=== PATIENT | male | born 1950 | race Caucasian/White ===

== ENCOUNTER 2022-09-07 06:30 | Day surgery (SDC) | payer OTHER ==
--- NOTE | 2022-09-03 13:11 | RAD REPORT ---
EXAM DESCRIPTION: RAD - Chest Pa And Lat (2 Views) - 09/03/2022 12:58 pm CLINICAL HISTORY: Pre op pending heart catheterization Chest pain. TECHNIQUE: PA and lateral views of the chest were obtained. FINDINGS: The lungs are hyperexpanded compatible with COPD. The heart is upper limit of normal in si ze. No fracture or aggressive bony process. Sternotomy wires. IMPRESSION: COPD without acute process identified. The USPSTF recommends annual screening for lung cancer with low-dose CT (LDCT) in adults aged 50 to 8 0 years who have a 20 pack-year smoking history and currently smoke or have quit within the past 15 y ears.
[2022-09-03 13:12] LABS: Absolute Lymphocytes (CBC) 1.1 K/uL (0.7-4.9); Hematocrit 42.2 % (39.6-49.0); Lymphocytes % 18.2 % (15.3-44.8); MCV 86.6 fL (80-100); MPV 8.1 fL (7.6-11.3); RBC Red Blood Cell Count 4.87 M/uL (4.33-5.43)
[2022-09-03 13:18] LABS: Protime INR 1.1
[2022-09-03 13:25] LABS: Potassium 4.4 mEq/L (3.5-5.1)
[2022-09-07] MEDS ORDERED: LIDOCAINE 1% 20 ML MDV ONE (06:46)
[2022-09-07] MEDS ORDERED: VERAPAMIL HCL 10 MG/4 ML VIAL IV ONE (06:47)
[2022-09-07] MEDS ORDERED: HEPARIN 5000 UNIT/ML 1 ML VIAL ONE (06:47)
[2022-09-07] MEDS ORDERED: MIDAZOLAM HCL 2 MG/2 ML INJ ONE (06:47)
[2022-09-07] MEDS ORDERED: FENTANYL CITR 100 MCG/2 ML ONE (06:47)
[2022-09-07] MEDS ORDERED: HEPARIN 10,000 UNIT/10 ML VIAL IV ONE ×2 (06:48→07:06)
[2022-09-07] MEDS ORDERED: CLOPIDOGREL 75 MG TABLET ONE (06:48)
[2022-09-07] MEDS ORDERED: ASPIRIN 325 MG TAB ONE (06:48)
[2022-09-07] MEDS ORDERED: NITROGLYCERIN 100 MCG/ML SYR (for cath lab use only) IV ONE (06:48)
[2022-09-07] MEDS ORDERED: TICAGRELOR 90 MG TABLET PO ONE (06:48)
[2022-09-07] MEDS ORDERED: ATROPINE SULF 1 MG/10 ML SYR IV ONE (06:48)
[2022-09-07] MEDS ORDERED: HEPA 1000U/500MLS 2,000 UNIT/1,000 ML BAG IV ONE (06:49)
[2022-09-07] MEDS ORDERED: NITROGLYCERIN/D5W 25 MG/250 ML BTL IV ONE (06:49)
[2022-09-07] MEDS ORDERED: NA CHLORIDE 0.9% 500 ML ONE (07:03)
[2022-09-07] MEDS ORDERED: METOPROLOL TARTRATE 5 MG/5 ML INJ IV ONE (08:07)
[2022-09-07 09:57] VITALS: BP 115/64; O2SAT 99
--- NOTE | 2022-09-07 17:59 | EKG ---
Test Date: 2022-09-03 Test Time: 12:38:39 Senior Business Intelligence Analyst: RADHA MEASUREMENT RESULTS: Intervals: Rate: 56 AR: 230 QRSD: 102 QT: 462 QTc: 445 Connelly: P: 39 AR: 230 QRS: -12 T: 18 INTERPRETIVE STATEMENTS: Sinus bradycardia with 1st degree AV block Nonspecific T wave abnormality Abnormal ECG Compared to ECG 03/04/2008 10:21:26 First degree AV block now present Sinus rhythm no longer present Myocardial infarct finding no longer present Possible ischemia no longer present T-wave abnormality still present Electronically Signed On 09-07-22 17:53:03 CDT by Scout Forte
--- NOTE | 2022-09-07 18:10 | OP ---
Date of Procedure: 09/07/2022 Surgeon: NIKKI HURST Procedure Performed: Selective coronary angiogram with bypass graft study. Indication: Abnormal stress test with chest pain. Access: Right femoral artery 6-Tanzanian closed with TR band. Complications: None. Bleeding: Less than 20 mL. Anesthesia: Total sedation time was 50 minutes. Description Of Procedure: After risks, benefits, alternatives were explained, the patient agreed to the procedure and signed informed consent. The patient was brought into the cardiac catheterization laboratory, prepped and draped in the usual sterile fashion. Then, I accessed the right femoral sonny ry using micropuncture kit, fluoroscopy, and ultrasound guidance, placed a 6-Tanzanian [place] sheath a nd took a 6-Tanzanian JL4 catheter into the aortic root, engaged the left main, took standard views and then exchanged for 6-Tanzanian JR4 catheter, engaged the RCA, took standard views and the catheter was p ushed over the wire into the LV, measured LVEDP and pullback did not record any gradient. LVEDP was elevated. Then using the JR4 catheter, engaged the SVG graft to the OM that was patent and could not find any other venous grafts. Also engaged the YUEN and the YUEN was not connected to the heart in fact it was small and arteritic. Then, I removed the catheter and sheath and placed a 6-Tanzanian Angio -Seal for closure with good hemostasis. Findings: 1.Left main; large and normal. 2.LAD; proximal segment appears to be normal. The mid segment, there is 90% stenosis, heavily calci fied. It is a long legion. Diagonal branches appear to be normal and the distal LAD and the septal branches give collaterals to the RCA. 3.Left circumflex; it is a small vessel, severely diseased proximally with patent SVG graft to OM. 4.RCA has proximal to mid stent with severe diffuse stenosis ranging between 70% and 90% and then it becomes a totally occluded to IRONER, gives collaterals from the LAD. 5.LVEDP elevated at 21 mmHg. 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 I only saw 1 graft that is fun ctional. YUEN definitely is not connected to the heart and it is very small and arteritic. The vanessa ent has severe LAD stenosis. I do not see any complication flow to the LAD. Plan: I will plan for a PCI of the LAD with atherectomy versus shockwave to be done at [facility]. I believe if we revascularized the LAD, the patient will do very well. We will schedule this after I discussed this in details with him and the family at the office. /KALPESH Voice ID: [id number] Report ID: [id number]
== END 2022-09-07 10:09 | disposition home or self-care (01) ==
LOC: CCL 06:30
PROVIDERS: ATTEND Internal Medicine
DX: I25.10 Atherosclerotic heart disease of native coronary artery without angina pectoris (principal); I25.82 Chronic total occlusion of coronary artery; I48.0 Paroxysmal atrial fibrillation; I10 Essential (primary) hypertension; E78.5 Hyperlipidemia, unspecified; I65.29 Occlusion and stenosis of unspecified carotid artery; Z79.899 Other long term (current) drug therapy; Z82.49 Family history of ischemic heart disease and other diseases of the circulatory system
CPT/HCPCS: 93005; 85025; 80048; 36415; 85610; 82947; 85730; 71046; 93567; 93459; 76937; C1893; C1760; Q9967; C1887; G0269; J2001; J2250; J3010; J7040; J0461; J1644

== ENCOUNTER 2023-05-04 08:02 | Day surgery (SDC) | payer OTHER ==
--- NOTE | 2023-04-30 09:22 | RAD REPORT ---
EXAM DESCRIPTION: RAD - Chest Pa And Lat (2 Views) - 04/30/2023 9:07 am CLINICAL HISTORY: Pre op pending Space Oar gel and implants. Hypertension COMPARISON: Chest Pa And Lat (2 Views) dated 09/03/2022; CHEST SINGLE VIEW dated 03/04/2008; CHEST PA AND LAT 2 VIEW dated 06/21/2005; CHEST SINGLE VIEW dated 06/21/2005 TECHNIQUE: PA and lateral views of the chest were obtained. FINDINGS: The lungs are clear. Heart size is normal and central vasculature is within normal limits, with sequelae of CABG again seen. No pleural effusion or pneumothorax seen. No acute bony finding no doc. IMPRESSION: No acute cardiopulmonary process.
[2023-04-30 09:43] LABS: Protime INR 1.07
[2023-05-04] MEDS: NA CHLORIDE 0.9% 1,000 ML ONE (08:40)
[2023-05-04] MEDS ORDERED: LIDOCAINE 1% MPF 5 ML VIAL ONE (09:51)
[2023-05-04] MEDS ORDERED: ONDANSETRON 4 MG/2 ML VIAL ONE (09:51)
[2023-05-04] MEDS ORDERED: KETOROLAC 30 MG/ML INJ ONE (09:52)
[2023-05-04] MEDS ORDERED: MIDAZOLAM HCL 2 MG/2 ML INJ ONE (09:52)
[2023-05-04] MEDS ORDERED: propofoL 200 MG/20 ML VIAL IV ONE (09:52)
[2023-05-04] MEDS ORDERED: FENTANYL CITR 100 MCG/2 ML ONE (09:52)
[2023-05-04] MEDS: CEFAZOLIN SODIUM 1 GM/VIAL ONE (10:20)
[2023-05-04] MEDS ORDERED: EPHEDRINE SULF 50 MG/ML VIAL ONE (10:22)
[2023-05-04] MEDS ORDERED: CODEINE 30MG/APAP 300MG TAB PO PRN (10:56)
[2023-05-04 13:08] VITALS: BP 126/65; TEMP 97.7; O2SAT 98
--- NOTE | 2023-05-04 14:37 | OP ---
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 2.Perineural invasion present. 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 2.Perineural invasion present. Principle Procedure: Transrectal ultrasound-guided transperineal placement of 2 fiducial markers. Transrectal ultrasound-guided SpaceOAR gel insertion. Indication For Procedure: Mr. Maria presented to the [facility] with a nodule in his prostate a nd elevated PSA, underwent a biopsy of the prostate revealing grade group 2 adenocarcinoma of the pro state plus perineural invasion. He was counseled on options for management and elected to proceed wi radiation therapy. He was then requested to have fiducial markers placed as well as the SpaceOAR gel inserted. Procedure In Detail: The patient was consented in the preoperative holding area before being transfe rred to the operative suite where general anesthesia was induced. He was given Ancef 2 g IV antimicr obial prophylaxis, and pneumo boots were provided for DVT prophylaxis. He was placed high in the lit hotomy position, padded and secured to the table appropriately. His genitalia were elevated out of t he perineal region using an Ioban drape, and the perineum itself was prepped with Betadine before paola ng draped in standard fashion. The transrectal ultrasound probe had been placed prior to prepping e perineum free hand via his anus into his rectum with ease. The stepper device was used to hold the probe in place, and the prostate was visualized from the apex to beyond the seminal vesicles in both axial as well as sagittal dimensions. The case was begun by placing a fiducial marker in the patien t's right lateral portion of his prostate successfully. This was done by inserting the fiducial kortney er needle through the perineum using ultrasound guidance. On the patient's left side, while there wa s significant periurethral calcifications, more laterally in the prostate and anteriorly, I placed a second fiducial marker on the patient's left side in the mid portion of the prostate. Once the fiduc ial markers had been successfully placed, I then navigated the ultrasound probe back to the midline a nd using the SpaceOAR needle with the bevel up, I inserted the needle via the perineum and navigated it under ultrasound guidance over the rectal hump and into the fat plane the base of the p rostate and the rectum beneath the space of [place]. I was able to navigate this successfully and with ease to the mid base portion of the prostate where I then switched back to axial imaging and ensured the needle was positioned directly in the midline. It was, and so I aspirated to ensure no blood or succus was obtained, and once no blood was obtained, I then injected a half a cc of saline w hich did distribute evenly across the midline of the prostate the rectum from the base of the prostate. As a result, given the beautiful hydrodissection, I then switched the syringe of salin e for the SpaceOAR component mixture and injection device, which I then attached to the needle and th en continuously injected the mixture into the previously marked hydrodissected space creating a beaut iful buffer between the rectum and the base of the prostate as evidenced ultrasonographically. I the n removed the SpaceOAR needle and held some pressure at the site of the needle insertion through the skin for a couple of minutes for the mild oozing observed there. The Betadine was cleaned away from his perineum, and the Ioban drape was removed. The ultrasound probe was also removed, and he was the n taken out of the lithotomy position. He was then awakened from general anesthesia, transferred to a stretcher, and then transferred to the recovery room in good condition. Complications: None. Discharge Disposition: He may follow up with Dr. Flaherty and initiate Radiation Oncology treatment as necessary at this point. Subsequent followup should be established with me approximately 6 months after completion of radiation therapy, anticipated within the next 3 months. He may follow up soone r if he has increased issues with bothersome lower urinary symptoms or other complications associated with the radiation therapy. Similarly, if he has any issues or complications following this procedure, he should follow up sooner for interval assessment. CRISTINA/SAKINAL Voice ID: [id number] Report ID: [id number]
== END 2023-05-04 12:28 | disposition home or self-care (01) ==
LOC: OR 08:02
PROVIDERS: ATTEND Urology
PROC: 0VH43YZ Insertion of Other Device into Prostate and Seminal Vesicles, Percutaneous Approach (ICD-10-PCS; principal; 2023-05-04 09:00)
DX: C61 Malignant neoplasm of prostate (principal); I25.10 Atherosclerotic heart disease of native coronary artery without angina pectoris; E11.9 Type 2 diabetes mellitus without complications; I10 Essential (primary) hypertension; Z95.1 Presence of aortocoronary bypass graft
CPT/HCPCS: 87086; 36415; 85610; 82947 ×2; 85730; 71046; 55874; J2704; J2001; J2250; J3010; J2405; J7030; J0690; 87088

== ENCOUNTER 2023-07-09 23:48 | Inpatient (IN) | payer OTHER ==
--- OUTSIDE RECORDS SUMMARY | 2023-07-09 23:54 | XMS REPORT | Continuity of Care Document ---
Author Name Unknown Address [address] [facility] [address] [place] [address] [facility] Address [address] [facility]. [address] [place] [address] Care Team Providers Care Shipping And Receiving Associate Name Role Phone Afsaneh King Attending Clinician Unavailable Anupam_T Attending Clinician Unavailable Sumit Attending Clinician UnavailAlfredo Cummings Attending Clinician Unavailable Omid Nagel Attending Clinician Unavailable Chai Null Attending Clinician UnavailKarie Florez Attending Clinician [phone] Chai Null Attending Clinician [phone] AleydaT Admitting Clinician Unavailable Sumit Admitting Clinician UnavailChai Smith Admitting Clinician UnavailOmid Thomas Admitting Clinician Unavailable Physician, No Primary or Family Admitting Clinic shayna Unavailable Payers Payer Name Policy Type Policy Number Effective Date Expirati on Date Source [employer] (MEDICARE REPLACEMENT PPO) [id number] 2022 00:00:00 [employer] MEDICARE PPO [id number] 2021 00:00:00 [facility] Problems Condition Name Condition Details Condition Category Status Onset Date Resolution Date Last Treatment Date Treating Clinician Comments Source Spinal stenosis of lumbar region Spinal Stenosis of Lumbar Region Problem Active 04-10 00:00: 00 [facility] Lumbar radiculopa thy Lumbar Radiculopa thy Problem Active 4-13 00:00: 00 [facility] Lumbosacra l spondylosi s Lumbosacra l Spondylosi s Problem Active 04-15 00:00: 00 [facility] Degenerati on of lumbar interverte bral disc Degenerati on of Lumbar Interverte bral Disc Problem Active 04-15 00:00: 00 [facility] Chronic low back pain Chronic Low Back Pain Problem Active 08-08 00:00: 00 [facility] [id number] Dizziness and giddiness Problem [facility] [id number] Elevated PSA Problem [facility] [id number] Benign prostatic hyperplasi a with lower urinary tract symptoms Problem [facility] [id number] Coronary artery disease involving grindstone coronary artery of grindstone heart, unspecifie d whether angina present Problem [facility] [id number] Antiplatel et or antithromb otic long-term use Problem [facility] [id number] Incomplete emptying of bladder Problem [facility] [id number] Other obstructiv e and reflux uropathy Problem [facility] [id number] Prostate nodule Problem [facility] [id number] Cancer of prostate with intermedia te recurrence risk (stage T2b-c or Grahn 7 or PSA 10-20) Problem [facility] [id number] Migraine with aura and without status migrainosu s, not intractabl e Problem [facility] [id number] Gastroesop hageal reflux disease without esophagiti s Problem [facility] [id number] Coronary artery disease involving grindstone coronary artery of grindstone heart without angina pectoris Problem [facility] [id number] NASIM (obstructi ve sleep apnea) Problem [facility] [id number] Arthritis Problem [facility] [id number] Moderate mixed hyperlipid emia not requiring statin therapy Problem [facility] [id number] Type 2 diabetes mellitus with other windows laptop technician y complicati on, without long-term current use of insulin Problem [facility] [id number] Primary hypertensi on Problem [facility] [id number] Hx of myocardial infarction Problem [facility] [id number] BMI 32.0-32.9, adult Problem [facility] Allergies, Adverse Reactions, Alerts Allergy Name Allergy Type Status Severity Reaction(s) Onset Date Inactive Date Treating Clinician Comments Source No Known Allergie s DA Active U 09-25 00:00: 00 [facility] No Known Allergie s DA Active U 09-24 00:00: 00 [facility] No Known Allergie s DA Active U 07-01 00:00: 00 [facility] No Known Allergie s DA Active U 4-12 00:00: 00 [facility] Social History Social Habit Start Date Stop Date Quantity Comments Source History of Tobacco Use [facility] Sex Assigned At [facility] Smoking Status Start Date Stop Date Source [facility] Medications Ordered Medication Name Filled Medication Name Start Date Stop Date Current Medication? Ordering Clinician Indication Dosage Frequency Signature (SIG) Comments Components Source Gentamicin 80mg Gentamicin 80mg 3- 00:00: 00 No 240mg [facility] Gentamicin 80mg Gentamicin 80mg 2023-0 3-31 00:00: 00 No 240mg [facility] Gentamicin 80mg Gentamicin 80mg 3-0 3-31 00:00: 00 No 240mg [facility] Gentamicin 80mg Gentamicin 80mg 3-0 3-31 00:00: 00 No 240mg [facility] Gentamicin 80mg Gentamicin 80mg 3-0 3-31 00:00: 00 No 240mg [facility] Gentamicin 80mg Gentamicin 80mg 3-0 3-31 00:00: 00 No 240mg [facility] Gentamicin 80mg Gentamicin 80mg 3-0 3-31 00:00: 00 No 240mg [facility] Gentamicin 80mg Gentamicin 80mg 3-0 3-31 00:00: 00 No 240mg [facility] Gentamicin 80mg Gentamicin 80mg 3-0 3-31 00:00: 00 No 240mg [facility] Gentamicin 80mg Gentamicin 80mg 3-0 3-31 00:00: 00 No 240mg [facility] Gentamicin 80mg Gentamicin 80mg 3-0 3-31 00:00: 00 No 240mg [facility] Gentamicin 80mg Gentamicin 80mg 3-0 3-31 00:00: 00 No 240mg [facility] Gentamicin 80mg Gentamicin 80mg 3-0 3-31 00:00: 00 No 240mg [facility] Gentamicin 80mg Gentamicin 80mg 3-0 3-31 00:00: 00 No 240mg [facility] Gentamicin 80mg Gentamicin 80mg 3-0 3-31 00:00: 00 No 240mg [facility] Gentamicin 80mg Gentamicin 80mg 3-0 3-31 00:00: 00 No 240mg [facility] Gentamicin 80mg Gentamicin 80mg 3-0 3-31 00:00: 00 No 240mg [facility] Gentamicin 80mg Gentamicin 80mg 2023-0 3-31 00:00: 00 No 240mg [facility] aspirin 81 mg tablet,marisol yed release aspirin 81 mg tablet,marisol yed release 04-15 00:00: 00 No aspirin 81 mg tablet,del ayed release [facility] hydrochloro thiazide 12.5 mg capsule hydrochloro thiazide 12.5 mg capsule 04-15 00:00: 00 No hydrochlor othiazide 12.5 mg capsule [facility] metformin 1,000 mg tablet metformin 1,000 mg tablet 04-15 00:00: 00 No metformin 1,000 mg tablet [facility] Multiple Vitamin Multiple Vitamin 04-15 00:00: 00 No Multiple Vitamin [facility] aspirin 81 mg tablet,marisol yed release aspirin 81 mg tablet,marisol yed release 04-15 00:00: 00 No aspirin 81 mg tablet,del ayed release [facility] hydrochloro thiazide 12.5 mg capsule hydrochloro thiazide 12.5 mg capsule 04-15 00:00: 00 No hydrochlor othiazide 12.5 mg capsule [facility] metformin 1,000 mg tablet metformin 1,000 mg tablet 04-15 00:00: 00 No metformin 1,000 mg tablet [facility] Multiple Vitamin Multiple Vitamin 04-15 00:00: 00 No Multiple Vitamin [facility] aspirin 81 mg tablet,marisol yed release aspirin 81 mg tablet,marisol yed release 04-15 00:00: 00 No aspirin 81 mg tablet,del ayed release [facility] hydrochloro thiazide 12.5 mg capsule hydrochloro thiazide 12.5 mg capsule 04-15 00:00: 00 No hydrochlor othiazide 12.5 mg capsule [facility] metformin 1,000 mg tablet metformin 1,000 mg tablet 04-15 00:00: 00 No metformin 1,000 mg tablet [facility] Multiple Vitamin Multiple Vitamin 04-15 00:00: 00 No Multiple Vitamin [facility] aspirin 81 mg tablet,marisol yed release aspirin 81 mg tablet,marisol yed release 04-15 00:00: 00 No aspirin 81 mg tablet,del ayed release [facility] hydrochloro thiazide 12.5 mg capsule hydrochloro thiazide 12.5 mg capsule 04-15 00:00: 00 No hydrochlor othiazide 12.5 mg capsule [facility] metformin 1,000 mg tablet metformin 1,000 mg tablet 04-15 00:00: 00 No metformin 1,000 mg tablet [facility] Multiple Vitamin Multiple Vitamin 04-15 00:00: 00 No Multiple Vitamin [facility] aspirin 81 mg tablet,marisol yed release aspirin 81 mg tablet,marisol yed release 04-15 00:00: 00 No aspirin 81 mg tablet,del ayed release [facility] metformin 1,000 mg tablet metformin 1,000 mg tablet 04-15 00:00: 00 No metformin 1,000 mg tablet [facility] Multiple Vitamin Multiple Vitamin 04-15 00:00: 00 No Multiple Vitamin [facility] aspirin 81 mg tablet,marisol yed release aspirin 81 mg tablet,marisol yed release 04-15 00:00: 00 No aspirin 81 mg tablet,del ayed release [facility] hydrochloro thiazide 12.5 mg capsule hydrochloro thiazide 12.5 mg capsule 04-15 00:00: 00 No hydrochlor othiazide 12.5 mg capsule [facility] metformin 1,000 mg tablet metformin 1,000 mg tablet 04-15 00:00: 00 No metformin 1,000 mg tablet [facility] Multiple Vitamin Multiple Vitamin 04-15 00:00: 00 No Multiple Vitamin [facility] Tricor 145 mg tablet Tricor 145 mg tablet 04-15 00:00: 00 No Tricor 145 mg tablet [facility] aspirin 81 mg tablet,marisol yed release aspirin 81 mg tablet,marisol yed release 04-15 00:00: 00 No aspirin 81 mg tablet,del ayed release [facility] hydrochloro thiazide 12.5 mg capsule hydrochloro thiazide 12.5 mg capsule 04-15 00:00: 00 No hydrochlor othiazide 12.5 mg capsule [facility] metformin 1,000 mg tablet metformin 1,000 mg tablet 04-15 00:00: 00 No metformin 1,000 mg tablet [facility] Multiple Vitamin Multiple Vitamin 04-15 00:00: 00 No Multiple Vitamin [facility] Medrol (Genaro) 4 mg tablets in a dose pack take as directed Medrol (Genaro) 4 mg tablets in a dose pack take as directed 0 08-08 00:00: 00 No Medrol (Genaro) 4 mg tablets in a dose pack take as directed [facility] Medrol (Genaro) 4 mg tablets in a dose pack take as directed Medrol (Genaro) 4 mg tablets in a dose pack take as directed 08-08 00:00: 00 No Medrol (Genaro) 4 mg tablets in a dose pack take as directed [facility] Medrol (Genaro) 4 mg tablets in a dose pack take as directed Medrol (Genaro) 4 mg tablets in a dose pack take as directed 08-08 00:00: 00 No Medrol (Genaro) 4 mg tablets in a dose pack take as directed [facility] Brilinta 90 mg tablet TAKE 1 TABLET BY MOUTH TWICE A DAY Brilinta 90 mg tablet TAKE 1 TABLET BY MOUTH TWICE A DAY No Brilinta 90 mg tablet TAKE 1 TABLET BY MOUTH TWICE A DAY [facility] ciprofloxac in 500 mg tablet TAKE 1 TABLET BY MOUTH TWICE A DAY FOR 3 DAYS STARTING TODAY ciprofloxac in 500 mg tablet TAKE 1 TABLET BY MOUTH TWICE A DAY FOR 3 DAYS STARTING TODAY No ciprofloxa priya 500 mg tablet TAKE 1 TABLET BY MOUTH TWICE A DAY FOR 3 DAYS STARTING TODAY [facility] fenofibrate nanocrystal lized 145 mg tablet fenofibrate nanocrystal lized 145 mg tablet No fenofibrat e nanocrysta llized 145 mg tablet [facility] gabapentin 300 mg capsule TAKE 1 CAPSULE BY MOUTH TWICE A DAY gabapentin 300 mg capsule TAKE 1 CAPSULE BY MOUTH TWICE A DAY No gabapentin 300 mg capsule TAKE 1 CAPSULE BY MOUTH TWICE A DAY [facility] glimepiride 1 mg tablet TAKE 1 TABLET BY MOUTH EVERY DAY WITH BREAKFAST OR THE FIRST MAIN MEAL OF THE DAY FOR 90 DAYS glimepiride 1 mg tablet TAKE 1 TABLET BY MOUTH EVERY DAY WITH BREAKFAST OR THE FIRST MAIN MEAL OF THE DAY FOR 90 DAYS No glimepirid e 1 mg tablet TAKE 1 TABLET BY MOUTH EVERY DAY WITH BREAKFAST OR THE FIRST MAIN MEAL OF THE DAY FOR 90 DAYS [facility] hydrochloro thiazide 12.5 mg capsule TAKE 1 CAPSULE BY MOUTH EVERY DAY IN THE MORNING FOR 90 DAYS hydrochloro thiazide 12.5 mg capsule TAKE 1 CAPSULE BY MOUTH EVERY DAY IN THE MORNING FOR 90 DAYS No hydrochlor othiazide 12.5 mg capsule TAKE 1 CAPSULE BY MOUTH EVERY DAY IN THE MORNING FOR 90 DAYS [facility] hydrochloro thiazide 12.5 mg tablet TAKE 1 TABLET BY MOUTH EVERY DAY hydrochloro thiazide 12.5 mg tablet TAKE 1 TABLET BY MOUTH EVERY DAY No hydrochlor othiazide 12.5 mg tablet TAKE 1 TABLET BY MOUTH EVERY DAY [facility] isosorbide mononitrate ER 30 mg tablet,exte nded release 24 hr TAKE 1 TABLET BY MOUTH EVERY DAY IN THE MORNING isosorbide mononitrate ER 30 mg tablet,exte nded release 24 hr TAKE 1 TABLET BY MOUTH EVERY DAY IN THE MORNING No isosorbide mononitrat e ER 30 mg tablet,ext ended release 24 hr TAKE 1 TABLET BY MOUTH EVERY DAY IN THE MORNING [facility] simvastatin 80 mg tablet simvastatin 80 mg tablet No simvastati n 80 mg tablet [facility] sotalol 80 mg tablet sotalol 80 mg tablet No sotalol 80 mg tablet [facility] tadalafil 20 mg tablet TAKE 1 TABLET BY MOUTH ONCE DAILY NEEDED FOR 30 DAYS tadalafil 20 mg tablet TAKE 1 TABLET BY MOUTH ONCE DAILY NEEDED FOR 30 DAYS No tadalafil 20 mg tablet TAKE 1 TABLET BY MOUTH ONCE DAILY NEEDED FOR 30 DAYS [facility] tadalafil 5 mg tablet TAKE 1 TABLET BY MOUTH ONCE DAILY tadalafil 5 mg tablet TAKE 1 TABLET BY MOUTH ONCE DAILY No tadalafil 5 mg tablet TAKE 1 TABLET BY MOUTH ONCE DAILY [facility] tamsulosin 0.4 mg capsule TAKE 1 CAPSULE BY MOUTH EVERY DAY FOR 30 DAYS tamsulosin 0.4 mg capsule TAKE 1 CAPSULE BY MOUTH EVERY DAY FOR 30 DAYS No tamsulosin 0.4 mg capsule TAKE 1 CAPSULE BY MOUTH EVERY DAY FOR 30 DAYS [facility] telmisartan 80 mg tablet telmisartan 80 mg tablet No telmisarta n 80 mg tablet [facility] amlodipine 10 mg tablet TAKE 1 TABLET BY MOUTH EVERY DAY amlodipine 10 mg tablet TAKE 1 TABLET BY MOUTH EVERY DAY No amlodipine 10 mg tablet TAKE 1 TABLET BY MOUTH EVERY DAY [facility] amoxicillin 500 mg capsule TAKE 2 CAPSULES BY MOUTH NOW THEN 1 CAPSULE BY MOUTH FOUR TIMES DAILY UNTIL ALL TAKEN amoxicillin 500 mg capsule TAKE 2 CAPSULES BY MOUTH NOW THEN 1 CAPSULE BY MOUTH FOUR TIMES DAILY UNTIL ALL TAKEN No amoxicilli n 500 mg capsule TAKE 2 CAPSULES BY MOUTH NOW THEN 1 CAPSULE BY MOUTH FOUR TIMES DAILY UNTIL ALL TAKEN [facility] atorvastati n 40 mg tablet TAKE 1 TABLET BY MOUTH EVERYDAY AT BEDTIME atorvastati n 40 mg tablet TAKE 1 TABLET BY MOUTH EVERYDAY AT BEDTIME No atorvastat in 40 mg tablet TAKE 1 TABLET BY MOUTH EVERYDAY AT BEDTIME [facility] Brilinta 90 mg tablet TAKE 1 TABLET BY MOUTH TWICE A DAY Brilinta 90 mg tablet TAKE 1 TABLET BY MOUTH TWICE A DAY No Brilinta 90 mg tablet TAKE 1 TABLET BY MOUTH TWICE A DAY [facility] ciprofloxac in 500 mg tablet TAKE 1 TABLET BY MOUTH TWICE A DAY FOR 3 DAYS STARTING TODAY ciprofloxac in 500 mg tablet TAKE 1 TABLET BY MOUTH TWICE A DAY FOR 3 DAYS STARTING TODAY No ciprofloxa priya 500 mg tablet TAKE 1 TABLET BY MOUTH TWICE A DAY FOR 3 DAYS STARTING TODAY [facility] fenofibrate nanocrystal lized 145 mg tablet fenofibrate nanocrystal lized 145 mg tablet No fenofibrat e nanocrysta llized 145 mg tablet [facility] gabapentin 300 mg capsule TAKE 2 CAPSULES 3 TIMES A DAY BY MOUTH FOR 30 DAYS. gabapentin 300 mg capsule TAKE 2 CAPSULES 3 TIMES A DAY BY MOUTH FOR 30 DAYS. No gabapentin 300 mg capsule TAKE 2 CAPSULES 3 TIMES A DAY BY MOUTH FOR 30 DAYS. [facility] glimepiride 1 mg tablet TAKE 1 TABLET BY MOUTH EVERY DAY WITH BREAKFAST OR THE FIRST MAIN MEAL OF THE DAY glimepiride 1 mg tablet TAKE 1 TABLET BY MOUTH EVERY DAY WITH BREAKFAST OR THE FIRST MAIN MEAL OF THE DAY No glimepirid e 1 mg tablet TAKE 1 TABLET BY MOUTH EVERY DAY WITH BREAKFAST OR THE FIRST MAIN MEAL OF THE DAY [facility] hydrochloro thiazide 12.5 mg capsule TAKE 1 CAPSULE BY MOUTH EVERY DAY IN THE MORNING hydrochloro thiazide 12.5 mg capsule TAKE 1 CAPSULE BY MOUTH EVERY DAY IN THE MORNING No hydrochlor othiazide 12.5 mg capsule TAKE 1 CAPSULE BY MOUTH EVERY DAY IN THE MORNING [facility] hydrochloro thiazide 12.5 mg tablet TAKE 1 TABLET BY MOUTH EVERY DAY hydrochloro thiazide 12.5 mg tablet TAKE 1 TABLET BY MOUTH EVERY DAY No hydrochlor othiazide 12.5 mg tablet TAKE 1 TABLET BY MOUTH EVERY DAY [facility] hydrocodone 7.5 mg-acetamin ophen 325 mg tablet TAKE 1 TABLET BY MOUTH EVERY 6 HOURS NEEDED FOR PAIN hydrocodone 7.5 mg-acetamin ophen 325 mg tablet TAKE 1 TABLET BY MOUTH EVERY 6 HOURS NEEDED FOR PAIN No hydrocodon e 7.5 mg-acetami nophen 325 mg tablet TAKE 1 TABLET BY MOUTH EVERY 6 HOURS NEEDED FOR PAIN [facility] isosorbide mononitrate ER 30 mg tablet,exte nded release 24 hr TAKE 1 TABLET BY MOUTH EVERY DAY IN THE MORNING isosorbide mononitrate ER 30 mg tablet,exte nded release 24 hr TAKE 1 TABLET BY MOUTH EVERY DAY IN THE MORNING No isosorbide mononitrat e ER 30 mg tablet,ext ended release 24 hr TAKE 1 TABLET BY MOUTH EVERY DAY IN THE MORNING [facility] simvastatin 80 mg tablet simvastatin 80 mg tablet No simvastati n 80 mg tablet [facility] sotalol 80 mg tablet TAKE 1 TABLET BY MOUTH TWICE A DAY sotalol 80 mg tablet TAKE 1 TABLET BY MOUTH TWICE A DAY No sotalol 80 mg tablet TAKE 1 TABLET BY MOUTH TWICE A DAY [facility] tadalafil 20 mg tablet TAKE 1 TABLET BY MOUTH ONCE DAILY NEEDED FOR 30 DAYS tadalafil 20 mg tablet TAKE 1 TABLET BY MOUTH ONCE DAILY NEEDED FOR 30 DAYS No tadalafil 20 mg tablet TAKE 1 TABLET BY MOUTH ONCE DAILY NEEDED FOR 30 DAYS [facility] tadalafil 5 mg tablet TAKE 1 TABLET BY MOUTH ONCE DAILY tadalafil 5 mg tablet TAKE 1 TABLET BY MOUTH ONCE DAILY No tadalafil 5 mg tablet TAKE 1 TABLET BY MOUTH ONCE DAILY [facility] tamsulosin 0.4 mg capsule TAKE 1 CAPSULE BY MOUTH EVERY DAY FOR 30 DAYS tamsulosin 0.4 mg capsule TAKE 1 CAPSULE BY MOUTH EVERY DAY FOR 30 DAYS No tamsulosin 0.4 mg capsule TAKE 1 CAPSULE BY MOUTH EVERY DAY FOR 30 DAYS [facility] telmisartan 80 mg tablet telmisartan 80 mg tablet No telmisarta n 80 mg tablet [facility] amlodipine 10 mg tablet Take 1 tablet every day by oral route. amlodipine 10 mg tablet Take 1 tablet every day by oral route. No 1 Q1D amlodipine 10 mg tablet Take 1 tablet every day by oral route. [facility] fenofibrate 150 mg capsule Take 1 capsule every day by oral route. fenofibrate 150 mg capsule Take 1 capsule every day by oral route. No 1capsul e(s) Q1D fenofibrat e 150 mg capsule Take 1 capsule every day by oral route. [facility] gabapentin 100 mg capsule Take 5 capsules every day by oral route. gabapentin 100 mg capsule Take 5 capsules every day by oral route. No 5capsul e(s) Q1D gabapentin 100 mg capsule Take 5 capsules every day by oral route. [facility] glimepiride 1 mg tablet Take 1 tablet every day by oral route. glimepiride 1 mg tablet Take 1 tablet every day by oral route. No 1 Q1D glimepirid e 1 mg tablet Take 1 tablet every day by oral route. [facility] simvastatin 80 mg tablet Take by oral route. simvastatin 80 mg tablet Take by oral route. No simvastati n 80 mg tablet Take by oral route. [facility] telmisartan 80 mg tablet Take 1 tablet every day by oral route. telmisartan 80 mg tablet Take 1 tablet every day by oral route. No 1 Q1D telmisarta n 80 mg tablet Take 1 tablet every day by oral route. [facility] amlodipine 10 mg tablet Take 1 tablet every day by oral route. amlodipine 10 mg tablet Take 1 tablet every day by oral route. No 1 Q1D amlodipine 10 mg tablet Take 1 tablet every day by oral route. [facility] fenofibrate 150 mg capsule Take 1 capsule every day by oral route. fenofibrate 150 mg capsule Take 1 capsule every day by oral route. No 1capsul e(s) Q1D fenofibrat e 150 mg capsule Take 1 capsule every day by oral route. [facility] gabapentin 100 mg capsule Take 5 capsules every day by oral route. gabapentin 100 mg capsule Take 5 capsules every day by oral route. No 5capsul e(s) Q1D gabapentin 100 mg capsule Take 5 capsules every day by oral route. [facility] glimepiride 1 mg tablet Take 1 tablet every day by oral route. glimepiride 1 mg tablet Take 1 tablet every day by oral route. No 1 Q1D glimepirid e 1 mg tablet Take 1 tablet every day by oral route. [facility] simvastatin 80 mg tablet Take by oral route. simvastatin 80 mg tablet Take by oral route. No simvastati n 80 mg tablet Take by oral route. [facility] telmisartan 80 mg tablet Take 1 tablet every day by oral route. telmisartan 80 mg tablet Take 1 tablet every day by oral route. No 1 Q1D telmisarta n 80 mg tablet Take 1 tablet every day by oral route. [facility] gabapentin 300 mg capsule Take 1 capsule every day by oral route at bedtime. gabapentin 300 mg capsule Take 1 capsule every day by oral route at bedtime. No 1capsul e(s) Q1D gabapentin 300 mg capsule Take 1 capsule every day by oral route at bedtime. [facility] amlodipine 10 mg tablet TAKE 1 TABLET BY MOUTH EVERY DAY amlodipine 10 mg tablet TAKE 1 TABLET BY MOUTH EVERY DAY No amlodipine 10 mg tablet TAKE 1 TABLET BY MOUTH EVERY DAY [facility] amoxicillin 500 mg-potassiu m clavulanate 125 mg tablet TAKE 1 TABLET BY MOUTH TWICE A DAY amoxicillin 500 mg-potassiu m clavulanate 125 mg tablet TAKE 1 TABLET BY MOUTH TWICE A DAY No amoxicilli n 500 mg-potassi um clavulanat e 125 mg tablet TAKE 1 TABLET BY MOUTH TWICE A DAY [facility] fenofibrate 150 mg capsule Take 1 capsule every day by oral route. fenofibrate 150 mg capsule Take 1 capsule every day by oral route. No 1capsul e(s) Q1D fenofibrat e 150 mg capsule Take 1 capsule every day by oral route. [facility] fenofibrate nanocrystal lized 145 mg tablet fenofibrate nanocrystal lized 145 mg tablet No fenofibrat e nanocrysta llized 145 mg tablet [facility] gabapentin 300 mg capsule TAKE 1 CAPSULE BY MOUTH TWICE A DAY FOR 90 DAYS gabapentin 300 mg capsule TAKE 1 CAPSULE BY MOUTH TWICE A DAY FOR 90 DAYS No gabapentin 300 mg capsule TAKE 1 CAPSULE BY MOUTH TWICE A DAY FOR 90 DAYS [facility] glimepiride 1 mg tablet TAKE 1 TABLET BY MOUTH EVERY DAY glimepiride 1 mg tablet TAKE 1 TABLET BY MOUTH EVERY DAY No glimepirid e 1 mg tablet TAKE 1 TABLET BY MOUTH EVERY DAY [facility] hydrochloro thiazide 12.5 mg tablet TAKE 1 TABLET BY MOUTH EVERY DAY hydrochloro thiazide 12.5 mg tablet TAKE 1 TABLET BY MOUTH EVERY DAY No hydrochlor othiazide 12.5 mg tablet TAKE 1 TABLET BY MOUTH EVERY DAY [facility] methylpredn isolone 4 mg tablets in a dose pack TAKE 6 TABLETS ON DAY 1 DIRECTED ON PACKAGE AND DECREASE BY 1 TAB EACH DAY FOR A TOTAL OF 6 DAYS methylpredn isolone 4 mg tablets in a dose pack TAKE 6 TABLETS ON DAY 1 DIRECTED ON PACKAGE AND DECREASE BY 1 TAB EACH DAY FOR A TOTAL OF 6 DAYS No methylpred nisolone 4 mg tablets in a dose pack TAKE 6 TABLETS ON DAY 1 DIRECTED ON PACKAGE AND DECREASE BY 1 TAB EACH DAY FOR A TOTAL OF 6 DAYS [facility] simvastatin 80 mg tablet simvastatin 80 mg tablet No simvastati n 80 mg tablet [facility] sotalol 80 mg tablet sotalol 80 mg tablet No sotalol 80 mg tablet [facility] tadalafil 20 mg tablet 1 TABLET ORALLY NEEDED 30 DAYS tadalafil 20 mg tablet 1 TABLET ORALLY NEEDED 30 DAYS No tadalafil 20 mg tablet 1 TABLET ORALLY NEEDED 30 DAYS [facility] telmisartan 80 mg tablet Take 1 tablet every day by oral route. telmisartan 80 mg tablet Take 1 tablet every day by oral route. No telmisarta n 80 mg tablet Take 1 tablet every day by oral route. [facility] amlodipine 10 mg tablet TAKE 1 TABLET BY MOUTH EVERY DAY amlodipine 10 mg tablet TAKE 1 TABLET BY MOUTH EVERY DAY No amlodipine 10 mg tablet TAKE 1 TABLET BY MOUTH EVERY DAY [facility] amoxicillin 500 mg-potassiu m clavulanate 125 mg tablet TAKE 1 TABLET BY MOUTH TWICE A DAY amoxicillin 500 mg-potassiu m clavulanate 125 mg tablet TAKE 1 TABLET BY MOUTH TWICE A DAY No amoxicilli n 500 mg-potassi um clavulanat e 125 mg tablet TAKE 1 TABLET BY MOUTH TWICE A DAY [facility] fenofibrate 150 mg capsule Take 1 capsule every day by oral route. fenofibrate 150 mg capsule Take 1 capsule every day by oral route. No 1capsul e(s) Q1D fenofibrat e 150 mg capsule Take 1 capsule every day by oral route. [facility] fenofibrate nanocrystal lized 145 mg tablet fenofibrate nanocrystal lized 145 mg tablet No fenofibrat e nanocrysta llized 145 mg tablet [facility] gabapentin 300 mg capsule TAKE 1 CAPSULE BY MOUTH TWICE A DAY FOR 90 DAYS gabapentin 300 mg capsule TAKE 1 CAPSULE BY MOUTH TWICE A DAY FOR 90 DAYS No gabapentin 300 mg capsule TAKE 1 CAPSULE BY MOUTH TWICE A DAY FOR 90 DAYS [facility] glimepiride 1 mg tablet TAKE 1 TABLET BY MOUTH EVERY DAY glimepiride 1 mg tablet TAKE 1 TABLET BY MOUTH EVERY DAY No glimepirid e 1 mg tablet TAKE 1 TABLET BY MOUTH EVERY DAY [facility] hydrochloro thiazide 12.5 mg tablet TAKE 1 TABLET BY MOUTH EVERY DAY hydrochloro thiazide 12.5 mg tablet TAKE 1 TABLET BY MOUTH EVERY DAY No hydrochlor othiazide 12.5 mg tablet TAKE 1 TABLET BY MOUTH EVERY DAY [facility] methylpredn isolone 4 mg tablets in a dose pack TAKE 6 TABLETS ON DAY 1 DIRECTED ON PACKAGE AND DECREASE BY 1 TAB EACH DAY FOR A TOTAL OF 6 DAYS methylpredn isolone 4 mg tablets in a dose pack TAKE 6 TABLETS ON DAY 1 DIRECTED ON PACKAGE AND DECREASE BY 1 TAB EACH DAY FOR A TOTAL OF 6 DAYS No methylpred nisolone 4 mg tablets in a dose pack TAKE 6 TABLETS ON DAY 1 DIRECTED ON PACKAGE AND DECREASE BY 1 TAB EACH DAY FOR A TOTAL OF 6 DAYS [facility] simvastatin 80 mg tablet simvastatin 80 mg tablet No simvastati n 80 mg tablet [facility] sotalol 80 mg tablet sotalol 80 mg tablet No sotalol 80 mg tablet [facility] tadalafil 20 mg tablet 1 TABLET ORALLY NEEDED 30 DAYS tadalafil 20 mg tablet 1 TABLET ORALLY NEEDED 30 DAYS No tadalafil 20 mg tablet 1 TABLET ORALLY NEEDED 30 DAYS [facility] telmisartan 80 mg tablet Take 1 tablet every day by oral route. telmisartan 80 mg tablet Take 1 tablet every day by oral route. No telmisarta n 80 mg tablet Take 1 tablet every day by oral route. [facility] amlodipine 10 mg tablet TAKE 1 TABLET BY MOUTH EVERY DAY amlodipine 10 mg tablet TAKE 1 TABLET BY MOUTH EVERY DAY No amlodipine 10 mg tablet TAKE 1 TABLET BY MOUTH EVERY DAY [facility] amoxicillin 500 mg-potassiu m clavulanate 125 mg tablet TAKE 1 TABLET BY MOUTH TWICE A DAY amoxicillin 500 mg-potassiu m clavulanate 125 mg tablet TAKE 1 TABLET BY MOUTH TWICE A DAY No amoxicilli n 500 mg-potassi um clavulanat e 125 mg tablet TAKE 1 TABLET BY MOUTH TWICE A DAY [facility] fenofibrate 150 mg capsule Take 1 capsule every day by oral route. fenofibrate 150 mg capsule Take 1 capsule every day by oral route. No 1capsul e(s) Q1D fenofibrat e 150 mg capsule Take 1 capsule every day by oral route. [facility] fenofibrate nanocrystal lized 145 mg tablet fenofibrate nanocrystal lized 145 mg tablet No fenofibrat e nanocrysta llized 145 mg tablet [facility] gabapentin 300 mg capsule TAKE 1 CAPSULE BY MOUTH TWICE A DAY FOR 90 DAYS gabapentin 300 mg capsule TAKE 1 CAPSULE BY MOUTH TWICE A DAY FOR 90 DAYS No gabapentin 300 mg capsule TAKE 1 CAPSULE BY MOUTH TWICE A DAY FOR 90 DAYS [facility] glimepiride 1 mg tablet TAKE 1 TABLET BY MOUTH EVERY DAY glimepiride 1 mg tablet TAKE 1 TABLET BY MOUTH EVERY DAY No glimepirid e 1 mg tablet TAKE 1 TABLET BY MOUTH EVERY DAY [facility] hydrochloro thiazide 12.5 mg tablet TAKE 1 TABLET BY MOUTH EVERY DAY hydrochloro thiazide 12.5 mg tablet TAKE 1 TABLET BY MOUTH EVERY DAY No hydrochlor othiazide 12.5 mg tablet TAKE 1 TABLET BY MOUTH EVERY DAY [facility] methylpredn isolone 4 mg tablets in a dose pack TAKE 6 TABLETS ON DAY 1 DIRECTED ON PACKAGE AND DECREASE BY 1 TAB EACH DAY FOR A TOTAL OF 6 DAYS methylpredn isolone 4 mg tablets in a dose pack TAKE 6 TABLETS ON DAY 1 DIRECTED ON PACKAGE AND DECREASE BY 1 TAB EACH DAY FOR A TOTAL OF 6 DAYS No methylpred nisolone 4 mg tablets in a dose pack TAKE 6 TABLETS ON DAY 1 DIRECTED ON PACKAGE AND DECREASE BY 1 TAB EACH DAY FOR A TOTAL OF 6 DAYS [facility] simvastatin 80 mg tablet simvastatin 80 mg tablet No simvastati n 80 mg tablet [facility] sotalol 80 mg tablet sotalol 80 mg tablet No sotalol 80 mg tablet [facility] tadalafil 20 mg tablet 1 TABLET ORALLY NEEDED 30 DAYS tadalafil 20 mg tablet 1 TABLET ORALLY NEEDED 30 DAYS No tadalafil 20 mg tablet 1 TABLET ORALLY NEEDED 30 DAYS [facility] telmisartan 80 mg tablet Take 1 tablet every day by oral route. telmisartan 80 mg tablet Take 1 tablet every day by oral route. No telmisarta n 80 mg tablet Take 1 tablet every day by oral route. [facility] amlodipine 10 mg tablet TAKE 1 TABLET BY MOUTH EVERY DAY amlodipine 10 mg tablet TAKE 1 TABLET BY MOUTH EVERY DAY No amlodipine 10 mg tablet TAKE 1 TABLET BY MOUTH EVERY DAY [facility] amoxicillin 500 mg-potassiu m clavulanate 125 mg tablet TAKE 1 TABLET BY MOUTH TWICE A DAY amoxicillin 500 mg-potassiu m clavulanate 125 mg tablet TAKE 1 TABLET BY MOUTH TWICE A DAY No amoxicilli n 500 mg-potassi um clavulanat e 125 mg tablet TAKE 1 TABLET BY MOUTH TWICE A DAY [facility] fenofibrate 150 mg capsule Take 1 capsule every day by oral route. fenofibrate 150 mg capsule Take 1 capsule every day by oral route. No 1capsul e(s) Q1D fenofibrat e 150 mg capsule Take 1 capsule every day by oral route. [facility] fenofibrate nanocrystal lized 145 mg tablet fenofibrate nanocrystal lized 145 mg tablet No fenofibrat e nanocrysta llized 145 mg tablet [facility] gabapentin 300 mg capsule TAKE 1 CAPSULE BY MOUTH TWICE A DAY gabapentin 300 mg capsule TAKE 1 CAPSULE BY MOUTH TWICE A DAY No gabapentin 300 mg capsule TAKE 1 CAPSULE BY MOUTH TWICE A DAY [facility] glimepiride 1 mg tablet TAKE 1 TABLET BY MOUTH EVERY DAY glimepiride 1 mg tablet TAKE 1 TABLET BY MOUTH EVERY DAY No glimepirid e 1 mg tablet TAKE 1 TABLET BY MOUTH EVERY DAY [facility] hydrochloro thiazide 12.5 mg tablet TAKE 1 TABLET BY MOUTH EVERY DAY hydrochloro thiazide 12.5 mg tablet TAKE 1 TABLET BY MOUTH EVERY DAY No hydrochlor othiazide 12.5 mg tablet TAKE 1 TABLET BY MOUTH EVERY DAY [facility] methylpredn isolone 4 mg tablets in a dose pack TAKE 6 TABLETS ON DAY 1 DIRECTED ON PACKAGE AND DECREASE BY 1 TAB EACH DAY FOR A TOTAL OF 6 DAYS methylpredn isolone 4 mg tablets in a dose pack TAKE 6 TABLETS ON DAY 1 DIRECTED ON PACKAGE AND DECREASE BY 1 TAB EACH DAY FOR A TOTAL OF 6 DAYS No methylpred nisolone 4 mg tablets in a dose pack TAKE 6 TABLETS ON DAY 1 DIRECTED ON PACKAGE AND DECREASE BY 1 TAB EACH DAY FOR A TOTAL OF 6 DAYS [facility] simvastatin 80 mg tablet simvastatin 80 mg tablet No simvastati n 80 mg tablet [facility] sotalol 80 mg tablet sotalol 80 mg tablet No sotalol 80 mg tablet [facility] tadalafil 20 mg tablet 1 TABLET ORALLY NEEDED 30 DAYS tadalafil 20 mg tablet 1 TABLET ORALLY NEEDED 30 DAYS No tadalafil 20 mg tablet 1 TABLET ORALLY NEEDED 30 DAYS [facility] tamsulosin 0.4 mg capsule TAKE 1 CAPSULE BY MOUTH EVERY DAY FOR 30 DAYS tamsulosin 0.4 mg capsule TAKE 1 CAPSULE BY MOUTH EVERY DAY FOR 30 DAYS No tamsulosin 0.4 mg capsule TAKE 1 CAPSULE BY MOUTH EVERY DAY FOR 30 DAYS [facility] telmisartan 80 mg tablet Take 1 tablet every day by oral route. telmisartan 80 mg tablet Take 1 tablet every day by oral route. No telmisarta n 80 mg tablet Take 1 tablet every day by oral route. [facility] amlodipine 10 mg tablet TAKE 1 TABLET BY MOUTH EVERY DAY amlodipine 10 mg tablet TAKE 1 TABLET BY MOUTH EVERY DAY No amlodipine 10 mg tablet TAKE 1 TABLET BY MOUTH EVERY DAY [facility] amoxicillin 500 mg-potassiu m clavulanate 125 mg tablet TAKE 1 TABLET BY MOUTH TWICE A DAY amoxicillin 500 mg-potassiu m clavulanate 125 mg tablet TAKE 1 TABLET BY MOUTH TWICE A DAY No amoxicilli n 500 mg-potassi um clavulanat e 125 mg tablet TAKE 1 TABLET BY MOUTH TWICE A DAY [facility] atorvastati n 40 mg tablet TAKE 1 TABLET BY MOUTH EVERYDAY AT BEDTIME atorvastati n 40 mg tablet TAKE 1 TABLET BY MOUTH EVERYDAY AT BEDTIME No atorvastat in 40 mg tablet TAKE 1 TABLET BY MOUTH EVERYDAY AT BEDTIME [facility] Brilinta 90 mg tablet TAKE 1 TABLET BY MOUTH TWICE A DAY Brilinta 90 mg tablet TAKE 1 TABLET BY MOUTH TWICE A DAY No Brilinta 90 mg tablet TAKE 1 TABLET BY MOUTH TWICE A DAY [facility] ciprofloxac in 500 mg tablet TAKE 1 TABLET BY MOUTH TWICE A DAY FOR 3 DAYS STARTING TODAY ciprofloxac in 500 mg tablet TAKE 1 TABLET BY MOUTH TWICE A DAY FOR 3 DAYS STARTING TODAY No ciprofloxa priya 500 mg tablet TAKE 1 TABLET BY MOUTH TWICE A DAY FOR 3 DAYS STARTING TODAY [facility] fenofibrate 150 mg capsule Take 1 capsule every day by oral route. fenofibrate 150 mg capsule Take 1 capsule every day by oral route. No 1capsul e(s) Q1D fenofibrat e 150 mg capsule Take 1 capsule every day by oral route. [facility] fenofibrate nanocrystal lized 145 mg tablet fenofibrate nanocrystal lized 145 mg tablet No fenofibrat e nanocrysta llized 145 mg tablet [facility] gabapentin 300 mg capsule Take 2 capsules 3 times a day by oral route at bedtime for 30 days. gabapentin 300 mg capsule Take 2 capsules 3 times a day by oral route at bedtime for 30 days. No 2capsul e(s) TID gabapentin 300 mg capsule Take 2 capsules 3 times a day by oral route at bedtime for 30 days. [facility] glimepiride 1 mg tablet TAKE 1 TABLET BY MOUTH EVERY DAY WITH BREAKFAST OR THE FIRST MAIN MEAL OF THE DAY FOR 90 DAYS glimepiride 1 mg tablet TAKE 1 TABLET BY MOUTH EVERY DAY WITH BREAKFAST OR THE FIRST MAIN MEAL OF THE DAY FOR 90 DAYS No glimepirid e 1 mg tablet TAKE 1 TABLET BY MOUTH EVERY DAY WITH BREAKFAST OR THE FIRST MAIN MEAL OF THE DAY FOR 90 DAYS [facility] hydrochloro thiazide 12.5 mg capsule TAKE 1 CAPSULE BY MOUTH EVERY DAY IN THE MORNING FOR 90 DAYS hydrochloro thiazide 12.5 mg capsule TAKE 1 CAPSULE BY MOUTH EVERY DAY IN THE MORNING FOR 90 DAYS No hydrochlor othiazide 12.5 mg capsule TAKE 1 CAPSULE BY MOUTH EVERY DAY IN THE MORNING FOR 90 DAYS [facility] hydrochloro thiazide 12.5 mg tablet TAKE 1 TABLET BY MOUTH EVERY DAY hydrochloro thiazide 12.5 mg tablet TAKE 1 TABLET BY MOUTH EVERY DAY No hydrochlor othiazide 12.5 mg tablet TAKE 1 TABLET BY MOUTH EVERY DAY [facility] isosorbide mononitrate ER 30 mg tablet,exte nded release 24 hr TAKE 1 TABLET BY MOUTH EVERY DAY IN THE MORNING isosorbide mononitrate ER 30 mg tablet,exte nded release 24 hr TAKE 1 TABLET BY MOUTH EVERY DAY IN THE MORNING No isosorbide mononitrat e ER 30 mg tablet,ext ended release 24 hr TAKE 1 TABLET BY MOUTH EVERY DAY IN THE MORNING [facility] methylpredn isolone 4 mg tablets in a dose pack TAKE 6 TABLETS ON DAY 1 DIRECTED ON PACKAGE AND DECREASE BY 1 TAB EACH DAY FOR A TOTAL OF 6 DAYS methylpredn isolone 4 mg tablets in a dose pack TAKE 6 TABLETS ON DAY 1 DIRECTED ON PACKAGE AND DECREASE BY 1 TAB EACH DAY FOR A TOTAL OF 6 DAYS No methylpred nisolone 4 mg tablets in a dose pack TAKE 6 TABLETS ON DAY 1 DIRECTED ON PACKAGE AND DECREASE BY 1 TAB EACH DAY FOR A TOTAL OF 6 DAYS [facility] simvastatin 80 mg tablet simvastatin 80 mg tablet No simvastati n 80 mg tablet [facility] sotalol 80 mg tablet sotalol 80 mg tablet No sotalol 80 mg tablet [facility] tadalafil 20 mg tablet TAKE 1 TABLET BY MOUTH ONCE DAILY NEEDED FOR 30 DAYS tadalafil 20 mg tablet TAKE 1 TABLET BY MOUTH ONCE DAILY NEEDED FOR 30 DAYS No tadalafil 20 mg tablet TAKE 1 TABLET BY MOUTH ONCE DAILY NEEDED FOR 30 DAYS [facility] tadalafil 5 mg tablet TAKE 1 TABLET BY MOUTH ONCE DAILY tadalafil 5 mg tablet TAKE 1 TABLET BY MOUTH ONCE DAILY No tadalafil 5 mg tablet TAKE 1 TABLET BY MOUTH ONCE DAILY [facility] tamsulosin 0.4 mg capsule TAKE 1 CAPSULE BY MOUTH EVERY DAY FOR 30 DAYS tamsulosin 0.4 mg capsule TAKE 1 CAPSULE BY MOUTH EVERY DAY FOR 30 DAYS No tamsulosin 0.4 mg capsule TAKE 1 CAPSULE BY MOUTH EVERY DAY FOR 30 DAYS [facility] telmisartan 80 mg tablet Take 1 tablet every day by oral route. telmisartan 80 mg tablet Take 1 tablet every day by oral route. No telmisarta n 80 mg tablet Take 1 tablet every day by oral route. [facility] amlodipine 10 mg tablet Take 1 tablet every day by oral route. amlodipine 10 mg tablet Take 1 tablet every day by oral route. No 1 Q1D amlodipine 10 mg tablet Take 1 tablet every day by oral route. [facility] fenofibrate 150 mg capsule Take 1 capsule every day by oral route. fenofibrate 150 mg capsule Take 1 capsule every day by oral route. No 1capsul e(s) Q1D fenofibrat e 150 mg capsule Take 1 capsule every day by oral route. [facility] gabapentin 300 mg capsule Take 1 capsule every day by oral route at bedtime. gabapentin 300 mg capsule Take 1 capsule every day by oral route at bedtime. No 1capsul e(s) Q1D gabapentin 300 mg capsule Take 1 capsule every day by oral route at bedtime. [facility] glimepiride 1 mg tablet Take 1 tablet every day by oral route. glimepiride 1 mg tablet Take 1 tablet every day by oral route. No 1 Q1D glimepirid e 1 mg tablet Take 1 tablet every day by oral route. [facility] simvastatin 80 mg tablet Take by oral route. simvastatin 80 mg tablet Take by oral route. No simvastati n 80 mg tablet Take by oral route. [facility] telmisartan 80 mg tablet Take 1 tablet every day by oral route. telmisartan 80 mg tablet Take 1 tablet every day by oral route. No 1 Q1D telmisarta n 80 mg tablet Take 1 tablet every day by oral route. [facility] amlodipine 10 mg tablet TAKE 1 TABLET BY MOUTH EVERY DAY amlodipine 10 mg tablet TAKE 1 TABLET BY MOUTH EVERY DAY No amlodipine 10 mg tablet TAKE 1 TABLET BY MOUTH EVERY DAY [facility] amoxicillin 500 mg-potassiu m clavulanate 125 mg tablet TAKE 1 TABLET BY MOUTH TWICE A DAY amoxicillin 500 mg-potassiu m clavulanate 125 mg tablet TAKE 1 TABLET BY MOUTH TWICE A DAY No amoxicilli n 500 mg-potassi um clavulanat e 125 mg tablet TAKE 1 TABLET BY MOUTH TWICE A DAY [facility] fenofibrate 150 mg capsule Take 1 capsule every day by oral route. fenofibrate 150 mg capsule Take 1 capsule every day by oral route. No 1capsul e(s) Q1D fenofibrat e 150 mg capsule Take 1 capsule every day by oral route. [facility] fenofibrate nanocrystal lized 145 mg tablet fenofibrate nanocrystal lized 145 mg tablet No fenofibrat e nanocrysta llized 145 mg tablet [facility] gabapentin 300 mg capsule TAKE 1 CAPSULE BY MOUTH TWICE A DAY FOR 90 DAYS gabapentin 300 mg capsule TAKE 1 CAPSULE BY MOUTH TWICE A DAY FOR 90 DAYS No gabapentin 300 mg capsule TAKE 1 CAPSULE BY MOUTH TWICE A DAY FOR 90 DAYS [facility] glimepiride 1 mg tablet TAKE 1 TABLET BY MOUTH EVERY DAY glimepiride 1 mg tablet TAKE 1 TABLET BY MOUTH EVERY DAY No glimepirid e 1 mg tablet TAKE 1 TABLET BY MOUTH EVERY DAY [facility] hydrochloro thiazide 12.5 mg tablet TAKE 1 TABLET BY MOUTH EVERY DAY hydrochloro thiazide 12.5 mg tablet TAKE 1 TABLET BY MOUTH EVERY DAY No hydrochlor othiazide 12.5 mg tablet TAKE 1 TABLET BY MOUTH EVERY DAY [facility] methylpredn isolone 4 mg tablets in a dose pack TAKE 6 TABLETS ON DAY 1 DIRECTED ON PACKAGE AND DECREASE BY 1 TAB EACH DAY FOR A TOTAL OF 6 DAYS methylpredn isolone 4 mg tablets in a dose pack TAKE 6 TABLETS ON DAY 1 DIRECTED ON PACKAGE AND DECREASE BY 1 TAB EACH DAY FOR A TOTAL OF 6 DAYS No methylpred nisolone 4 mg tablets in a dose pack TAKE 6 TABLETS ON DAY 1 DIRECTED ON PACKAGE AND DECREASE BY 1 TAB EACH DAY FOR A TOTAL OF 6 DAYS [facility] simvastatin 80 mg tablet simvastatin 80 mg tablet No simvastati n 80 mg tablet [facility] sotalol 80 mg tablet sotalol 80 mg tablet No sotalol 80 mg tablet [facility] tadalafil 20 mg tablet 1 TABLET ORALLY NEEDED 30 DAYS tadalafil 20 mg tablet 1 TABLET ORALLY NEEDED 30 DAYS No tadalafil 20 mg tablet 1 TABLET ORALLY NEEDED 30 DAYS [facility] telmisartan 80 mg tablet Take 1 tablet every day by oral route. telmisartan 80 mg tablet Take 1 tablet every day by oral route. No telmisarta n 80 mg tablet Take 1 tablet every day by oral route. [facility] amlodipine 10 mg tablet TAKE 1 TABLET BY MOUTH EVERY DAY amlodipine 10 mg tablet TAKE 1 TABLET BY MOUTH EVERY DAY No amlodipine 10 mg tablet TAKE 1 TABLET BY MOUTH EVERY DAY [facility] Telmisartan 80 MG Telmisartan 80 MG No 1{table t} QD Telmisarta n 80 MG Gabapentin 300 MG Gabapentin 300 MG No 1{capsu le} BID Gabapentin 300 MG amLODIPine Besylate 10 MG amLODIPine Besylate 10 MG No 1{table t} QD amLODIPine Besylate 10 MG Cialis 20 MG Cialis 20 MG No 1{table t} Cialis 20 MG Fenofibrate 145 MG Fenofibrate 145 MG No 1{table t} QD Fenofibrat e 145 MG Multivitami n Adult - Multivitami n Adult - No 1{table t} QD Multivitam in Adult - Glimepiride 1 MG Glimepiride 1 MG No 1{table t_with_ breakfa st_or_t he_firs t_main_ meal_of _the_da y} QD Glimepirid e 1 MG hydroCHLORO thiazide 12.5 MG hydroCHLORO thiazide 12.5 MG No 1{capsu le_in_t he_morn ing} QD hydroCHLOR Othiazide 12.5 MG Sotalol HCl 80 MG Sotalol HCl 80 MG No 1{table t} BID Sotalol HCl 80 MG Simvastatin 80 MG Simvastatin 80 MG No 1{table t_in_th e_eveni ng} QD Simvastati n 80 MG Aspirin 81 81 MG Aspirin 81 81 MG No 1{table t} QD Aspirin 81 81 MG Gabapentin 300 MG Gabapentin 300 MG No Gabapentin 300 MG Omeprazole 20 MG Omeprazole 20 MG No Omeprazole 20 MG Multivitami n Adult - Multivitami n Adult - No 1{table t} QD Multivitam in Adult - Telmisartan 80 MG Telmisartan 80 MG No 1{table t} QD Telmisarta n 80 MG atorvastati n 40 mg tablet TAKE 1 TABLET BY MOUTH EVERYDAY AT BEDTIME atorvastati n 40 mg tablet TAKE 1 TABLET BY MOUTH EVERYDAY AT BEDTIME No atorvastat in 40 mg tablet TAKE 1 TABLET BY MOUTH EVERYDAY AT BEDTIME [facility] Tadalafil 5 MG Tadalafil 5 MG No 1{table t_as_ne eded} QD Tadalafil 5 MG B12 5000 MCG B12 5000 MCG No B12 5000 MCG Lipitor 40 MG Lipitor 40 MG No 1{table t} QD Lipitor 40 MG Sotalol HCl 80 MG Sotalol HCl 80 MG No 1{table t} BID Sotalol HCl 80 MG hydroCHLORO thiazide 12.5 MG hydroCHLORO thiazide 12.5 MG No 1{capsu le_in_t he_morn ing} QD hydroCHLOR Othiazide 12.5 MG Co Q 10 100 MG Co Q 10 100 MG No Co Q 10 100 MG Brilinta 90 MG Brilinta 90 MG No 1{table t} BID Brilinta 90 MG Fenofibrate 145 MG Fenofibrate 145 MG No 1{table t} QD Fenofibrat e 145 MG Glimepiride 1 MG Glimepiride 1 MG No 1{table t_with_ breakfa st_or_t he_firs t_main_ meal_of _the_da y} QD Glimepirid e 1 MG Aspirin 81 81 MG Aspirin 81 81 MG No 1{table t} QD Aspirin 81 81 MG Gabapentin 300 MG Gabapentin 300 MG No Gabapentin 300 MG Omeprazole 20 MG Omeprazole 20 MG No Omeprazole 20 MG Multivitami n Adult - Multivitami n Adult - No 1{table t} QD Multivitam in Adult - Telmisartan 80 MG Telmisartan 80 MG No 1{table t} QD Telmisarta n 80 MG Tadalafil 5 MG Tadalafil 5 MG No 1{table t_as_ne eded} QD Tadalafil 5 MG B12 5000 MCG B12 5000 MCG No B12 5000 MCG Lipitor 40 MG Lipitor 40 MG No 1{table t} QD Lipitor 40 MG Sotalol HCl 80 MG Sotalol HCl 80 MG No 1{table t} BID Sotalol HCl 80 MG hydroCHLORO thiazide 12.5 MG hydroCHLORO thiazide 12.5 MG No 1{capsu le_in_t he_morn ing} QD hydroCHLOR Othiazide 12.5 MG Co Q 10 100 MG Co Q 10 100 MG No Co Q 10 100 MG Brilinta 90 MG Brilinta 90 MG No 1{table t} BID Brilinta 90 MG Fenofibrate 145 MG Fenofibrate 145 MG No 1{table t} QD Fenofibrat e 145 MG Glimepiride 1 MG Glimepiride 1 MG No 1{table t_with_ breakfa st_or_t he_firs t_main_ meal_of _the_da y} QD Glimepirid e 1 MG Aspirin 81 81 MG Aspirin 81 81 MG No 1{table t} QD Aspirin 81 81 MG Gabapentin 300 MG Gabapentin 300 MG No Gabapentin 300 MG Omeprazole 20 MG Omeprazole 20 MG No Omeprazole 20 MG Multivitami n Adult - Multivitami n Adult - No 1{table t} QD Multivitam in Adult - Telmisartan 80 MG Telmisartan 80 MG No 1{table t} QD Telmisarta n 80 MG Tadalafil 5 MG Tadalafil 5 MG No 1{table t_as_ne eded} QD Tadalafil 5 MG B12 5000 MCG B12 5000 MCG No B12 5000 MCG Brilinta 90 mg tablet TAKE 1 TABLET BY MOUTH TWICE A DAY Brilinta 90 mg tablet TAKE 1 TABLET BY MOUTH TWICE A DAY No Brilinta 90 mg tablet TAKE 1 TABLET BY MOUTH TWICE A DAY [facility] Lipitor 40 MG Lipitor 40 MG No 1{table t} QD Lipitor 40 MG Sotalol HCl 80 MG Sotalol HCl 80 MG No 1{table t} BID Sotalol HCl 80 MG hydroCHLORO thiazide 12.5 MG hydroCHLORO thiazide 12.5 MG No 1{capsu le_in_t he_morn ing} QD hydroCHLOR Othiazide 12.5 MG Co Q 10 100 MG Co Q 10 100 MG No Co Q 10 100 MG Brilinta 90 MG Brilinta 90 MG No 1{table t} BID Brilinta 90 MG Fenofibrate 145 MG Fenofibrate 145 MG No 1{table t} QD Fenofibrat e 145 MG Glimepiride 1 MG Glimepiride 1 MG No 1{table t_with_ breakfa st_or_t he_firs t_main_ meal_of _the_da y} QD Glimepirid e 1 MG Aspirin 81 81 MG Aspirin 81 81 MG No 1{table t} QD Aspirin 81 81 MG Gabapentin 300 MG Gabapentin 300 MG No Gabapentin 300 MG Omeprazole 20 MG Omeprazole 20 MG No Omeprazole 20 MG Multivitami n Adult - Multivitami n Adult - No 1{table t} QD Multivitam in Adult - Telmisartan 80 MG Telmisartan 80 MG No 1{table t} QD Telmisarta n 80 MG Tadalafil 5 MG Tadalafil 5 MG No 1{table t_as_ne eded} QD Tadalafil 5 MG B12 5000 MCG B12 5000 MCG No B12 5000 MCG Lipitor 40 MG Lipitor 40 MG No 1{table t} QD Lipitor 40 MG Sotalol HCl 80 MG Sotalol HCl 80 MG No 1{table t} BID Sotalol HCl 80 MG hydroCHLORO thiazide 12.5 MG hydroCHLORO thiazide 12.5 MG No 1{capsu le_in_t he_morn ing} QD hydroCHLOR Othiazide 12.5 MG Co Q 10 100 MG Co Q 10 100 MG No Co Q 10 100 MG Brilinta 90 MG Brilinta 90 MG No 1{table t} BID Brilinta 90 MG Fenofibrate 145 MG Fenofibrate 145 MG No 1{table t} QD Fenofibrat e 145 MG Glimepiride 1 MG Glimepiride 1 MG No 1{table t_with_ breakfa st_or_t he_firs t_main_ meal_of _the_da y} QD Glimepirid e 1 MG Aspirin 81 81 MG Aspirin 81 81 MG No 1{table t} QD Aspirin 81 81 MG Gabapentin 300 MG Gabapentin 300 MG No Gabapentin 300 MG Omeprazole 20 MG Omeprazole 20 MG No Omeprazole 20 MG Multivitami n Adult - Multivitami n Adult - No 1{table t} QD Multivitam in Adult - Telmisartan 80 MG Telmisartan 80 MG No 1{table t} QD Telmisarta n 80 MG Tadalafil 5 MG Tadalafil 5 MG No 1{table t_as_ne eded} QD Tadalafil 5 MG B12 5000 MCG B12 5000 MCG No B12 5000 MCG Lipitor 40 MG Lipitor 40 MG No 1{table t} QD Lipitor 40 MG Sotalol HCl 80 MG Sotalol HCl 80 MG No 1{table t} BID Sotalol HCl 80 MG ciprofloxac in 500 mg tablet TAKE 1 TABLET BY MOUTH TWICE A DAY FOR 3 DAYS STARTING TODAY ciprofloxac in 500 mg tablet TAKE 1 TABLET BY MOUTH TWICE A DAY FOR 3 DAYS STARTING TODAY No ciprofloxa priya 500 mg tablet TAKE 1 TABLET BY MOUTH TWICE A DAY FOR 3 DAYS STARTING TODAY [facility] hydroCHLORO thiazide 12.5 MG hydroCHLORO thiazide 12.5 MG No 1{capsu le_in_t he_morn ing} QD hydroCHLOR Othiazide 12.5 MG Co Q 10 100 MG Co Q 10 100 MG No Co Q 10 100 MG Brilinta 90 MG Brilinta 90 MG No 1{table t} BID Brilinta 90 MG Fenofibrate 145 MG Fenofibrate 145 MG No 1{table t} QD Fenofibrat e 145 MG Glimepiride 1 MG Glimepiride 1 MG No 1{table t_with_ breakfa st_or_t he_firs t_main_ meal_of _the_da y} QD Glimepirid e 1 MG Gabapentin 300 MG Gabapentin 300 MG No 1{capsu le} BID Gabapentin 300 MG Aspirin 81 81 MG Aspirin 81 81 MG No 1{table t} QD Aspirin 81 81 MG Gabapentin 300 MG Gabapentin 300 MG No Gabapentin 300 MG Omeprazole 20 MG Omeprazole 20 MG No Omeprazole 20 MG Multivitami n Adult - Multivitami n Adult - No 1{table t} QD Multivitam in Adult - fenofibrate nanocrystal lized 145 mg tablet fenofibrate nanocrystal lized 145 mg tablet No fenofibrat e nanocrysta llized 145 mg tablet [facility] Telmisartan 80 MG Telmisartan 80 MG No 1{table t} QD Telmisarta n 80 MG Tadalafil 5 MG Tadalafil 5 MG No 1{table t_as_ne eded} QD Tadalafil 5 MG B12 5000 MCG B12 5000 MCG No B12 5000 MCG Lipitor 40 MG Lipitor 40 MG No 1{table t} QD Lipitor 40 MG amLODIPine Besylate 10 MG amLODIPine Besylate 10 MG No 1{table t} QD amLODIPine Besylate 10 MG Sotalol HCl 80 MG Sotalol HCl 80 MG No 1{table t} BID Sotalol HCl 80 MG hydroCHLORO thiazide 12.5 MG hydroCHLORO thiazide 12.5 MG No 1{capsu le_in_t he_morn ing} QD hydroCHLOR Othiazide 12.5 MG Co Q 10 100 MG Co Q 10 100 MG No Co Q 10 100 MG Brilinta 90 MG Brilinta 90 MG No 1{table t} BID Brilinta 90 MG Fenofibrate 145 MG Fenofibrate 145 MG No 1{table t} QD Fenofibrat e 145 MG Glimepiride 1 MG Glimepiride 1 MG No 1{table t_with_ breakfa st_or_t he_firs t_main_ meal_of _the_da y} QD Glimepirid e 1 MG Cialis 20 MG Cialis 20 MG No 1{table t} Cialis 20 MG Aspirin 81 81 MG Aspirin 81 81 MG No 1{table t} QD Aspirin 81 81 MG Gabapentin 300 MG Gabapentin 300 MG No Gabapentin 300 MG Telmisartan 80 MG Telmisartan 80 MG No 1{table t} QD Telmisarta n 80 MG Omeprazole 20 MG Omeprazole 20 MG No Omeprazole 20 MG Multivitami n Adult - Multivitami n Adult - No 1{table t} QD Multivitam in Adult - Telmisartan 80 MG Telmisartan 80 MG No 1{table t} QD Telmisarta n 80 MG Tadalafil 5 MG Tadalafil 5 MG No 1{table t_as_ne eded} QD Tadalafil 5 MG B12 5000 MCG B12 5000 MCG No B12 5000 MCG gabapentin 300 mg capsule TAKE 1 CAPSULE BY MOUTH TWICE A DAY gabapentin 300 mg capsule TAKE 1 CAPSULE BY MOUTH TWICE A DAY No gabapentin 300 mg capsule TAKE 1 CAPSULE BY MOUTH TWICE A DAY [facility] Lipitor 40 MG Lipitor 40 MG No 1{table t} QD Lipitor 40 MG Sotalol HCl 80 MG Sotalol HCl 80 MG No 1{table t} BID Sotalol HCl 80 MG hydroCHLORO thiazide 12.5 MG hydroCHLORO thiazide 12.5 MG No 1{capsu le_in_t he_morn ing} QD hydroCHLOR Othiazide 12.5 MG Co Q 10 100 MG Co Q 10 100 MG No Co Q 10 100 MG Brilinta 90 MG Brilinta 90 MG No 1{table t} BID Brilinta 90 MG Fenofibrate 145 MG Fenofibrate 145 MG No 1{table t} QD Fenofibrat e 145 MG Fenofibrate 145 MG Fenofibrate 145 MG No 1{table t} QD Fenofibrat e 145 MG Glimepiride 1 MG Glimepiride 1 MG No 1{table t_with_ breakfa st_or_t he_firs t_main_ meal_of _the_da y} QD Glimepirid e 1 MG Aspirin 81 81 MG Aspirin 81 81 MG No 1{table t} QD Aspirin 81 81 MG Gabapentin 300 MG Gabapentin 300 MG No Gabapentin 300 MG Multivitami n Adult - Multivitami n Adult - No 1{table t} QD Multivitam in Adult - Omeprazole 20 MG Omeprazole 20 MG No Omeprazole 20 MG Multivitami n Adult - Multivitami n Adult - No 1{table t} QD Multivitam in Adult - Telmisartan 80 MG Telmisartan 80 MG No 1{table t} QD Telmisarta n 80 MG Tadalafil 5 MG Tadalafil 5 MG No 1{table t_as_ne eded} QD Tadalafil 5 MG B12 5000 MCG B12 5000 MCG No B12 5000 MCG Lipitor 40 MG Lipitor 40 MG No 1{table t} QD Lipitor 40 MG Sotalol HCl 80 MG Sotalol HCl 80 MG No 1{table t} BID Sotalol HCl 80 MG hydroCHLORO thiazide 12.5 MG hydroCHLORO thiazide 12.5 MG No 1{capsu le_in_t he_morn ing} QD hydroCHLOR Othiazide 12.5 MG Co Q 10 100 MG Co Q 10 100 MG No Co Q 10 100 MG Brilinta 90 MG Brilinta 90 MG No 1{table t} BID Brilinta 90 MG Glimepiride 1 MG Glimepiride 1 MG No 1{table t_with_ breakfa st_or_t he_firs t_main_ meal_of _the_da y} QD Glimepirid e 1 MG Fenofibrate 145 MG Fenofibrate 145 MG No 1{table t} QD Fenofibrat e 145 MG Glimepiride 1 MG Glimepiride 1 MG No 1{table t_with_ breakfa st_or_t he_firs t_main_ meal_of _the_da y} QD Glimepirid e 1 MG hydroCHLORO thiazide 12.5 MG hydroCHLORO thiazide 12.5 MG No 1{capsu le_in_t he_morn ing} QD hydroCHLOR Othiazide 12.5 MG B12 5000 MCG B12 5000 MCG No B12 5000 MCG Aspirin 81 81 MG Aspirin 81 81 MG No 1{table t} QD Aspirin 81 81 MG Tadalafil 5 MG Tadalafil 5 MG No 1{table t_as_ne eded} QD Tadalafil 5 MG Sotalol HCl 80 MG Sotalol HCl 80 MG No 1{table t} BID Sotalol HCl 80 MG Glimepiride 1 MG Glimepiride 1 MG No 1{table t_with_ breakfa st_or_t he_firs t_main_ meal_of _the_da y} QD Glimepirid e 1 MG glimepiride 1 mg tablet TAKE 1 TABLET BY MOUTH EVERY DAY WITH BREAKFAST OR THE FIRST MAIN MEAL OF THE DAY FOR 90 DAYS glimepiride 1 mg tablet TAKE 1 TABLET BY MOUTH EVERY DAY WITH BREAKFAST OR THE FIRST MAIN MEAL OF THE DAY FOR 90 DAYS No glimepirid e 1 mg tablet TAKE 1 TABLET BY MOUTH EVERY DAY WITH BREAKFAST OR THE FIRST MAIN MEAL OF THE DAY FOR 90 DAYS [facility] hydroCHLORO thiazide 12.5 MG hydroCHLORO thiazide 12.5 MG No hydroCHLOR Othiazide 12.5 MG Brilinta 90 MG Brilinta 90 MG No 1{table t} BID Brilinta 90 MG Omeprazole 20 MG Omeprazole 20 MG No Omeprazole 20 MG Gabapentin 300 MG Gabapentin 300 MG No TID Gabapentin 300 MG Fenofibrate 145 MG Fenofibrate 145 MG No 1{table t} QD Fenofibrat e 145 MG Co Q 10 100 MG Co Q 10 100 MG No Co Q 10 100 MG Telmisartan 80 MG Telmisartan 80 MG No 1{table t} QD Telmisarta n 80 MG Lipitor 40 MG Lipitor 40 MG No 1{table t} QD Lipitor 40 MG Sotalol HCl 80 MG Sotalol HCl 80 MG No 1{table t} BID Sotalol HCl 80 MG Simvastatin 80 MG Simvastatin 80 MG No 1{table t_in e_eveni ng} QD Simvastati n 80 MG Multivitami n Adult - Multivitami n Adult - No 1{table t} QD Multivitam in Adult - B12 5000 MCG B12 5000 MCG No B12 5000 MCG Aspirin 81 81 MG Aspirin 81 81 MG No 1{table t} QD Aspirin 81 81 MG Tadalafil 5 MG Tadalafil 5 MG No 1{table t_as_ne eded} QD Tadalafil 5 MG Glimepiride 1 MG Glimepiride 1 MG No 1{table t_with_ breakfa st_or_t he_firs t_main_ meal_of _the_da y} QD Glimepirid e 1 MG hydroCHLORO thiazide 12.5 MG hydroCHLORO thiazide 12.5 MG No hydroCHLOR Othiazide 12.5 MG Brilinta 90 MG Brilinta 90 MG No 1{table t} BID Brilinta 90 MG Omeprazole 20 MG Omeprazole 20 MG No Omeprazole 20 MG Gabapentin 300 MG Gabapentin 300 MG No TID Gabapentin 300 MG Fenofibrate 145 MG Fenofibrate 145 MG No 1{table t} QD Fenofibrat e 145 MG hydrochloro thiazide 12.5 mg capsule TAKE 1 CAPSULE BY MOUTH EVERY DAY IN THE MORNING FOR 90 DAYS hydrochloro thiazide 12.5 mg capsule TAKE 1 CAPSULE BY MOUTH EVERY DAY IN THE MORNING FOR 90 DAYS No hydrochlor othiazide 12.5 mg capsule TAKE 1 CAPSULE BY MOUTH EVERY DAY IN THE MORNING FOR 90 DAYS [facility] Co Q 10 100 MG Co Q 10 100 MG No Co Q 10 100 MG Telmisartan 80 MG Telmisartan 80 MG No 1{table t} QD Telmisarta n 80 MG Lipitor 40 MG Lipitor 40 MG No 1{table t} QD Lipitor 40 MG Sotalol HCl 80 MG Sotalol HCl 80 MG No 1{table t} BID Sotalol HCl 80 MG Multivitami n Adult - Multivitami n Adult - No 1{table t} QD Multivitam in Adult - B12 5000 MCG B12 5000 MCG No B12 5000 MCG Aspirin 81 81 MG Aspirin 81 81 MG No 1{table t} QD Aspirin 81 81 MG Tadalafil 5 MG Tadalafil 5 MG No 1{table t_as_ne eded} QD Tadalafil 5 MG Glimepiride 1 MG Glimepiride 1 MG No 1{table t_with_ breakfa st_or_t he_firs t_main_ meal_of _the_da y} QD Glimepirid e 1 MG hydroCHLORO thiazide 12.5 MG hydroCHLORO thiazide 12.5 MG No hydroCHLOR Othiazide 12.5 MG Brilinta 90 MG Brilinta 90 MG No 1{table t} BID Brilinta 90 MG Omeprazole 20 MG Omeprazole 20 MG No Omeprazole 20 MG Gabapentin 300 MG Gabapentin 300 MG No TID Gabapentin 300 MG Fenofibrate 145 MG Fenofibrate 145 MG No 1{table t} QD Fenofibrat e 145 MG Co Q 10 100 MG Co Q 10 100 MG No Co Q 10 100 MG Telmisartan 80 MG Telmisartan 80 MG No 1{table t} QD Telmisarta n 80 MG Lipitor 40 MG Lipitor 40 MG No 1{table t} QD Lipitor 40 MG Sotalol HCl 80 MG Sotalol HCl 80 MG No 1{table t} BID Sotalol HCl 80 MG Multivitami n Adult - Multivitami n Adult - No 1{table t} QD Multivitam in Adult - B12 5000 MCG B12 5000 MCG No B12 5000 MCG Aspirin 81 81 MG Aspirin 81 81 MG No 1{table t} QD Aspirin 81 81 MG Tadalafil 5 MG Tadalafil 5 MG No 1{table t_as_ne eded} QD Tadalafil 5 MG Glimepiride 1 MG Glimepiride 1 MG No 1{table t_with_ breakfa st_or_t he_firs t_main_ meal_of _the_da y} QD Glimepirid e 1 MG hydroCHLORO thiazide 12.5 MG hydroCHLORO thiazide 12.5 MG No hydroCHLOR Othiazide 12.5 MG Brilinta 90 MG Brilinta 90 MG No 1{table t} BID Brilinta 90 MG Omeprazole 20 MG Omeprazole 20 MG No Omeprazole 20 MG Gabapentin 300 MG Gabapentin 300 MG No TID Gabapentin 300 MG Fenofibrate 145 MG Fenofibrate 145 MG No 1{table t} QD Fenofibrat e 145 MG Co Q 10 100 MG Co Q 10 100 MG No Co Q 10 100 MG Telmisartan 80 MG Telmisartan 80 MG No 1{table t} QD Telmisarta n 80 MG hydrochloro thiazide 12.5 mg tablet TAKE 1 TABLET BY MOUTH EVERY DAY hydrochloro thiazide 12.5 mg tablet TAKE 1 TABLET BY MOUTH EVERY DAY No hydrochlor othiazide 12.5 mg tablet TAKE 1 TABLET BY MOUTH EVERY DAY [facility] Lipitor 40 MG Lipitor 40 MG No 1{table t} QD Lipitor 40 MG Sotalol HCl 80 MG Sotalol HCl 80 MG No 1{table t} BID Sotalol HCl 80 MG Multivitami n Adult - Multivitami n Adult - No 1{table t} QD Multivitam in Adult - B12 5000 MCG B12 5000 MCG No B12 5000 MCG Aspirin 81 81 MG Aspirin 81 81 MG No 1{table t} QD Aspirin 81 81 MG Tadalafil 5 MG Tadalafil 5 MG No 1{table t_as_ne eded} QD Tadalafil 5 MG Glimepiride 1 MG Glimepiride 1 MG No 1{table t_with_ breakfa st_or_t he_firs t_main_ meal_of _the_da y} QD Glimepirid e 1 MG hydroCHLORO thiazide 12.5 MG hydroCHLORO thiazide 12.5 MG No hydroCHLOR Othiazide 12.5 MG Brilinta 90 MG Brilinta 90 MG No 1{table t} BID Brilinta 90 MG Omeprazole 20 MG Omeprazole 20 MG No Omeprazole 20 MG isosorbide mononitrate ER 30 mg tablet,exte nded release 24 hr TAKE 1 TABLET BY MOUTH EVERY DAY IN THE MORNING isosorbide mononitrate ER 30 mg tablet,exte nded release 24 hr TAKE 1 TABLET BY MOUTH EVERY DAY IN THE MORNING No isosorbide mononitrat e ER 30 mg tablet,ext ended release 24 hr TAKE 1 TABLET BY MOUTH EVERY DAY IN THE MORNING [facility] Gabapentin 300 MG Gabapentin 300 MG No TID Gabapentin 300 MG Fenofibrate 145 MG Fenofibrate 145 MG No 1{table t} QD Fenofibrat e 145 MG Co Q 10 100 MG Co Q 10 100 MG No Co Q 10 100 MG Telmisartan 80 MG Telmisartan 80 MG No 1{table t} QD Telmisarta n 80 MG Lipitor 40 MG Lipitor 40 MG No 1{table t} QD Lipitor 40 MG Sotalol HCl 80 MG Sotalol HCl 80 MG No 1{table t} BID Sotalol HCl 80 MG Multivitami n Adult - Multivitami n Adult - No 1{table t} QD Multivitam in Adult - B12 5000 MCG B12 5000 MCG No B12 5000 MCG Aspirin 81 81 MG Aspirin 81 81 MG No 1{table t} QD Aspirin 81 81 MG Tadalafil 5 MG Tadalafil 5 MG No 1{table t_as_ne eded} QD Tadalafil 5 MG Glimepiride 1 MG Glimepiride 1 MG No 1{table t_with_ breakfa st_or_t he_firs t_main_ meal_of _the_da y} QD Glimepirid e 1 MG hydroCHLORO thiazide 12.5 MG hydroCHLORO thiazide 12.5 MG No hydroCHLOR Othiazide 12.5 MG Brilinta 90 MG Brilinta 90 MG No 1{table t} BID Brilinta 90 MG Omeprazole 20 MG Omeprazole 20 MG No Omeprazole 20 MG Gabapentin 300 MG Gabapentin 300 MG No TID Gabapentin 300 MG Fenofibrate 145 MG Fenofibrate 145 MG No 1{table t} QD Fenofibrat e 145 MG Co Q 10 100 MG Co Q 10 100 MG No Co Q 10 100 MG Telmisartan 80 MG Telmisartan 80 MG No 1{table t} QD Telmisarta n 80 MG Lipitor 40 MG Lipitor 40 MG No 1{table t} QD Lipitor 40 MG Sotalol HCl 80 MG Sotalol HCl 80 MG No 1{table t} BID Sotalol HCl 80 MG simvastatin 80 mg tablet simvastatin 80 mg tablet No simvastati n 80 mg tablet [facility] Multivitami n Adult - Multivitami n Adult - No 1{table t} QD Multivitam in Adult - B12 5000 MCG B12 5000 MCG No B12 5000 MCG Aspirin 81 81 MG Aspirin 81 81 MG No 1{table t} QD Aspirin 81 81 MG Tadalafil 5 MG Tadalafil 5 MG No 1{table t_as_ne eded} QD Tadalafil 5 MG Glimepiride 1 MG Glimepiride 1 MG No 1{table t_with_ breakfa st_or_t he_firs t_main_ meal_of _the_da y} QD Glimepirid e 1 MG hydroCHLORO thiazide 12.5 MG hydroCHLORO thiazide 12.5 MG No hydroCHLOR Othiazide 12.5 MG Brilinta 90 MG Brilinta 90 MG No 1{table t} BID Brilinta 90 MG Omeprazole 20 MG Omeprazole 20 MG No Omeprazole 20 MG Gabapentin 300 MG Gabapentin 300 MG No TID Gabapentin 300 MG Fenofibrate 145 MG Fenofibrate 145 MG No 1{table t} QD Fenofibrat e 145 MG sotalol 80 mg tablet sotalol 80 mg tablet No sotalol 80 mg tablet [facility] Co Q 10 100 MG Co Q 10 100 MG No Co Q 10 100 MG Telmisartan 80 MG Telmisartan 80 MG No 1{table t} QD Telmisarta n 80 MG Lipitor 40 MG Lipitor 40 MG No 1{table t} QD Lipitor 40 MG Sotalol HCl 80 MG Sotalol HCl 80 MG No 1{table t} BID Sotalol HCl 80 MG Multivitami n Adult - Multivitami n Adult - No 1{table t} QD Multivitam in Adult - Omeprazole 20 MG Omeprazole 20 MG No Omeprazole 20 MG Gabapentin 300 MG Gabapentin 300 MG No TID Gabapentin 300 MG Tadalafil 5 MG Tadalafil 5 MG No 1{table t_as_ne eded} QD Tadalafil 5 MG Aspirin 81 81 MG Aspirin 81 81 MG No 1{table t} QD Aspirin 81 81 MG hydroCHLORO thiazide 12.5 MG hydroCHLORO thiazide 12.5 MG No hydroCHLOR Othiazide 12.5 MG Telmisartan 80 MG Telmisartan 80 MG No 1{table t} QD Telmisarta n 80 MG Brilinta 90 MG Brilinta 90 MG No 1{table t} BID Brilinta 90 MG Sotalol HCl 80 MG Sotalol HCl 80 MG No 1{table t} BID Sotalol HCl 80 MG Multivitami n Adult - Multivitami n Adult - No 1{table t} QD Multivitam in Adult - B12 5000 MCG B12 5000 MCG No B12 5000 MCG Fenofibrate 145 MG Fenofibrate 145 MG No 1{table t} QD Fenofibrat e 145 MG Lipitor 40 MG Lipitor 40 MG No 1{table t} QD Lipitor 40 MG Co Q 10 100 MG Co Q 10 100 MG No Co Q 10 100 MG Glimepiride 1 MG Glimepiride 1 MG No Glimepirid e 1 MG hydroCHLORO thiazide 12.5 MG hydroCHLORO thiazide 12.5 MG No hydroCHLOR Othiazide 12.5 MG tadalafil 20 mg tablet TAKE 1 TABLET BY MOUTH ONCE DAILY NEEDED FOR 30 DAYS tadalafil 20 mg tablet TAKE 1 TABLET BY MOUTH ONCE DAILY NEEDED FOR 30 DAYS No tadalafil 20 mg tablet TAKE 1 TABLET BY MOUTH ONCE DAILY NEEDED FOR 30 DAYS [facility] Brilinta 90 MG Brilinta 90 MG No 1{table t} BID Brilinta 90 MG Simvastatin 80 MG Simvastatin 80 MG No 1{table t_in_th e_eveni ng} QD Simvastati n 80 MG Multivitami n Adult - Multivitami n Adult - No 1{table t} QD Multivitam in Adult - Co Q 10 100 MG Co Q 10 100 MG No Co Q 10 100 MG Omeprazole 20 MG Omeprazole 20 MG No Omeprazole 20 MG Fenofibrate 145 MG Fenofibrate 145 MG No 1{table t} QD Fenofibrat e 145 MG Telmisartan 80 MG Telmisartan 80 MG No 1{table t} QD Telmisarta n 80 MG Glimepiride 1 MG Glimepiride 1 MG No Glimepirid e 1 MG Gabapentin 300 MG Gabapentin 300 MG No TID Gabapentin 300 MG Tadalafil 5 MG Tadalafil 5 MG No 1{table t_as_ne eded} QD Tadalafil 5 MG Aspirin 81 81 MG Aspirin 81 81 MG No 1{table t} QD Aspirin 81 81 MG B12 5000 MCG B12 5000 MCG No B12 5000 MCG Fenofibrate 145 MG Fenofibrate 145 MG No 1{table t} QD Fenofibrat e 145 MG Lipitor 40 MG Lipitor 40 MG No 1{table t} QD Lipitor 40 MG Sotalol HCl 80 MG Sotalol HCl 80 MG No 1{table t} BID Sotalol HCl 80 MG Sotalol HCl 80 MG Sotalol HCl 80 MG No 1{table t} BID Sotalol HCl 80 MG hydroCHLORO thiazide 12.5 MG hydroCHLORO thiazide 12.5 MG No hydroCHLOR Othiazide 12.5 MG Brilinta 90 MG Brilinta 90 MG No 1{table t} BID Brilinta 90 MG Multivitami n Adult - Multivitami n Adult - No 1{table t} QD Multivitam in Adult - Co Q 10 100 MG Co Q 10 100 MG No Co Q 10 100 MG tadalafil 5 mg tablet TAKE 1 TABLET BY MOUTH ONCE DAILY tadalafil 5 mg tablet TAKE 1 TABLET BY MOUTH ONCE DAILY No tadalafil 5 mg tablet TAKE 1 TABLET BY MOUTH ONCE DAILY [facility] Omeprazole 20 MG Omeprazole 20 MG No Omeprazole 20 MG Cialis 20 MG Cialis 20 MG No 1{table t} Cialis 20 MG Fenofibrate 145 MG Fenofibrate 145 MG No 1{table t} QD Fenofibrat e 145 MG Telmisartan 80 MG Telmisartan 80 MG No 1{table t} QD Telmisarta n 80 MG Glimepiride 1 MG Glimepiride 1 MG No Glimepirid e 1 MG Gabapentin 300 MG Gabapentin 300 MG No TID Gabapentin 300 MG Tadalafil 5 MG Tadalafil 5 MG No 1{table t_as_ne eded} QD Tadalafil 5 MG Aspirin 81 81 MG Aspirin 81 81 MG No 1{table t} QD Aspirin 81 81 MG B12 5000 MCG B12 5000 MCG No B12 5000 MCG Lipitor 40 MG Lipitor 40 MG No 1{table t} QD Lipitor 40 MG tamsulosin 0.4 mg capsule TAKE 1 CAPSULE BY MOUTH EVERY DAY FOR 30 DAYS tamsulosin 0.4 mg capsule TAKE 1 CAPSULE BY MOUTH EVERY DAY FOR 30 DAYS No tamsulosin 0.4 mg capsule TAKE 1 CAPSULE BY MOUTH EVERY DAY FOR 30 DAYS [facility] Sotalol HCl 80 MG Sotalol HCl 80 MG No 1{table t} BID Sotalol HCl 80 MG Telmisartan 80 MG Telmisartan 80 MG No 1{table t} QD Telmisarta n 80 MG amLODIPine Besylate 10 MG amLODIPine Besylate 10 MG No 1{table t} QD amLODIPine Besylate 10 MG hydroCHLORO thiazide 12.5 MG hydroCHLORO thiazide 12.5 MG No 1{capsu le_in_t he_morn ing} QD hydroCHLOR Othiazide 12.5 MG Gabapentin 300 MG Gabapentin 300 MG No 1{capsu le} QD Gabapentin 300 MG Glimepiride 1 MG Glimepiride 1 MG No 1{table t_with_ breakfa st_or_t he_firs t_main_ meal_of _the_da y} QD Glimepirid e 1 MG Simvastatin 80 MG Simvastatin 80 MG No 1{table t_in_ e_eveni ng} QD Simvastati n 80 MG Simvastatin 80 MG Simvastatin 80 MG No 1{table t_in e_eveni ng} QD Simvastati n 80 MG telmisartan 80 mg tablet telmisartan 80 mg tablet No telmisarta n 80 mg tablet [facility] amlodipine 10 mg tablet TAKE 1 TABLET BY MOUTH EVERY DAY amlodipine 10 mg tablet TAKE 1 TABLET BY MOUTH EVERY DAY No amlodipine 10 mg tablet TAKE 1 TABLET BY MOUTH EVERY DAY [facility] atorvastati n 40 mg tablet TAKE 1 TABLET BY MOUTH EVERYDAY AT BEDTIME atorvastati n 40 mg tablet TAKE 1 TABLET BY MOUTH EVERYDAY AT BEDTIME No atorvastat in 40 mg tablet TAKE 1 TABLET BY MOUTH EVERYDAY AT BEDTIME [facility] Immunizations Ordered Immunization Name Filled Immunization Name Date Status Comments Source Prevnar 20 (PCV20) Prevnar 20 (PCV20) 2021-12-02 09:04:00 Completed [facility] Prevnar 20 (PCV20) Prevnar 20 (PCV20) 2021-12-02 09:04:00 Completed [facility] Prevnar 20 (PCV20) Prevnar 20 (PCV20) 2021-12-02 09:04:00 Completed [facility] Prevnar 20 (PCV20) Prevnar 20 (PCV20) Unknown Completed [facility] Prevnar 20 (PCV20) Prevnar 20 (PCV20) Unknown Completed [facility] Prevnar 20 (PCV20) Prevnar 20 (PCV20) Unknown Completed [facility] Prevnar 20 (PCV20) Prevnar 20 (PCV20) Unknown Completed [facility] Prevnar 20 (PCV20) Prevnar 20 (PCV20) Unknown Completed [facility] Prevnar 20 (PCV20) Prevnar 20 (PCV20) Unknown Completed [facility] Prevnar 20 (PCV20) Prevnar 20 (PCV20) Unknown Completed [facility] Prevnar 20 (PCV20) Prevnar 20 (PCV20) Unknown Completed [facility] [employer] COVID-19 Vaccine, Bivalent [employer] COVID-19 Vaccine, Bivalent Unknown Completed [facility] Prevnar 20 (PCV20) Prevnar 20 (PCV20) Unknown Completed [facility] [employer] COVID-19 Vaccine, Bivalent [employer] COVID-19 Vaccine, Bivalent Unknown Completed [facility] Prevnar 20 (PCV20) Prevnar 20 (PCV20) Unknown Completed [facility] [employer] COVID-19 Vaccine, Bivalent [employer] COVID-19 Vaccine, Bivalent Unknown Completed [facility] Prevnar 20 (PCV20) Prevnar 20 (PCV20) Unknown Completed [facility] [employer] COVID-19 Vaccine, Bivalent [employer] COVID-19 Vaccine, Bivalent Unknown Completed [facility] Prevnar 20 (PCV20) Prevnar 20 (PCV20) Unknown Completed [facility] [employer] COVID-19 Vaccine, Bivalent [employer] COVID-19 Vaccine, Bivalent Unknown Completed [facility] Prevnar 20 (PCV20) Prevnar 20 (PCV20) Unknown Completed [facility] [employer] COVID-19 Vaccine, Bivalent [employer] COVID-19 Vaccine, Bivalent Unknown Completed [facility] Prevnar 20 (PCV20) Prevnar 20 (PCV20) Unknown Completed [facility] [employer] COVID-19 Vaccine, Bivalent [employer] COVID-19 Vaccine, Bivalent Unknown Completed [facility] Prevnar 20 (PCV20) Prevnar 20 (PCV20) Unknown Completed [facility] [employer] COVID-19 Vaccine, Bivalent [employer] COVID-19 Vaccine, Bivalent Unknown Completed [facility] Prevnar 20 (PCV20) Prevnar 20 (PCV20) Unknown Completed [facility] [employer] COVID-19 Vaccine, Bivalent [employer] COVID-19 Vaccine, Bivalent Unknown Completed [facility] Prevnar 20 (PCV20) Prevnar 20 (PCV20) Unknown Completed [facility] [employer] COVID-19 Vaccine, Bivalent [employer] COVID-19 Vaccine, Bivalent Unknown Completed [facility] Prevnar 20 (PCV20) Prevnar 20 (PCV20) Unknown Completed [facility] Vital Signs Vital Name Observation Time Observation Value Comments S ource height 2023-04-22 14:00:00 70 [in_i] Commo n [facility] weight 2023-04-22 14:00:00 212.8 [lb_av] Co mmon [facility] temperature 2023-04-22 14:00:00 98.1 [degF] Com mon [facility] bmi 2023-04-22 14:00:00 30.53 kg/m2 Comm [facility] oximetry 2023-04-22 14:00:00 99 % [facility] respiratory rate 2023-04-22 14:00:00 15 /min [facility] blood pressure systolic 2023-04-22 14:00:00 138 mm[Hg] [facility] blood pressure diastolic 2023-04-22 14:00:00 75 mm[Hg] [facility] BMI (Body Mass Index) 2023-04-19 00:00:00 31.5 kg/m2 [facility] BP Diastolic 2023-04-19 00:00:00 76 mm[Hg] [facility] Body Weight 2023-04-19 00:00:00 201 [lb_av] [facility] Height 2023-04-19 00:00:00 67 [in_i] [place] Systolic 2023-04-19 00:00:00 127 mm[Hg] [facility] height 2023-02-25 14:20:00 70 [in_i] Commo n [facility] weight 2023-02-25 14:20:00 208.4 [lb_av] Co mmon [facility] temperature 2023-02-25 14:20:00 97.9 [degF] Com mon [facility] bmi 2023-02-25 14:20:00 29.9 kg/m2 Commo n [facility] oximetry 2023-02-25 14:20:00 95 % Commo n [facility] respiratory rate 2023-02-25 14:20:00 15 /min Common [facility] blood pressure systolic 2023-02-25 14:20:00 128 mm[Hg] Common [facility] blood pressure diastolic 2023-02-25 14:20:00 69 mm[Hg] Common [facility] height 2022-12-23 15:15:00 70 [in_i] Commo n [facility] weight 2022-12-23 15:15:00 207.6 [lb_av] Co mmon [facility] temperature 2022-12-23 15:15:00 97.3 [degF] Com [facility] bmi 2022-12-23 15:15:00 29.78 kg/m2 Comm on [facility] oximetry 2022-12-23 15:15:00 99 % Commo n [facility] respiratory rate 2022-12-23 15:15:00 18 /min Common [facility] blood pressure systolic 2022-12-23 15:15:00 132 mm[Hg] [facility] blood pressure diastolic 2022-12-23 15:15:00 68 mm[Hg] [facility] Height 2022-12-14 00:00:00 67 [in_i] [place] [facility] Height 2022-12-08 00:00:00 67 [in_i] [place] [facility] BMI (Body Mass Index) 2022-12-08 00:00:00 32.4 kg/m2 [facility] Body Weight 2022-12-08 00:00:00 207 [lb_av] [facility] Systolic 2022-12-08 00:00:00 137 mm[Hg] Shawn [facility] BP Diastolic 2022-12-08 00:00:00 80 mm[Hg] Piedad colette [facility] height 2022-10-27 14:40:00 70 [in_i] Commo n [facility] weight 2022-10-27 14:40:00 205.2 [lb_av] Co [facility] temperature 2022-10-27 14:40:00 98.1 [degF] Com [facility] bmi 2022-10-27 14:40:00 29.44 kg/m2 Comm on [facility] oximetry 2022-10-27 14:40:00 95 % Commo n [facility] respiratory rate 2022-10-27 14:40:00 15 /min [facility] blood pressure systolic 2022-10-27 14:40:00 123 mm[Hg] [facility] blood pressure diastolic 2022-10-27 14:40:00 63 mm[Hg] [facility] height 2022-10-21 11:00:00 70 [in_i] Commo n [facility] weight 2022-10-21 11:00:00 204.6 [lb_av] Co [facility] temperature 2022-10-21 11:00:00 97.6 [degF] Com [facility] bmi 2022-10-21 11:00:00 29.35 kg/m2 Comm on [facility] oximetry 2022-10-21 11:00:00 99 % Commo n [facility] respiratory rate 2022-10-21 11:00:00 18 /min Common [facility] blood pressure systolic 2022-10-21 11:00:00 129 mm[Hg] [facility] blood pressure diastolic 2022-10-21 11:00:00 71 mm[Hg] [facility] height 2022-08-20 16:45:00 70 [in_i] Commo n [facility] weight 2022-08-20 16:45:00 208 [lb_av] Comm on [facility] temperature 2022-08-20 16:45:00 98.5 [degF] Com mon [facility] bmi 2022-08-20 16:45:00 29.84 kg/m2 Comm on [facility] oximetry 2022-08-20 16:45:00 92 % Commo n [facility] respiratory rate 2022-08-20 16:45:00 18 /min Common [facility] blood pressure systolic 2022-08-20 16:45:00 144 mm[Hg] [facility] blood pressure diastolic 2022-08-20 16:45:00 76 mm[Hg] [facility] [place] [place] oximetry 2022-07-13 11:00:00 98 % Commo n [facility] respiratory rate 2022-07-13 11:00:00 16 /min Common [facility] blood pressure systolic 2022-07-13 11:00:00 125 mm[Hg] [facility] blood pressure diastolic 2022-07-13 11:00:00 71 mm[Hg] [facility] height 2022-07-13 11:00:00 70 [in_i] Commo n [facility] weight 2022-07-13 11:00:00 209.0 [lb_av] Co mmon [facility] temperature 2022-07-13 11:00:00 98.4 [degF] Com mon [facility] bmi 2022-07-13 11:00:00 29.99 kg/m2 Comm on [facility] height 2022-07-13 10:20:00 70 [in_i] Commo n [facility] weight 2022-07-13 10:20:00 209.0 [lb_av] Co mmon [facility] temperature 2022-07-13 10:20:00 98.4 [degF] Com mon [facility] bmi 2022-07-13 10:20:00 29.99 kg/m2 Comm on [facility] oximetry 2022-07-13 10:20:00 98 % Commo n [facility] respiratory rate 2022-07-13 10:20:00 16 /min Common [facility] blood pressure systolic 2022-07-13 10:20:00 125 mm[Hg] [facility] blood pressure diastolic 2022-07-13 10:20:00 71 mm[Hg] Common [facility] height 2022-06-24 16:15:00 70 [in_i] Commo n [facility] weight 2022-06-24 16:15:00 211.6 [lb_av] Co mmon [facility] temperature 2022-06-24 16:15:00 98.1 [degF] Com mon [facility] bmi 2022-06-24 16:15:00 30.36 kg/m2 Comm on [facility] oximetry 2022-06-24 16:15:00 99 % Commo n [facility] respiratory rate 2022-06-24 16:15:00 16 /min Common [facility] blood pressure systolic 2022-06-24 16:15:00 131 mm[Hg] [facility] blood pressure diastolic 2022-06-24 16:15:00 64 mm[Hg] Common [facility] height 2022-06-19 09:30:00 70 [in_i] Commo n [facility] weight 2022-06-19 09:30:00 211 [lb_av] Comm on [facility] temperature 2022-06-19 09:30:00 97.6 [degF] Com mon [facility] bmi 2022-06-19 09:30:00 30.27 kg/m2 Comm on [facility] oximetry 2022-06-19 09:30:00 99 % Commo n [facility] respiratory rate 2022-06-19 09:30:00 18 /min Common [facility] blood pressure systolic 2022-06-19 09:30:00 120 mm[Hg] [facility] blood pressure diastolic 2022-06-19 09:30:00 59 mm[Hg] Common [facility] Height 2022-05-27 00:00:00 70 [in_i] [facility] BMI (Body Mass Index) 2022-05-27 00:00:00 30.8 kg/m2 [facility] Body Weight 2022-05-27 00:00:00 215 [lb_av] [facility]za [facility] height 2022-04-29 10:45:00 70 [in_i] Commo n [facility] weight 2022-04-29 10:45:00 212.8 [lb_av] Co mmon [facility] temperature 2022-04-29 10:45:00 98.0 [degF] Com mon [facility] bmi 2022-04-29 10:45:00 30.53 kg/m2 Comm on [facility] oximetry 2022-04-29 10:45:00 94 % Commo n [facility] respiratory rate 2022-04-29 10:45:00 18 /min [facility] blood pressure systolic 2022-04-29 10:45:00 127 mm[Hg] Common [facility] blood pressure diastolic 2022-04-29 10:45:00 59 mm[Hg] [facility] Height 2022-04-27 00:00:00 70 [in_i] [facility] BMI (Body Mass Index) 2022-04-27 00:00:00 30.8 kg/m2 [facility] Body Weight 2022-04-27 00:00:00 215 [lb_av] [facility] height 2022-01-07 11:20:00 Commo n [facility] weight 2022-01-07 11:20:00 222.0 [lb_av] Co mmon [facility] temperature 2022-01-07 11:20:00 97.1 [degF] Com mon [facility] bmi 2022-01-07 11:20:00 31.85 kg/m2 Comm on [facility] oximetry 2022-01-07 11:20:00 99 % [facility] respiratory rate 2022-01-07 11:20:00 16 /min [facility] blood pressure systolic 2022-01-07 11:20:00 124 mm[Hg] [facility] blood pressure diastolic 2022-01-07 11:20:00 66 mm[Hg] [facility] Body Weight 2022-01-05 00:00:00 215 [lb_av] [facility] BP Diastolic 2022-01-05 00:00:00 60 mm[Hg] [facility] Height 2022-01-05 00:00:00 70 [in_i] [facility] BMI (Body Mass Index) 2022-01-05 00:00:00 30.8 kg/m2 [facility] BP Systolic 2022-01-05 00:00:00 110 mm[Hg] [facility] height 2021-12-02 08:20:00 Commo n [facility] weight 2021-12-02 08:20:00 228.8 [lb_av] Co mmon [facility] temperature 2021-12-02 08:20:00 97.1 [degF] Com mon [facility] bmi 2021-12-02 08:20:00 32.83 kg/m2 Comm on [facility] oximetry 2021-12-02 08:20:00 97 % Commo n [facility] respiratory rate 2021-12-02 08:20:00 16 /min Common [facility] blood pressure systolic 2021-12-02 08:20:00 120 mm[Hg] [facility] blood pressure diastolic 2021-12-02 08:20:00 64 mm[Hg] [facility] Height 2021-11-11 00:00:00 70 [in_i] [facility] BMI (Body Mass Index) 2021-11-11 00:00:00 33.7 kg/m2 [facility] Body Weight 2021-11-11 00:00:00 235 [lb_av] Aza [facility] Height 2021-09-05 00:00:00 70 [in_i] [facility] BMI (Body Mass Index) 2021-09-05 00:00:00 33.7 kg/m2 [facility] Body Weight 2021-09-05 00:00:00 235 [lb_av] Aza [facility] height 2021-09-04 09:00:00 Commo n [facility] weight 2021-09-04 09:00:00 235.4 [lb_av] Co mmon [facility] temperature 2021-09-04 09:00:00 97.3 [degF] Com [facility] bmi 2021-09-04 09:00:00 33.77 kg/m2 Comm on [facility] oximetry 2021-09-04 09:00:00 96 % Commo n [facility] respiratory rate 2021-09-04 09:00:00 16 /min [facility] blood pressure systolic 2021-09-04 09:00:00 135 mm[Hg] [facility] blood pressure diastolic 2021-09-04 09:00:00 69 mm[Hg] Common [facility] Procedures Procedure Date / Time Performed Performing Clinician Source MRI, lumbar spine, w/o contrast 2023-01-27 00:00:00 [facility] PVR 2022-10-21 00:00:00 Common [facility] PVR 2022-08-20 00:00[facility]3 VIEWS 2022-05-27 00:00:00 [facility] RADEX SPI LUMBOSAC 2/3 VIEWS 2022-04-27 00:00:00 [facility] MRI, lumbar spine, w/o contrast 2022-04-10 00:00:00 [facility] Epidural Steroid Injection, Lumbar Transforaminal (Surg) 2021-12-15 00:00:00 [facility] SPECT, bone 2021-11-11 00:00:00 [facility] Colonoscopy 2020-05-23 00:00:00 [facility] Appendectomy [facility] Heart Stent [facility] Heart Surgery [facility] Shoulder Surgery [facility] Complete Repair of Rotator Cuff [facility] Circumcision [facility] Appendectomy [facility] Coronary Angioplasty [facility] Extraction of [place] Tooth [facility] Tonsillectomy [facility] Plan of Care Planned Activity Planned Date Details Comments Source Diagnostic Test Pending 2023-04-19 00:00:00 PSA, serum or plasma [code = PSA, serum or plasma] [facility] Diagnostic Test Pending 2023-04-19 00:00:00 testosterone, total, serum [code = testosterone, total, serum] [facility] Future Scheduled Test Advised to do strengthening exercise as he tolerates and follow proper body mechanics to have a better living [code = Advised to do strengthening exercise as he tolerates and follow proper body mechanics to have a bett] [facility] Instructions [facility] Encounters Start Date/Time End Date/Time Encounter Type Admission Type Attending Clinicians Care Facility Care Department Encounter ID Source 2023-02-25 14:21:00 Outpatient Afsaneh King [facility] [id number] [facility] 2022-03-02 13:07:02 Outpatient [facility] [id number] [facility] 2021-11-28 09:50:02 Outpatient Afsaneh King [facility] [id number] [facility] 2021-09-04 09:19:02 Outpatient Afsaneh King [facility] [id number] [facility] 2023-06-09 00:00:00 2023-06-09 00:00:00 Outpatient [facility] [id number] [facility] 2023-05-30 00:00:00 2023-05-30 00:00:00 Outpatient [facility] [id number] [facility] 2023-05-05 00:00:00 2023-05-05 00:00:00 Outpatient Van_T [id number] [facility] 2023-04-22 00:00:00 2023-04-22 00:00:00 OFFICE VISIT ESTAB PT LEVEL 4 [facility] [id number] [facility] 2023-04-21 00:00:00 2023-04-21 00:00:00 Outpatient Van_T [facility] [place] [id number] [facility] 2023-04-19 00:00:00 2023-04-19 00:00:00 Iraj Bo MD: [address] [place] [address] , Ph. [facility] - U [id number] [facility] 2023-04-18 00:00:00 2023-04-18 00:00:00 [facility]EL[facility] [id number] [facility] 2023-02-25 00:00:00 2023-02-25 00:00:00 OFFICE VISIT ESTAB PT LEVEL [address] [facility] [id number] [facility] 2023-02-02 00:00:00 2023-02-02 00:00:00 Hernandez Bridges MD: [address] [place], [place] [phone] , Ph. AO [place] [facility] - FOG_Telemed icine [id number] [facility] 2023-02-01 00:00:00 2023-02-01 00:00:00 Outpatient FOG_Cyrus Hassan AO AO [id number] [facility] 2023-02-01 00:00:00 2023-02-01 00:00:00 Outpatient FOG_Cyrus aHssan AO AO [id number] [facility] 2023-01-27 00:00:00 2023-01-27 00:00:00 [facility] [id number] [facility] 2023-01-27 00:00:00 2023-01-27 00:00:00 Hernandez Bridges MD: [address] [place] [phone] , Ph. [phone] [place] [facility] F[facility] [id number] [facility] 2023-01-13 00:00:00 2023-01-13 00:00:00 (TEL) [facility] [id number] [facility] 2022-12-24 00:00:00 2022-12-24 00:00:00 Outpatient Van_T [facility] [id number] [facility] 2022-12-23 00:00:00 2022-12-23 00:00:00 OFFICE VISIT ESTAB PT LEVEL [address] [facility] [id number] [facility] 2022-12-14 00:00:00 2022-12-14 00:00:00 Iraj Bo MD: [address] [place] [address] , Ph. U [facility] - [facility] [id number] [facility] 2022-12-08 00:00:00 2022-12-08 00:00:00 Outpatient Van_T [facility] [id number] [facility] 2022-12-08 00:00:00 2022-12-08 00:00:00 Outpatient Van_T [facility]U [id number] [facility] 2022-12-08 00:00:00 2022-12-08 00:00:00 Outpatient Van_T [facility]U [id number] [facility] 2022-12-08 00:00:00 2022-12-08 00:00:00 Outpatient Van_T [facility] [id number] [facility] 2022-12-08 00:00:00 2022-12-08 00:00:00 Outpatient Van_T [facility] [id number] [facility] 2022-12-08 00:00:00 2022-12-08 00:00:00 Outpatient Van_T [facility] [id number] [facility] 2022-12-08 00:00:00 2022-12-08 00:00:00 Outpatient Van_T [facility] [id number] [facility] 2022-12-08 00:00:00 2022-12-08 00:00:00 Outpatient Van_T [facility] [id number] [facility] 2022-12-08 00:00:00 2022-12-08 00:00:00 Outpatient Van_T [facility] [id number] [facility] 2022-12-08 00:00:00 2022-12-08 00:00:00 [facility] Hernandez Bo MD: [address] [place] [address] , Ph. [facility] - HMU [id number] [facility] 2022-12-02 00:00:00 2022-12-02 00:00:00 Outpatient Van_T [facility] [id number] [facility] 2022-12-01 00:00:00 2022-12-01 00:00:00 Outpatient Van[facility]T [facility] [id number] [facility] 2022-10-28 00:00:00 2022-10-28 00:00:00 (TEL) STLMLC ST[facility]C [id number] [facility] 2022-10-27 00:00:00 2022-10-27 00:00:00 OFFICE VISIT ESTAB PT LEVEL 4 STLMLC [facility]C [id number] [facility] 2022-10-27 00:00:00 2022-10-27 00:00:00 (TEL) STLMLC STLMLC [id number] [facility] 2022-10-21 00:00:00 2022-10-21 00:00:00 OFFICE VISIT ESTAB PT LEVEL 3 STLMLC STLMLC [id number] [facility] 2022-10-19 00:00:00 2022-10-19 00:00:00 Outpatient DARREN_Cyrus _Hernandez_ AOSM AOSM [id number] [facility] 2022-10-08 00:00:00 2022-10-08 00:00:00 (TEL) STLMLC STLMLC [id number] [facility] 2022-10-04 11:10:00 2022-10-04 11:51:00 Emergency EM GeorgefaviolaEnriquetaAlfredo [facility] [id number] [facility] 2022-09-29 05:44:00 2022-09-30 12:47:00 Inpatient Omid Santiago HCACL INTE.02 [id number] [facility] 2022-08-20 00:00:00 2022-08-20 00:00:00 OFFICE VISIT ESTAB PT LEVEL 4 STLMLC STLMLC [id number] [facility] 2022-08-11 00:00:00 2022-08-11 00:00:00 (TEL) STLMLC STLMLC [id number] [facility] 2022-07-13 00:00:00 2022-07-13 00:00:00 OFFICE VISIT ESTAB PT LEVEL 4 STLMLC STLMLC [id number] [facility] 2022-07-13 00:00:00 2022-07-13 00:00:00 SUB ANNUAL [facility] WELLNESS VISIT STLMLC STLMLC [id number] [facility] 2022-06-24 00:00:00 2022-06-24 00:00:00 OFFICE VISIT ESTAB PT LEVEL 4 STLMLC STLMLC [id number] [facility] 2022-06-19 00:00:00 2022-06-19 00:00:00 (PROC) Procedure STLMLC STLMLC [id number] [facility] 2022-05-27 00:00:00 2022-05-27 00:00:00 Outpatient DARREN[facility] [id number] [facility] 2022-05-27 00:00:00 2022-05-27 00:00:00 Humphrey Live MD: [address] [place] [phone] , Ph. [phone] [place] [facility] F[facility] [id number] [facility] 2022-05-16 00:00:00 2022-05-16 00:00:00 Outpatient Izabel [facility] [id number] [facility] 2022-05-16 00:00:00 2022-05-16 00:00:00 Outpatient FOG_Cyrus Hassan AO AO [id number] [facility] 2022-05-13 00:00:00 2022-05-13 00:00:00 (TEL) [facility] [id number] [facility] 2022-04-29 00:00:00 2022-04-29 00:00:00 OFFICE VISIT NEW PT LEVEL 4 [facility] [id number] [facility] 2022-04-27 00:00:00 2022-04-27 00:00:00 Outpatient FOG[facility]Cyrus [facility] [id number] [facility] 2022-04-27 00:00:00 2022-04-27 00:00:00 Humphrey Live MD: [address] [place] [phone] , [facility]. [phone] [facility] [id number] [facility] 2022-04-22 00:00:00 2022-04-22 00:00:00 Outpatient FOG[facility] [id number] [facility] 2022-04-17 00:00:00 2022-04-17 00:00:00 Hernandez Bridges MD: [address] [place] [phone] , [facility]. [facility] FOG_Telemed icine [id number] [facility] 2022-04-15 00:00:00 2022-04-15 00:00:00 Outpatient FOG[facility]yrus [facility] [id number] [facility] 2022-04-15 00:00:00 2022-04-15 00:00:00 Outpatient [facility]OG[facility] [id number] [facility] 2022-04-10 00:00:00 2022-04-10 00:00:00 Outpatient FOG_Cyrus Hassan AO AO [id number] [facility] 2022-04-10 00:00:00 2022-04-10 00:00:00 Hernandez Bridges MD: [address] [place] [address] , Ph. [phone] [facility]OS[facility] [place] - [facility] - F[facility] [place] [id number] [facility] 2022-04-08 00:00:00 2022-04-08 00:00:00 Outpatient FOG_Cyrus Hassan AO AO [id number] [facility] 2022-04-08 00:00:00 2022-04-08 00:00:00 Outpatient [facility] [id number] [facility] 2022-01-07 00:00:00 2022-01-07 00:00:00 OFFICE VISIT EST PT LEVEL 3 STLMLC STLMLC [id number] [facility] 2022-01-05 00:00:00 2022-01-05 00:00:00 Outpatient [facility] [id number] [facility] 2022-01-05 00:00:00 2022-01-05 00:00:00 Karie Tapia SQL SERVER ARCHITECT: [address] [place] [address] , Ph. [phone] [place] [facility] [place] [id number] [facility] 2021-12-31 00:00:00 2021-12-31 00:00:00 Outpatient FOG_Cyrus Hassan AO AO [id number] [facility] 2021-12-27 00:00:00 2021-12-27 00:00:00 Outpatient FOG_Cyrus Hassan AO AO [id number] [facility] 2021-12-20 00:00:00 2021-12-20 00:00:00 Outpatient FOG_Cyrus Hassan AO AO [id number] [facility] 2021-12-15 11:01:00 2021-12-15 11:01:00 Outpatient Chai Ortega [facility] [id number] [facility] 2021-12-15 00:00:00 2021-12-15 00:00:00 Outpatient FOG_Cyrus Hassan AO AO [id number] [facility] 2021-12-15 00:00:00 2021-12-15 00:00:00 Chai Null MD: [address] [place] [address] , Ph. AOS[facility] [place] [facility] - F[facility]OP [id number] [facility] 2021-12-09 00:00:00 2021-12-09 00:00:00 Outpatient FOG_Cyrus Hassan AO AO [id number] [facility] 2021-12-02 00:00:00 2021-12-02 00:00:00 Outpatient FOG_Cyrus Hassan AO AO [id number] [facility] 2021-12-02 00:00:00 2021-12-02 00:00:00 [facility] [id number] 2021-12-02 00:00:00 2021-12-02 00:00:00 Karie Tapia SQL SERVER ARCHITECT: [address] [place] [address] , Ph. [facility] [place] [facility] - FOG_Telem icine [id number] [facility] Medicin e 2021-12-02 00:00:2021-12-02 00:00:00 OFFICE VISIT [facility] [id number] 2021-12-01 00:00:00 2021-12-01 00:00:00 [facility]patient [facility] [id number] [facility] 2021-11-11 00:00:00 2021-11-11 00:00:00 Outpatient [facility] [id number] [facility] 2021-11-11 00:00:00 2021-11-11 00:00:00 Karie Tapia NP: [address] [place] [phone] , Ph. [phone] [place] [facility] [place] [facility] [id number] [facility] 2021-11-11 00:00:00 2021-11-11 00:00:00 [facility] [id number] 2021-11-11 00:00:00 2021-11-11 00:00:00 (TEL) [facility] [id number] [facility] 2021-10-15 09:40:00 2021-10-15 09:40:00 Outpatient Chai Ortega [facility] [id number] [address] [place] [address] [facility] 2021-10-15 00:00:00 2021-10-15 00:00:00 Outpatient [facility]OG[facility] [id number] [facility] 2021-10-15 00:00:00 2021-10-15 00:00:00 Chai Null MD: [address] [place] [phone] , Ph. [place] [facility] [place] - [facility]_OP [id number] [facility] 2021-10-15 00:00:00 2021-10-15 00:00:00 Outpatient Chai Null AO AO [id number] 2021-09-24 13:29:00 2021-09-24 13:29:00 Outpatient Chai Ortega [facility] [id number] 02 [facility] 2021-09-24 07:05:00 2021-09-24 07:05:00 Outpatient FOG_Cyrus Hassan [place] AO [id number] [facility] 2021-09-24 00:00:00 2021-09-24 00:00:00 Outpatient Chai Null [place] [id number] 2021-09-24 00:00:00 2021-09-24 00:00:00 Chai Null MD: [address] [place] [phone] , Ph. AOSM [place] [facility] [place] - FOG_[facility]_OP [id number] [facility] 2021-09-05 03:15:00 2021-09-05 03:15:00 Outpatient FOG_Cyrus COURTNEY AO [id number] [facility] 2021-09-05 00:00:00 2021-09-05 00:00:00 Karie Tapia, SQL SERVER ARCHITECT: [address] [place] [phone] , Ph. [phone] AOSM [place] [facility] [place] [facility] [id number] [facility] 2021-09-05 00:00:00 2021-09-05 00:00:00 Outpatient Karie Tapia AO [id number] 2021-09-05 00:00:00 2021-09-05 00:00:00 Outpatient Karie Tapia [facility] [id number] 2021-09-04 00:00:00 2021-09-04 00:00:00 OFFICE VISIT NEW PT LEVEL 4 [facility] [id number] [facility] 2021-07-14 11:01:00 2021-07-14 11:01:00 Outpatient DARREN_Cyrus _Hernandez_ [facility] [id number] [facility] 2020-07-16 14:30:00 2020-07-16 14:30:00 Outpatient NullChai PAIN [id number] [facility] [place] [facility] 2020-07-01 16:02:46 2020-07-01 16:02:46 Outpatient Chai Null [facility] [id number] [facility] Results Test Description Test Time Test Comments Results Result Co mments Source FASTING:[facility] CANCERTESTOSTERONE,MALE,[id number] 01:22:00* Test Item Value Reference Range Interpretation Comme nts TESTOSTERONE, TOTAL, MALES ( ADULT), [place] (test code = 21245549) 479 ng/dL 250-827 N FASTING:[facility] CANCERPSA, [id number] 01:22:00* Test Item Value Reference Range Interpretation Comme nts PSA, TOTAL (test code = 64920452) 6.11 ng/mL <=4.00 H The total PSA v alue from this assay system is standardized against the WHO standard. The test result will be approximately 20% lower when compared to the equimolar-standardized total PSA ([facility]). Comparison of serial PSA results should be interpreted with this fact in mind. This test was performed using the Siemens chemiluminescent method. Values obtained from different assay methods cannot be usedinterchangeably. PSA levels, regardless ofvalue, should not be interpreted as absoluteevidence of the presence or absence of disease. FASTING:[facility] CANCERCOMPREHENSIVE METABOLIC PANEL(CMP)2022-10-28 00:00:00* Test Item Value Reference Range Interpretation Comme nts ALBUMIN (test code = 1751-7) 4.3 g/dL See_Comment N [Automated messa ge] The system which generated this result transmitted reference range: 3.6-5.1 g/dL. The reference range was not used to interpret this result as normal/abnormal. ALBUMIN/GLOBULIN RATIO (test code = 1759-0) 1.5 (calc) See_Comment N [Automated messa ge] The system which generated this result transmitted reference range: 1.0-2.5 (calc). The reference range was not used to interpret this result as normal/abnormal. ALKALINE PHOSPHATASE (test code = 6768-6) 53 U/L See_Comment N [Automated message] The system which generated this result transmitted reference range: 35-144 U/L. The reference range was not used to interpret this result as normal/abnormal. ALT (test code = 1742-6) 17 U/L See_Comment N [Automated messa ge] The system which generated this result transmitted reference range: 9-46 U/L. The reference range was not used to interpret this result as normal/abnormal. AST (test code = 1920-8) 18 U/L See_Comment N [Automated messa ge] The system which generated this result transmitted reference range: 10-35 U/L. The reference range was not used to interpret this result as normal/abnormal. BILIRUBIN, TOTAL (test code = 1975-2) 0.5 mg/dL See_Comment N [Automated message] The system which generated this result transmitted reference range: 0.2-1.2 mg/dL. The reference range was not used to interpret this result as normal/abnormal. BUN/CREATININE RATIO (test code = 3097-3) SEE NOTE: (calc) See_Comment [Automated message] The system which generated this result transmitted reference range: 6-22 (calc). The reference range was not used to interpret this result as normal/abnormal. CALCIUM (test code = 81094-0) 9.4 mg/dL See_Comment N [Automated messa ge] The system which generated this result transmitted reference range: 8.6-10.3 mg/dL. The reference range was not used to interpret this result as normal/abnormal. CARBON DIOXIDE (test code = 2027-9) 30 mmol/L See_Comment N [Automated messa ge] The system which generated this result transmitted reference range: 20-32 mmol/L. The reference range was not used to interpret this result as normal/abnormal. CHLORIDE (test code = 2075-0) 102 mmol/L See_Comment N [Automated Desuraa ge] The system which generated this result transmitted reference range: 98-110 mmol/L. The reference range was not used to interpret this result as normal/abnormal. CREATININE (test code = 2160-0) 0.86 mg/dL See_Comment N [Automated Desuraa ge] The system which generated this result transmitted reference range: 0.70-1.28 mg/dL. The reference range was not used to interpret this result as normal/abnormal. GLOBULIN (test code = 62212-0) 2.8 g/dL (calc) See_Comment N [Automated message] The system which generated this result transmitted reference range: 1.9-3.7 g/dL (calc). The reference range was not used to interpret this result as normal/abnormal. GLUCOSE (test code = 2345-7) 103 mg/dL See_Comment H [Automated Desuraa Pryv] The system which generated this result transmitted reference range: 65-99 mg/dL. The reference range was not used to interpret this result as normal/abnormal. POTASSIUM (test code = 2823-3) 4.4 mmol/L See_Comment N [Automated Desuraa ge] The system which generated this result transmitted reference range: 3.5-5.3 mmol/L. The reference range was not used to interpret this result as normal/abnormal. PROTEIN, TOTAL (test code = 2885-2) 7.1 g/dL See_Comment N [Automated Desuraa ge] The system which generated this result transmitted reference range: 6.1-8.1 g/dL. The reference range was not used to interpret this result as normal/abnormal. SODIUM (test code = 2951-2) 139 mmol/L See_Comment N [Automated Desuraa ge] The system which generated this result transmitted reference range: 135-146 mmol/L. The reference range was not used to interpret this result as normal/abnormal. UREA NITROGEN (BUN) (test code = 3094-0) 24 mg/dL See_Comment N [Automated message] The system which generated this result transmitted reference range: 7-25 mg/dL. The reference range was not used to interpret this result as normal/abnormal. HEMOGLOBIN [id number] 00:00:00* Test Item Value Reference Range Interpretation Comme nts HEMOGLOBIN A1c (test code = 4548-4) 5.4 % of total Hgb See_Comment N [Automated message] The system which generated this result transmitted reference range: <5.7 % of total Hgb. The reference range was not used to interpret this result as normal/abnormal. CBC (INCLUDES DIFF/PLT)2022-10-28 00:00:00* Test Item Value Reference Range Interpretation Comme nts ABSOLUTE BASOPHILS (test code = 704-7) 48 cells/uL See_Comment N [Automated m essage] The system which generated this result transmitted reference range: 0-200 cells/uL. The reference range was not used to interpret this result as normal/abnormal. ABSOLUTE EOSINOPHILS (test code = 711-2) 366 cells/uL See_Comment N [Automated m essage] The system which generated this result transmitted reference range: 15-500 cells/uL. The reference range was not used to interpret this result as normal/abnormal. ABSOLUTE LYMPHOCYTES (test code = 731-0) 1366 cells/uL See_Comment N [Automated m essage] The system which generated this result transmitted reference range: 850-3900 cells/uL. The reference range was not used to interpret this result as normal/abnormal. ABSOLUTE MONOCYTES (test code = 742-7) 718 cells/uL See_Comment N [Automated m essage] The system which generated this result transmitted reference range: 200-950 cells/uL. The reference range was not used to interpret this result as normal/abnormal. ABSOLUTE NEUTROPHILS (test code = 751-8) 4402 cells/uL See_Comment N [Automated m essage] The system which generated this result transmitted reference range: 9822-1150 cells/uL. The reference range was not used to interpret this result as normal/abnormal. BASOPHILS (test code = 706-2) 0.7 % N EOSINOPHILS (test code = 713-8) 5.3 % N HEMATOCRIT (test code = 4544-3) 42.0 % See_Comment N [Automated messa ge] The system which generated this result transmitted reference range: 38.5-50.0 %. The reference range was not used to interpret this result as normal/abnormal. HEMOGLOBIN (test code = 718-7) 13.7 g/dL See_Comment N [Automated messa ge] The system which generated this result transmitted reference range: 13.2-17.1 g/dL. The reference range was not used to interpret this result as normal/abnormal. LYMPHOCYTES (test code = 736-9) 19.8 % N MCH (test code = 785-6) 28.7 pg See_Comment N [Automated messa ge] The system which generated this result transmitted reference range: 27.0-33.0 pg. The reference range was not used to interpret this result as normal/abnormal. MCHC (test code = 786-4) 32.6 g/dL See_Comment N [Automated messa ge] The system which generated this result transmitted reference range: 32.0-36.0 g/dL. The reference range was not used to interpret this result as normal/abnormal. MCV (test code = 787-2) 88.1 fL See_Comment N [Automated messa ge] The system which generated this result transmitted reference range: 80.0-100.0 fL. The reference range was not used to interpret this result as normal/abnormal. MONOCYTES (test code = 5905-5) 10.4 % N MPV (test code = 776-5) 10.0 fL See_Comment N [Automated messa ge] The system which generated this result transmitted reference range: 7.5-12.5 fL. The reference range was not used to interpret this result as normal/abnormal. NEUTROPHILS (test code = 770-8) 63.8 % N PLATELET COUNT (test code = 777-3) 268 Thousand/uL See_Comment N [Automated message] The system which generated this result transmitted reference range: 140-400 Thousand/uL. The reference range was not used to interpret this result as normal/abnormal. RDW (test code = 788-0) 12.8 % See_Comment N [Automated messa ge] The system which generated this result transmitted reference range: 11.0-15.0 %. The reference range was not used to interpret this result as normal/abnormal. RED BLOOD CELL COUNT (test code = 789-8) 4.77 Million/uL See_Comment N [Automated message] The system which generated this result transmitted reference range: 4.20-5.80 Million/uL. The reference range was not used to interpret this result as normal/abnormal. WHITE BLOOD CELL COUNT (test code = 6690-2) 6.9 Thousand/uL See_Comment N [Automated message] The system which generated this result transmitted reference range: 3.8-10.8 Thousand/uL. The reference range was not used to interpret this result as normal/abnormal. MICROALBUMIN, RANDOM URINE (W/CREATININE)2022-10-28 00:00:00* Test Item Value Reference Range Interpretation Comme nts CREATININE, RANDOM URINE (test code = 2161-8) 50 mg/dL See_Comment N [Automated Desuraa Pryv] The system which generated this result transmitted reference range: 20-320 mg/dL. The reference range was not used to interpret this result as normal/abnormal. ALBUMIN, URINE (test code = 91343-9) 0.2 mg/dL See Note: mg/dL N ALBUMIN/CREATININ E RATIO, RANDOM URINE (test code = 9318-7) 4 mcg/mg creat See_Comment N [Automated Desuraa Pryv] The system which generated this result transmitted reference range: <30 mcg/mg creat. The reference range was not used to interpret this result as normal/abnormal. LIPID [id number] 00:00:00* Test Item Value Reference Range Interpretation Comme nts CHOL/HDLC RATIO (test code = 9830-1) 3.1 (calc) See_Comment N [Automated Desuraa Pryv] The system which generated this result transmitted reference range: <5.0 (calc). The reference range was not used to interpret this result as normal/abnormal. CHOLESTEROL, TOTAL (test code = 2093-3) 157 mg/dL See_Comment N [Automated message] The system which generated this result transmitted reference range: <200 mg/dL. The reference range was not used to interpret this result as normal/abnormal. HDL CHOLESTEROL (test code = 2085-9) 50 mg/dL See_Comment N [Automated Desuraa Pryv] The system which generated this result transmitted reference range: > OR = 40 mg/dL. The reference range was not used to interpret this result as normal/abnormal. LDL-CHOLESTEROL (test code = 55926-0) 86 mg/dL (calc) N NON HDL CHOLESTEROL (test code = 52570-7) 107 mg/dL (calc) See_Comment N [Automated message] The system which generated this result transmitted reference range: <130 mg/dL (calc). The reference range was not used to interpret this result as normal/abnormal. TRIGLYCERIDES (test code = 2571-8) 109 mg/dL See_Comment N [Automated messa ge] The system which generated this result transmitted reference range: <150 mg/dL. The reference range was not used to interpret this result as normal/abnormal. GLUCOSE [id number] 12:09:00* Test Item Value Reference Range Interpretation Comme nts GLUCOSE BEDSIDE (test code = GLUBED) 123 MG/DL 70-110 H Performed by cer radha certified forklift operator at [facility] CBC W/AUTO [id number] 08:59:00* Test Item Value Reference Range Interpretation Comme nts WHITE BLOOD CELL (test code = WBC) 7.3 x10 3/uL 4.5-11.0 N RED BLOOD CELL (test code = RBC) 3.97 x10 6/uL 4.00-5.60 L HEMOGLOBIN (test code = HGB) 11.6 g/dL 12.5-16.9 L HEMATOCRIT (test code = HCT) 35.6 % 37.5-50.7 L MEAN CELL VOLUME (test code = MCV) 89.7 fL 81.0-99.0 N MEAN CELL HGB (test code = MCH) 29.2 pg 27.0-33.0 N MEAN CELL HGB CONCETRATION (test code = MCHC) 32.6 g/dL 33.0-37.0 L RED CELL DISTRIBUTION WIDTH CV (test code = RDW) 13.1 % 11.5-14.5 N RED CELL DISTRIBUTION WIDTH SD (test code = RDW-SD) 43.2 fL 37.0-54.0 N PLATELET COUNT (test code = PLT) 198 x10 3/uL 150-400 N MEAN PLATELET VOLUME (test c ode = MPV) 9.9 fL 7.0-9.0 H NEUTROPHIL % (test code = NT%) 73.0 % 56.0-77.0 N IMMATURE GRANULOCYTE % (test code = IG%) 0.5 % 0.0-2.0 N LYMPHOCYTE % (test code = LY%) 12.5 % 14.0-32.0 L MONOCYTE % (test code = MO%) 9.9 % 4.8-9.0 H EOSINOPHIL % (test code = EO%) 3.6 % 0.3-3.7 N BASOPHIL % (test code = BA%) 0.5 % 0.0-2.0 N NUCLEATED RBC % (test code = NRBC%) 0.0 % 0-0 N NEUTROPHIL # (test code = NT#) 5.32 x10 3/uL 2.0-7.6 N IMMATURE GRANULOCYTE # (test code = IG#) 0.04 x10 3/uL 0.00-0.03 H LYMPHOCYTE # (test code = LY#) 0.91 x10 3/uL 1.0-3.8 L MONOCYTE # (test code = MO#) 0.72 x10 3/uL 0.1-0.8 N EOSINOPHIL # (test code = EO#) 0.26 x10 3/uL 0.0-0.2 H BASOPHIL # (test code = BA#) 0.04 x10 3/uL 0.0-0.2 N NUCLEATED RBC # (test code = NRBC#) 0.00 x10 3/uL 0.0-0.1 N MANUAL DIFF REQUIRED (test c ode = MDIFF) NO BASIC METABOLIC [id number] 08:44:00* Test Item Value Reference Range Interpretation Comme nts SODIUM (test code = NA) 143 mEq/L 134-147 N POTASSIUM (test code = K) 3.6 mEq/L 3.4-5.0 N CHLORIDE (test code = CL) 111 mEq/L 100-108 H CARBON DIOXIDE (test code = CO2) 26 mEq/l 21-33 N ANION GAP (test code = GAP) 10 0-20 N GLUCOSE (test code = GLU) 106 mg/dL 70-110 N BLOOD UREA NITROGEN (test code = BUN) 15 mg/dL 7-18 N GLOMERULAR FILTRATION RATE (test code = GFR) 94.6 70-80 H The Glomerular Filtration Rate is a calculated parameterbased on serum Creatinine, patient age and sex. GFR valuesless than 60 mL/min/1.73 square meters are indicative ofChronic Kidney Disease. Values less than 15 mL/min/1.73square meters indicate Kidney failure. The calculation forGFR is based on the CKD-EPI (2020) calculation. This formulais race indifferent and is the recommended formula for GFRby the National Kidney Foundation for Adults.The GFR will not calculate if the sex is unknown or if thepatient's age is <18 years. CREATININE (test code = CREAT) 0.8 mg/dL 0.6-1.3 N CALCIUM (test code = CA) 8.1 mg/dL 8.0-10.5 N GLUCOSE [id number] 08:31:00* Test Item Value Reference Range Interpretation Comme nts GLUCOSE BEDSIDE (test code = GLUBED) 113 MG/DL 70-110 H Performed by cer tified certified forklift operator at [facility] GLUCOSE [id number] 23:36:00* Test Item Value Reference Range Interpretation Comme nts GLUCOSE BEDSIDE (test code = GLUBED) 143 MG/DL 70-110 H Performed by [facility] tified certified forklift operator at [facility] [id number] 15:12:00* Test Item Value Reference Range Interpretation Comme nts ACT-ISTAT (test code = ACTI) 299 SEC 74-137 H Performed by [facility] tified certified forklift operator at [facility] [id number] 15:03:00* Test Item Value Reference Range Interpretation Comme nts ACT-ISTAT (test code = ACTI) 287 SEC 74-137 H Performed by [facility] tified certified forklift operator at [facility] [id number] 14:44:00* Test Item Value Reference Range Interpretation Comme nts ACT-ISTAT (test code = ACTI) 281 SEC 74-137 H Performed by [facility] tified certified forklift operator at [facility] GLUCOSE [id number] 12:16:00* Test Item Value Reference Range Interpretation Comme nts GLUCOSE BEDSIDE (test code = GLUBED) 99 MG/DL 70-110 N Performed by [facility] certified forklift operator at [facility] - DUP UE ART [id number]/[id number] 00:00:00 [facility] : 1950 Sex: M Name: JUDY MARIA [facility] Chris Sahu : 1950 Age/S: 72 / M [address] [place] [address] Unit #: [id number] Loc: [place] [address] Phys: Scout Forte MD Acct: [id number] Dis Date: Status: ADM IN PHONE #: [phone] Exam Date: 09/29/20222104 FAX #: [phone] Reason: R ARM ASSESHEMATOMA EXAMS: CPT CODE: [id number] [facility] RANDALLIA[facility] ART UNI/LTD 23292 PROCEDURE INFORMATION: Exam: US Duplex Right Upper Extremity Arteries Exam date and time: 09/29/2022 8:25 PM Age: 72 years old Clinical indication: Swelling (edema) of limb; Upper extremity, right; Additional info: R arm asses hematoma TECHNIQUE: Imaging protocol: Right Real-time ultrasound scan of the arteries of the right upper extremity with 2-D mock scale, color Doppler flow and spectral waveform analysis. COMPARISON: No relevant prior studies available. FINDINGS: Right subclavian artery: No occlusion or significant stenosis. Normal waveform. Right axillary artery: No occlusion or significant stenosis. Normal waveform. Rightbrachial artery: No occlusion or significant stenosis. Normal waveform. Right radial artery: No occl usion or significant stenosis. Normal waveform. Right ulnar artery: No occlusion or significant stenosis. Normal waveform. Soft tissues: There is a complex fluid collection in the forearm measuring 8.0 x 2.6 x 4.8 cm in size. IMPRESSION: 1. Unremarkable vasculature. 2. Complex fluid collection ofthe forearm concerning for hematoma versus abscess. at 2210 Reported and signed by: Shamika Oro M.D CC: Chai Null M.D.; Omid Forte MD Technologist: Lynn Baez RDMS(AB)(OB) Trnscb Date/Time: 09/29/2022 (2209) [email or web address] Orig Print D/T: S: 09/29/2022 (0) Probe: PAGE 1 Signed ReportBASIC METABOLIC PANEL 2022-09-25 18:29:00* Test Item Value Reference Range Interpretation Comme nts SODIUM (test code = NA) 143 mEq/L 134-147 N POTASSIUM (test code = K) 4.3 mEq/L 3.4-5.0 N CHLORIDE (test code = CL) 105 mEq/L 100-108 N CARBON DIOXIDE (test code = CO2) 29 mEq/l 21-33 N ANION GAP (test code = GAP) 13 0-20 N GLUCOSE (test code = GLU) 124 mg/dL 70-110 H BLOOD UREA NITROGEN (test code = BUN) 22 mg/dL 7-18 H GLOMERULAR FILTRATION RATE (test code = GFR) 71.8 70-80 N The Glomerular Filtration Rate is a calculated parameterbased on serum Creatinine, patient age and sex. GFR valuesless than 60 mL/min/1.73 square meters are indicative ofChronic Kidney Disease. Values less than 15 mL/min/1.73square meters indicate Kidney failure. The calculation forGFR is based on the CKD-EPI (2020) calculation. This formulais race indifferent and is the recommended formula for GFRby the National Kidney Foundation for Adults.The GFR will not calculate if the sex is unknown or if thepatient's age is <18 years. CREATININE (test code = CREAT) 1.1 mg/dL 0.6-1.3 N CALCIUM (test code = CA) 9.9 mg/dL 8.0-10.5 N PROTHROMBIN [id number] 18:15:00* Test Item Value Reference Range Interpretation Comme nts PROTHROMBIN TIME PATIENT (test code = PTP) 12.6 SECONDS 9.3-12.9 N INTERNATIONAL NORMAL RATIO (test code = INR) 1.1 0.8-1.2 N TARGET INR BY INDICATION Indication INR1. Prophylaxis of venous thrombosis 2.0 - 3.0 (orthopedic surgery), Prophylaxis of venous thrombosis (other than high-risk surgery), Treatment of Deep Vein Thrombosis/Pulmonary Embolism, Prevention of systemic embolism - Tissue heart valves, Acute Myocardial Infarction (to prevent systemic embolism), Valvular heart disease, Atrial Fibrillation, Bileaflet mechanical valve in aortic position.2. Mechanical prosthetic valves (high risk), 2.5 - 3.5 Presence of Lupus Anticoagulant or Antiphospholipid Antibodies, Prevention of systemic embolism - Acute Myocardial Infarction (to prevent recurrent infarct). CBC W/AUTO [id number] 18:05:00* Test Item Value Reference Range Interpretation Comme nts WHITE BLOOD CELL (test code = WBC) 7.2 x10 3/uL 4.5-11.0 N RED BLOOD CELL (test code = RBC) 4.71 x10 6/uL 4.00-5.60 N HEMOGLOBIN (test code = HGB) 13.5 g/dL 12.5-16.9 N HEMATOCRIT (test code = HCT) 41.8 % 37.5-50.7 N MEAN CELL VOLUME (test code = MCV) 88.7 fL 81.0-99.0 N MEAN CELL HGB (test code = MCH) 28.7 pg 27.0-33.0 N MEAN CELL HGB CONCETRATION (test code = MCHC) 32.3 g/dL 33.0-37.0 L RED CELL DISTRIBUTION WIDTH CV (test code = RDW) 13.1 % 11.5-14.5 N RED CELL DISTRIBUTION WIDTH SD (test code = RDW-SD) 42.8 fL 37.0-54.0 N PLATELET COUNT (test code = PLT) 272 x10 3/uL 150-400 N MEAN PLATELET VOLUME (test c ode = MPV) 10.3 fL 7.0-9.0 H NEUTROPHIL % (test code = NT%) 70.5 % 56.0-77.0 N IMMATURE GRANULOCYTE % (test code = IG%) 0.6 % 0.0-2.0 N LYMPHOCYTE % (test code = LY%) 16.5 % 14.0-32.0 N MONOCYTE % (test code = MO%) 8.2 % 4.8-9.0 N EOSINOPHIL % (test code = EO%) 3.6 % 0.3-3.7 N BASOPHIL % (test code = BA%) 0.6 % 0.0-2.0 N NUCLEATED RBC % (test code = NRBC%) 0.0 % 0-0 N NEUTROPHIL # (test code = NT#) 5.08 x10 3/uL 2.0-7.6 N IMMATURE GRANULOCYTE # (test code = IG#) 0.04 x10 3/uL 0.00-0.03 H LYMPHOCYTE # (test code = LY#) 1.19 x10 3/uL 1.0-3.8 N MONOCYTE # (test code = MO#) 0.59 x10 3/uL 0.1-0.8 N EOSINOPHIL # (test code = EO#) 0.26 x10 3/uL 0.0-0.2 H BASOPHIL # (test code = BA#) 0.04 x10 3/uL 0.0-0.2 N NUCLEATED RBC # (test code = NRBC#) 0.00 x10 3/uL 0.0-0.1 N MANUAL DIFF REQUIRED (test c ode = IFF) NO - XR CHEST 2 [id number] 00:00:00 [facility] : 1950 Sex: M FAX: Chai Hutton MD [phone] [place]: St: PRE FAX: Scout Ayala MD [phone] Name: OLIVIA MARIA [facility] : 1950 Age/S: 72/M [address] [place] [address] Unit #: [id number] Loc:[place] [address] Phys: Scout Forte MD Acct: [id number] Dis Date: Status: PRE SDC PHONE #: [phone] Exam Date: 09/25/2022 1614 FAX #: [phone] Reason: PRE OP EXAMS: CPT CODE: [id number] XR CHEST 2 V 39534 PROCEDURE INFORMATION: Exam: XR Chest Exam date and time: 09/25/2022 4:11 PM Age: 72 years old Clinical indication: Pre-operative exam; Respiratory screening exam; Additional info: Pre op TECHNIQUE: Imaging protocol: Radiologic exam of the chest. Views: 2 views. PA and Lateral COMPARISON: RF XR FLUORO FOR SPINE INJ 12/15/2021 1:21 PM FINDINGS: Lungs: No consolidation. Pleural spaces: No pleural effusion. Heart/Mediastinum: The heart and vascular markings are within limits of normal. There is atherosclerotic calcification of the aorta. Bones/joints: No gross acute findings. Prior sternotomy changes. IMPRESSION: No acute cardiopulmonary findings at 1646 Reported and signed by: Horace Macias D.O. CC: Chai Null M.D.; Scout Forte MD Technologist: RT Derek(Iris) Trnscrd Date/Time/By: 09/25 (1645) : By: [email or web address] Orig Print D/T: S: 09/25/2022 (1645) PAGE 1 Signed ReportVIT D,25-OH,TOTAL,[id number] 02:23:00* Test Item Value Reference Range Interpretation Comme nts VITAMIN D,25-OH,TOTAL,IA (test code = 90600287) 43 ng/mL 30-100 N Vitamin D Status 25-OH Vitamin D: Deficiency: <20 ng/mLInsufficiency: 20 - 29 ng/mLOptimal: > or = 30 ng/mL For 25-OH Vitamin D testing on patients on D2-supplementation and patients for whom quantitation of D2 and D3 fractions is required, the QuestAssureD(TM)25-OH VIT D, (D2,D3), LC/MS/MS is recommended: order code 61316 (patients >2yrs).See Note 1 Note 1 For additional information, please refer to [email or web address]/faq/VFK850 (This link is being provided for informational/educationa l purposes only.) FASTING:[facility]ENTERZOS[facility]ION[facility] CANCERTESTOSTERONE,MALE,[id number] 02:23:00* Test Item Value Reference Range Interpretation Comme nts TESTOSTERONE, TOTAL, MALES ( ADULT), IA (test code = 96893917) 426 ng/dL 250-827 N FASTING:NOBRAZOSPORT REGIONAL CANCERPSA, [id number] 02:23:00* Test Item Value Reference Range Interpretation Comme nts PSA, TOTAL (test code = 99982164) 6.01 ng/mL <=4.00 H The total PSA v alue from this assay system is standardized against the WHO standard. The test result will be approximately 20% lower when compared to the equimolar-standardized total PSA ([facility]). Comparison of serial PSA results should be interpreted with this fact in mind. This test was performed using the Siemens chemiluminescent method. Values obtained from different assay methods cannot be usedinterchangeably. PSA levels, regardless ofvalue, should not be interpreted as absoluteevidence of the presence or absence of disease. FASTING:[facility]- XR FLUORO FOR SPINE [id number] 20:36:00 [facility] : 1950 Sex: MPatient Name: JUDY MARIA Unit No: [id number] EXAMS: CPT CODE: [id number] XR FLUORO FOR SPINE INJ 00263 LUMBAR TRANSFORAMINAL INJECTION REFERRAL PHYSICIAN: None PREOPERATIVE DIAGNOSIS: LumbarDisc Degeneration and Radiculitis POSTOPERATIVE DIAGNOSIS: Lumbar disc degeneration with lumbar radiculitis PROCEDURES PERFORMED: Fluoroscopically guided needle localization of the right L2 and left L4 spinal nerves with transforaminal injection of local anesthetic and steroid. FINDINGS: Mild lossof disc space height is seen at L2-3 with posterior internal annular degeneration. Marked loss of disc space height with diffuse annular degeneration is seen at L4-5. Provocation was negative. Anesthetic response was partial with the patient having residual low back pain. Infraneural approaches were taken at each level. Preinjection VAS 2-7/10. Postinjection VAS 2/10. Steroid response pending follow-up. ESTIMATED BLOOD LOSS: Minimal ANESTHESIA: TIVA COMPLICATIONS: None DETAILS OF PROCEDURE: After obtaining stable vital signs, informed consent and IV access, with no contraindications, the patient was taken to the operating room and placed in a prone position with all extremities padded and appropriate monitors placed. The patient was sterilely prepped and draped over the lumbosacral spine.Using fluoroscopic visualization the insertion sites were marked for paravertebral approaches and using standard technique, a 25 gauge needle was advanced to the base of each pedicle without paresthesias. Isovue-300 contrast 0.2 mL of was injected incrementally with frequent negative aspirations toproduce each epidurogram. There were no signs of intravascular or intrathecal uptake. Intradiscal uptake was seen at each level. Bupivicaine 0.75% 0.25 mL with lidocaine 4% 0.25 mL and triamcinolone 30 mg with kefzol (100 mg/ml) 0.2 ml was then incrementally injected with frequent negative aspirations at each level and again there were no signs of intravascular or intrathecal uptake. The needles were removed and the patient was taken to the PACU in good condition. Electronically Signed: MichaelT. Tennille M.D. Image: Image 1 Image: Image 2 Image: Image 3 [facility] NAME: JUDY JUAREZ [address] [facility] PHYS: Chai Cox MD [place], [place] [address] : 1950 AGE: 71 SEX: M LOC: JayJUMANA PHONE #: [phone] EXAM DATE: 12/15/2021 STATUS: REG [facility] FAX #: [phone] RAD #: D/C DT PAGE 1 Signed Report (CONTINUED) Patient Name: JUDY MARIA Unit No: [id number] EXAMS: CPT CODE: [id number] XR FLUORO FOR SPINE INJ 50581 (Continued) at 2035 Reported and signed by: Chai Null M.D. CC: Technologist: Kelly Mckinnon(R) Transcribed D/ (2035) [facility] [place] NAME: JUDY MARIA [address] [place] [address] PHYS: Chai Cox MD [place] [address] : 1950 AGE: 71 SEX: M LOC: MARY ELLEN PHONE #: [phone] EXAM DATE: 12/15/2021 STATUS: REG [facility] FAX #: [phone] RAD #: D/C DT PAGE 2 Signed Report Patient Name: JUDY MARIA Unit No: [id number] EXAMS: CPT CODE: [id number] XR FLUORO FOR SPINE INJ 98792 (Continued) Orig Print D/T: S: 12/15/2021 (2038) [facility] [place] NAME: JUDY MARIA [address] [facility] PHYS: [place] [address] : 1950 AGE: 71 SEX: M LOC: MARY ELLEN PHONE #: [phone] EXAM DATE: 12/15/2021 STATUS: REG [facility] FAX #: [phone] RAD #: D/C DT PAGE 3 Signed [id number] 13:54:00* Test Item Value Reference Range Interpretation Comme nts GLUBED (test code = GLUBED) 124 mg/dL 60-125 N [id number] 13:42:00* Test Item Value Reference Range Interpretation Comme nts glubed (test code = glubed) 124 mg/dL 60-125 performing lab: (test code = performing lab:) [facility] 13:42:00* Test Item Value Reference Range Interpretation Comme nts glubed (test code = glubed) 124 mg/dL 60-125 performing lab: (test code = performing lab:) [facility] 12:10:00* Test Item Value Reference Range Interpretation Comme nts GLUBED (test code = GLUBED) 139 mg/dL 60-125 H [id number] 11:59:00* Test Item Value Reference Range Interpretation Comme nts glubed (test code = glubed) 139 mg/dL 60-125 H performing lab: (test code = performing lab:) [facility] 11:59:00* Test Item Value Reference Range Interpretation Comme nts glubed (test code = glubed) 139 mg/dL 60-125 H performing lab: (test code = performing lab:) [facility] [id number] 00:00:00* Test Item Value Reference Range Interpretation Comme nts Hgb A1c MFr Bld (test code = 4548-4) 6.5 - XR FLUORO FOR SPINE [id number] 13:19:00 [facility] : 1950 Sex: MPatient Name: JUDY MARIA Unit No: [id number] EXAMS: CPT CODE: [id number] XR FLUORO FOR SPINE INJ 86475 LUMBAR FACET INJECTION DIAGNOSTIC REFERRAL PHYSICIAN: None PREOPERATIVE DIAGNOSIS: Lumbar spondylosis without myelopathy or radiculopathy POSTOPERATIVE DIAGNOSIS: Lumbar spondylosis without myelopathy or radiculopathy PROCEDURE PERFORMED: Fluoroscopically guided needle localization of the bilateral L4-5 facets with arthrograms and diagnostic injection of local anesthetic and steroid.FINDINGS: Both joints showed marked capsular degeneration worse on the left. Provocation with injection was negative. Anesthetic response was positive with the patient noting relief of his low back pain. Preinjection VAS 7/10. Postinjection VAS 0/10. Steroid response pending follow-up. ESTIMATED BLOOD LOSS: Minimal ANESTHESIA: TIVA COMPLICATIONS: None DETAILS OF PROCEDURE: After obtaining stablevital signs, informed consent and IV access patient was taken to the fluoroscopy suite where the patient was placed in a prone position with all extremities padded and appropriate monitors placed. The patient was sterilely prepped prepped and draped over the lumbosacral spine. Using fluoroscopic visualization, the insertion sites were marked for a paravertebral approach to each joint. Using standard technique, a 26 -gauge needle was inserted into each joint capsule without paresthesias. At alllevels, aspiration was negative for clear serous fluid. Isovue-300 contrast 0.2 mL was injected to produce each arthrogram. There were no signs of intravascular or intrathecal uptake. Bupivicaine 0.75% 0.25 mL with Lidocaine 4% 0.25 ml and triamcinolone 16 mg was then injected incrementally into each joint. There were no signs of intravascular or intrathecal uptake. The patient's vital signs remained stable. All needles were removed and the patient was taken to the PACU in good condition. Electronically Signed: Chai Null M.D. Image: Image 1 Image: Image 2 at 1319 Reported and signed by: Chai Null M.D. [facility] [place] NAME: JUDY MARIA [address] [facility] PHYS: Chai Cox MD [place], [place] [address] : 1950 AGE: 71 SEX: M LOC: MARY ELLEN PHONE #: [phone] EXAM DATE: 10/15/2021 STATUS: REG [facility] FAX #: [phone] RAD #: D/C DT PAGE 1 Signed Report (CONTINUED) Patient Name: GUILLEJUDY Locke Unit No: [id number] EXAMS: CPT CODE: [id number] XR FLUORO FOR SPINE INJ 20518 (Continued) CC: Chai Null MD Technologist: [place] RT(R) Transcribed D/ (1319) [facility] [place] NAME: JUDY MARIA [address] [facility] PHYS: Chai Cox MD [place] [address] : 1950 AGE: 71SEX: M LOC: MARY ELLEN PHONE #: [phone] EXAM DATE: 10/15/2021 STATUS: REG SDCFAX #: [phone] RAD #: D/C DT PAGE 2 Signed Report Patient Name: JUDY MARIA Unit No:[id number] EXAMS: CPT CODE: [id number] XR FLUORO FOR SPINE INJ 82428 (Continued) Orig Print D/T: S: 10/15/2021 (1322) [facility] [place] NAME: JUDY MARIA [address] [facility] PHYS: Chai Cox MD [place] [address] : 1950 AGE: 71 SEX: M LOC: MARY ELLEN PHONE #: [phone] EXAM DATE: 10/15/2021 STATUS: REG SDC FAX #: [phone] RAD #: D/C DT PAGE 3 Signed [id number] 12:31:00* Test Item Value Reference Range Interpretation Comme nts GLUBED (test code = GLUBED) 107 mg/dL 60-125 N [id number] 12:20:00* Test Item Value Reference Range Interpretation Comme nts glubed (test code = glubed) 107 mg/dL 60-125 performing lab: (test code = performing lab:) [facility] [id number] 10:39:00* Test Item Value Reference Range Interpretation Comme nts GLUBED (test code = GLUBED) 127 mg/dL 60-125 H hmtvvd9078-79-87 10:26:00* Test Item Value Reference Range Interpretation Comme nts glubed (test code = glubed) 127 mg/dL 60-125 H performing lab: (test code = performing lab:) [facility] Hospitalglubed2022-07-27 10:26:00* Test Item Value Reference Range Interpretation Comme nts glubed (test code = glubed) 127 mg/dL 60-125 H performing lab: (test code = performing lab:) [facility]- XR FLUORO FOR SPINE [id number] 20:57:00 [facility] : 1950 Sex: MPatient Name: JUDY MARIA Unit No: [id number] EXAMS: CPT CODE: [id number] XR FLUORO FOR SPINE INJ 51710 LUMBAR TRANSFORAMINAL INJECTION REFERRAL PHYSICIAN: None PREOPERATIVE DIAGNOSIS: Lumbar Disc Degeneration and Radiculitis POSTOPERATIVE DIAGNOSIS: Lumbar disc degeneration with left lumbar radiculitis PROCEDURES PERFORMED: Fluoroscopically guided needle localization of the left L4 spinal nerve with transforaminal injection of local anesthetic and steroid. FINDINGS: Marked loss of disc space height with diffuse annular degeneration and early grade 1 spondylolisthesis is seen at L4-5. Provocation was negative. Anesthetic response was positive with the patient noting complete reliefof his low back and radiating pain. An infraneural approach was taken. Preinjection VAS 8/10. Postin jection VAS 0/10. Steroid response pending follow-up. ESTIMATED BLOOD LOSS: Minimal ANESTHESIA: TIVA COMPLICATIONS: None DETAILS OF PROCEDURE: After obtaining stable vital signs, informed consent and IV access, with no contraindications, the patient was taken to the operating room and placed in a p mateo position with all extremities padded and appropriate monitors placed. The patient was sterilely prepped and draped over the lumbosacral spine. Using fluoroscopic visualization the insertion sitewas marked for a paravertebral approach and using standard technique, a 25 gauge needle was advanced to the base of the pedicle without paresthesias. Isovue-300 contrast 0.2 mL of was injected incrementally with frequent negative aspirations to produce the epidurogram. There were no signs of intravascular or intrathecal uptake. Intradiscal uptake was seen. Bupivicaine 0.75% 0.25 mL with lidocaine4% 0.25 mL and triamcinolone 30 mg with kefzol (100 mg/ml) 0.2 ml was then incrementally injected with frequent negative aspirations and again there were no signs of intravascular or intrathecal uptake. The needles were removed and the patient was taken to the PACU in good condition. ElectronicallySigned: Chai Null M.D. Image: Image 1 Image: Image 2 at 2056 Reported and signed by: Chai Null M.D. [facility] NAME: JUDY MARIA SUZI [address] [facility] PHYS: Chai Cox MD [place] [address] : 1950 AGE: 71 SEX: M LOC: MarcoRADHA PHONE #: [phone] DATE: 09/24/2021 STATUS: REG [facility] FAX #: [phone] RAD #: D/C DT PAGE 1 Signed Report (CONTINUED) Patient Name: JUDY MARIABY Unit No: [id number] EXAMS: CPT CODE: [id number] XR FLUORO FOR SPINE INJ 45432 (Continued) CC: Technologist: Kelly Mckinnon(R) Transcribed D/ (2056) [facility]: JUDY MARIA [address] [facility] PHYS: Chai Cox MD [place], [place] [address] : 1950 AGE: 71 SEX: M LOC: JayJUMANA PHONE #: [phone] EXAM DATE: 09/24/2021 STATUS: REG [facility] FAX #: [phone] RAD #: D/C DT PAGE 2 Signed Report Patient Name: JUDY MARIA Unit No: [id number] EXAMS: CPT CODE: [id number] XR FLUORO FOR SPINE INJ 97404 (Continued) Orig Print D/T: S: 09/24/2021 (2100) [facility] [place] NAME: JUDY MARIA [address] [facility] PHYS: Chai Cox MD [place], [place] [address] : 1950 AGE: 71 SEX: M LOC: MARY ELLEN PHONE #: [phone] EXAM DATE: 09/24/2021 STATUS: REG [facility] FAX #: [phone] RAD #: D/C DT PAGE 3 Signed ReportGLUBED 2021-09-24 15:33:00* Test Item Value Reference Range Interpretation Comme nts GLUBED (test code = GLUBED) 96 mg/dL 60-125 N [id number] 15:22:00* Test Item Value Reference Range Interpretation Comme nts glubed (test code = glubed) 96 mg/dL 60-125 performing lab: (test code = performing lab:) [facility] 15:22:00* Test Item Value Reference Range Interpretation Comme nts glubed (test code = glubed) 96 mg/dL 60-125 performing lab: (test code = performing lab:) [place] [id number] 14:28:00* Test Item Value Reference Range Interpretation Comme nts GLUBED (test code = GLUBED) 109 mg/dL 60-125 N [id number] 14:17:00* Test Item Value Reference Range Interpretation Comme nts glubed (test code = glubed) 109 mg/dL 60-125 performing lab: (test code = performing lab:) [place] [id number] 14:17:00* Test Item Value Reference Range Interpretation Comme nts glubed (test code = glubed) 109 mg/dL 60-125 performing lab: (test code = performing lab:) [facility]- XR FLUORO FOR SPINE [id number] 22:49:00 [facility] : 1950 Sex: MPatient Name: JUDY MARIA Unit No: [id number] EXAMS: CPT CODE: [id number] XR FLUORO FOR SPINE INJ 87721 LUMBAR FACET INJECTION DIAGNOSTIC REFERRAL PHYSICIAN: None PREOPERATIVE DIAGNOSIS: Lumbar spondylosis without myelopathy or radiculopathy POSTOPERATIVE DIAGNOSIS: Lumbar spondylosis without myelopathy or radiculopathy PROCEDURE PERFORMED: Fluoroscopically guided needle localization of the bilateral L4-5 facets with arthrograms and diagnostic injection of local anesthetic and steroid. FINDINGS: Marked capsular degeneration with marked right L4-5 and moderate left L4-5 facet hypertrophy is seen. Provocation with injection was negative. Aspiration was negative. Anesthetic response was partial with the patient having residual low back pain. Preinjection VAS 5/10. Postinjection VAS 2/10. Steroid response pending follow-up. ESTIMATED BLOOD LOSS: Minimal ANESTHESIA: TIVA COMPLICATIONS: None DETAILS OF PROCEDURE: After obtaining stable vital signs, informed consent and IV access patient was taken to the fluoroscopy suite where the patient was placed in a prone position with all extremities padded and appropriate monitors placed. The patient was sterilely prepped prepped and draped over the lumbosacral spine. Using fluoroscopic visualization, the insertion sites were marked for a paravertebral approach to each joint. Using standard technique, a 26 -gauge needle was insertedinto each joint capsule without paresthesias. At all levels, aspiration was negative for clear serous fluid. Isovue-300 contrast 0.2 mL was injected to produce each arthrogram. There were no signs of intravascular or intrathecal uptake. Bupivicaine 0.75% 0.25 mL with Lidocaine 4% 0.25 ml and triamcinolone 16 mg was then injected incrementally into each joint. There were no signs of intravascularor intrathecal uptake. The patient's vital signs remained stable. All needles were removed and the patient was taken to the PACU in good condition. Image: Image 1 Image: Image 2 at 2249 Reported and signed by: Chai Null M.D. [facility] [place] NAME: JUDY MARIA [address] [facility] PHYS: Chai Cox MD [place] [address] : 1950 AGE: 69 SEX: M LOC: MARY ELLEN PHONE #: [phone] EXAM DATE: 07/16/2020 STATUS: REG [facility] FAX #: [phone] RAD #: D/C DT PAGE 1 Signed Report (CONTINUED) Patient Name: JUDY MARIA Unit No: [id number] EXAMS: CPT CODE: [id number] XR FLUORO FOR SPINE INJ 87534 (Continued) CC: Technologist: Kelly Mckinnon(R) Transcribed D/ (2248) [facility] [place] NAME: JUDY MARIA [address] [facility] PHYS: Chai Cox MD [place] [address] : 1950 AGE: 69 SEX: MACCT NO: [id number] LOC: MARY ELLEN PHONE #: [phone] EXAM DATE: 07/16/2020 STATUS: REG [facility] FAX #:[phone] RAD #: D/C DT PAGE 2 Signed Report Patient Name: JUDY MARIA Unit No: [id number] EXAMS: CPT CODE: [id number] XR FLUORO FOR SPINE INJ 58382 (Continued) Orig Print D/T: S: 07/17/19 21 (541) [facility] [place] NAME: JUDY MARIA [address] [facility] PHYS: Chai Cox MD [place], [place] [address] : 1950 AGE: 69 SEX: M LOC: MARY ELLEN PHONE #: [phone] EXAM DATE: 07/16/2020 STATUS: REG SD FAX #: [phone] RAD #: D/C DT PAGE 3 Signed NhngisAQECRY1429-84-48 12:52:00* Test Item Value Reference Range Interpretation Comme nts GLUBED (test code = GLUBED) 114 mg/dL 60-125 N [id number] 10:53:00* Test Item Value Reference Range Interpretation Comme nts GLUBED (test code = GLUBED) 122 mg/dL 60-125 N - XR FLUORO FOR SPINE [id number] 20:14:00 [facility] 1950 Sex: M Patient Name: JUDY MARIA Unit No: [id number] EXAMS: CPT CODE: [id number] XR FLUORO FOR SPINE INJ 65971 LUMBAR EPIRADICULAR INJECTION REFERRAL PHYSICIAN: None PREOPERATIVE DIAGNOSIS: Lumbar Disc Degeneration and Radiculitis POSTOPERATIVE DIAGNOSIS: L4-5 disc degeneration with radiculitis PROCEDURES PERFORMED: Fluoroscopically guided needle localization of the right L4 spinal nerve with tr ansforaminal epidurogram and epidural injection of local anesthetic and steroid. FINDINGS: And infraneural approach was taken. Moderate to marked loss of disc space height is seen at L4-5 with diffuse annular degeneration. Provocation was negative. Anesthetic response was positive with the patient noting a moderate to marked reduction of his low back pain. Preinjection VAS 5/10. Postinjection VAS 2/10. Steroid response pending follow-up. ESTIMATED BLOOD LOSS: Minimal ANESTHESIA: TIVA COMPLICATIONS: None DETAILS OF PROCEDURE: After obtaining stable vital signs, informed consent and IV access, with no contraindications, the patient was taken to the operating room and placed in a prone position with all extremities padded and appropriate monitors placed. The patient was sterilely prepped anddraped over the lumbosacral spine. Using fluoroscopic visualization the insertion site was marked for a paravertebral approach and using standard technique, a 25 gauge needle was advanced to the baseof the superior pedicle without paresthesias. Isovue-300 contrast 0.2 mL of was injected incrementally with frequent negative aspirations to produce the epidurogram. There were no signs of intravascular or intrathecal uptake. Intradiscal uptake was seen. Bupivicaine 0.75% 0.25 mL with lidocaine 4% 0.25 mL and triamcinolone 30 mg with kefzol (100 mg/ml) 0.2 ml was then incrementally injected with frequent negative aspirations and again there were no signs of intravascular or intrathecal uptake. The needles were removed and the patient was taken to the PACU in good condition. Image: Image 1 Image: Image 2 at 2014 Reported and signed by: Chai Null M.D. [facility] NAME: GUILLEJUDY SUZI [address] [facility] PHYS: Chai Cox MD [place], [place] [address] : 1950 AGE: 69 SEX: M LOC: JayJUMANA PHONE #: [phone] EXAM DATE: 07/02/2020 STATUS: REG [facility] FAX #: [phone] RAD #: D/C DT PAGE 1 Signed Report (CONTINUED) Patient Name: JUDY MARIA SUZI Unit No: [id number] EXAMS: CPT CODE: [id number] XR FLUORO FOR SPINE INJ 69471 (Continued) CC: Technologist: Kelly Mckinnon(R) Transcribed D/ (2013) [facility]: JUDY MARIA SUZI [address] PHYS: Chai Cox MD [place], [place] [address] : 1950 AGE: 69 SEX: M LOC: MARY ELLEN PHONE #: [phone] EXAM DATE: 07/02/2020 STATUS: REG [facility] [facility] FAX #: [phone] RAD #: D/C DT PAGE 2 Signed Report Patient Name: JUDY MARIA Unit No: [id number] EXAMS: CPT CODE: [id number] XR FLUORO FOR SPINE INJ 83824 (Continued) Orig Print D/T: S: 07/02/2020 (2017) [facility] NAME: JUDY MARIA[address] [facility] PHYS: Chai Cox MD [place], [place] [address] : 1950 AGE: 69 SEX: M LOC: [facility] PHONE #: [phone] EXAM DATE: 07/02/2020 STATUS: REG SD FAX#: [phone] RAD #: D/C DT PAGE 3 Signed EupnksGXCWQZ2003-09-04 13:12:00* Test Item Value Reference Range Interpretation Comme nts GLUBED (test code = GLUBED) 115 mg/dL 60-125 N [id number] 11:17:00* Test Item Value Reference Range Interpretation Comme nts GLUBED (test code = GLUBED) 138 mg/dL 60-125 H Notes Date/Time Note Provider Source 2022-10-04 11:44:00 [id number]/ [id number] frtmWqHWq2tibXjdSyXAA3tJBPs8638-73-90M98:44:00 [facility] ([facility])EMERGENCY PROVIDER REPORTREPORT#:[id number] REPORT STATUS: SignedDATE:10/04/22 TIME: 1144 PATIENT: JUDY MARIA UNIT #: [id number]#: [id number] ROOM/BED:AGE: 72 SEX: M PCP PHYS: Chai Null MDSERVICE AUTHOR: Alfredo Mtz MD * ALL edits or amendments must be made on the electronic/computer document * HPI-General Illness Free Text HPI NotesFree Text HPI Utjyg24-qrwj-zde male, history of coronary disease, hypertension. Patient had a recent left heart cath with PCI and drug-eluting stent to proximal LAD, done on the . Since, patient has been able to see cardiology, especially secondary to his right upper extremity bruising and swelling. They did a Doppler in the office which was noted to be normal. Patient was worried given increasing pain in the right upper extremity. GeneralInitial Greet Date/Time 10/04/22 1111 PresentationChief Complaint RUE pain Review of Systems Review of SystemsMusculoskeletalReports: Extremity pain, Extremity swelling. SkinReports: Contusion. Past Medical History - AdultStated Complaint RIGHT ARM PAIN AND BRUISING S/P CARDIAC STENAllergiesCoded Allergies:No Known Allergies (09/25/22) Home MedicationsActive ScriptsTICAGRELOR (BRILINTA) 90 MG PO BID 30 Days #60 TABS Ref 3 Prov: 09/29/22ATORVASTATIN (LIPITOR) 40 MG PO BEDTIME 90 Days #90 TABS Ref 3 Prov: 09/29/22 Reported MedicationsSOTALOL (BETAPACE) 80 MG PO BID CHOLECALCIFEROL (VITAMIN D3) (VITAMIN D3) 5,000 UNITS PO DAILY GLIMEPIRIDE (AMARYL) 1 MG PO DAILY [ZINC] 50 MG PO DAILY [AREDS2] GABAPENTIN (NEURONTIN) 300 MG PO BEDTIME TADALAFIL (CIALIS) 5 MG PO BEDTIME [VITAMIN K2] TELMISARTAN (MICARDIS) 80 MG PO DAILY HYDROCHLOROTHIAZIDE (HCTZ) 12.5 MG PO DAILY ASPIRIN EC (ECOTRIN) 81 MG PO DAILY MAGNESIUM 250 MG PO DAILY CYANOCOBALAMIN (VITAMIN B-12) 1,000 MCG PO DAILY MULTIVITAMIN (MULTIPLE VITAMIN) 1 TAB PO DAILY FENOFIBRATE 145 MG PO DAILY UBIDECARENONE (CO Q-10) 200 MG PO DAILY OMEPRAZOLE DR (OMEPRAZOLE) 20 MG PO DAILY Past Medical History:Reports: Cancer (PROSTATE). Additional Medical HistoryPROSTATE CA DDD L SPINE LOW BACK PAINFamily History:Denies: CAD < 40 yrs old. Alcohol Use Denies EtOH useDrug Use Denies recreational drugsSmoking status for patients 13 years old or older: Never Smoker Physical Exam Vital SignsVital SignsFirst Documented: Result Date Time Pulse Ox 95 / 1115 B/P 118/60 /16 1115 B/P Mean 79 /16 1115 O2 Delivery Room air 10/04 1115 Temp 36.6 / 1115 Pulse 60 10/04 1115 Resp 18 10/04 1115 Last Documented: Result Date Time Pulse Ox 95 10/04 1115 B/P 118/60 /16 1115 B/P Mean 79 10/04 1115 O2 Delivery Room air 10/04 1115 Temp 36.6 / 1115 Pulse 60 / 1115 Resp 18 10/04 1115 Review of Vital Signs Reviewed Physical ExamGeneral/Const General/Const Awake, Alert, Well appearingResp/Chest Respiratory/Chest Breath sounds NL, Breath sounds = bilat, No respiratory distress, No rales, No rhonchi, No wheezingCardiovascular Cardiovascular Heart rate NL, Regular rhythm, Heart sounds NL, Cap refill notdelayed, Peripheral circulation NLAbdomen/GI Abdomen/GI Soft, Non-tender, No guarding, No reboundMS Upper Extrem Text/Dict NotesBruising to right upper extremity forearm and bicep. The discoloration ranges from dark purpleish to manager restaurant yellow and brown. Right upper extremity neurovascular intact with good range of motion and finger function. Compartments, especially forearm and bicep soft.Neurologic Neurologic Oriented X3, Speech NL, No motor deficits, No sensory deficits Re-Evaluation MDM Free Text MDM NotesFree Text MDM Iyisf26-ngzk-kyj male, bruising status post cath-Patient already had a interim ultrasound to rule out pseudoaneurysm which was negative. Worried about the continued bruising, swelling and pain.-Here, compartments soft, doubt compartment syndrome, neurovascular intact in hand. Patient does have follow-up to cardiology in the next few days as well. Will discharge Patient Discharge Departure Vital Signs/ConditionVital SignsFirst Documented: Result Date Time Pulse Ox 95 07/16 1115 B/P 118/60 /16 1115 B/P Mean 79 /16 1115 O2 Delivery Room air 10/04 1115 Temp 36.6 10/04 1115 Pulse 60 / 1115 Resp 18 10/04 1115 Last Documented: Result Date Time Pulse Ox 95 10/04 111 B/P 118/60 10/04 1115 B/P Mean 79 10/04 111 O2 Delivery Room air 10/04 111 Temp 36.6 10/04 111 Pulse 60 10/04 1115 Resp 18 10/04 111 All vital signs available at the time of this entry have been reviewed. Clinical ImpressionClinical ImpressionPrimary Impression: HematomaSecondary Impressions: Arm pain, Bruising Disposition DecisionDischarge )( Discharged to Home Yes )( Time 1144 )( Date 10/04/22 Discharge/Care PlanPatient Instructions ED Cardiac Cath Post Bleed, ED HematomaAdditional InstructionsYou were seen in the ER with arm pain and swelling after a procedure. Given that you had a normal Doppler ultrasound, and was evaluated by the border police,I doubt that there remains any vascular injury or abnormality, especially pseudoaneurysm. In addition, feeling the compartments of the forearm, these still remain soft. Please continue to observe and monitor at this time, follow-up closely with your specialist. If the compartments are become hard, you have pain out of proportion, or any weakness or numbness, please return as these are signs and symptoms concerning for compartment syndrome. at 1424RPT #:[id number] OF REPORTEDEmergen department dbzjve9229-23-74J42:44:00G.[id number] ilable for patient ktjyTWOXKELTSUTLKI1009-04-12D25:24:51 [facility] 2022-09-30 14:55:00 [id number] RyNclNKA4LcnP2DNjWiyJt74z281575-41-90V25:55:00 [facility] ([facility])Discharge SummaryREPORT#:[id number] REPORT STATUS: SignedDATE:09/30/22 TIME: 1455 PATIENT: JUDY MARIA UNIT #: [id number]#: [id number] ROOM[facility]BED: [facility]DOB: [birth year] AGE: 72 SEX: M ATTEND: Omid Nagel DOADM AUTHOR: Omid Nagel DO * ALL edits or amendments must be made on the electronic/computer document * PCP PCPDischarge to: home General InformationProblem List/A P: 1. Hematoma of arm 2. CAD (coronary artery disease) 3. Low back pain 4. HTN (hypertension) 5. DM2 (diabetes mellitus, type 2) 6. Prostate CA Date of admission:Observation Start Date: 09/29/22Date of admission: 09/29/22 Discharge date: 09/30/22Admission diagnosis:CADR FOREARM HEMATOMAHTNPROSTATE CADischarge diagnosis:CADR FOREARM HEMATOMAHTNPROSTATE CAHospital course:72-year-old male with past medical history of hypertension, hyperlipidemia, coronary artery disease status post CABG, who is being admitted after undergoingPCI of proximal LAD with synergy drug-eluting stent. Patient per record reportedly had positive stress test and dyspnea on exertion. He was recommendedto undergo cardiac catheterization. 1. Coronary artery disease-Status post PCI to LAD with stent placement-Continue aspirin and Brilinta-Continue Lipitor-Monitored for chest pains 2. Right forearm hematoma-Resulting right radial artery access for cardiac catheterization-Pressure dressing as recommended by cardiology-Check right upper extremity arterial Doppler-pt and to Monitor right forearm girth for possibility of compression syndrome- diffuse ecchymoses of R forearm 3. Hypertension-Continue BP meds and titrate as necessary to control blood pressure 4. Prostate cancer-Patient's reports patient is following outpatient regarding this.-Monitor for urine retention. D/W AND pt in details Consultants: cardiology Med Rec Med RecDischarge meds:Continue taking these medications:TELMISARTAN (MICARDIS) 80 MG TAB 80 MILLIGRAM ORAL DAILY. SOTALOL (BETAPACE) 80 MG TAB 80 MILLIGRAM ORAL TWICE DAILY. HYDROCHLOROTHIAZIDE (HCTZ) 12.5 MG CAP 12.5 MILLIGRAM ORAL DAILY. ASPIRIN EC (ECOTRIN) 81 MG TAB.EC 81 MILLIGRAM ORAL DAILY. MAGNESIUM (MAGNESIUM) 30 MG TAB 250 MILLIGRAM ORAL DAILY. CYANOCOBALAMIN (VITAMIN B-12) 1,000 MCG TAB 1,000 MICROGRAM ORAL DAILY. CHOLECALCIFEROL (VITAMIN D3) (VITAMIN D3) 125 MCG (5,000 UNIT) TAB 5,000 UNITS ORAL DAILY. MULTIVITAMIN (MULTIPLE VITAMIN) 1 TAB TAB 1 TABLET ORAL DAILY. FENOFIBRATE (FENOFIBRATE) 145 MG TAB 145 MILLIGRAM ORAL DAILY. UBIDECARENONE (CO Q-10) 100 MG CAP [address]ILLIGRAM ORAL DA[address]. OMEPRAZOLE [address] (OMEPRAZOLE) 20 MG TAB.DR 20 MILLIGRAM ORAL DAILY. GLIMEPIRIDE (AMARYL) 1 MG TAB 1 MILLIGRAM ORAL DAILY. [ZINC] 50 MILLIGRAM ORAL DAILY. [AREDS2] TWICE DAILY. GABAPENTIN (NEURONTIN) 300 MG CAP 300 MILLIGRAM ORAL BEDTIME. TADALAFIL (CIALIS) 5 MG TAB 5 MILLIGRAM ORAL BEDTIME. [VITAMIN K2] Start taking the following new medications:TICAGRELOR (BRILINTA) 90 MG TAB 90 MILLIGRAM ORAL TWICE DAILY. Days = 30 Qty = 60 Refills = 3 ATORVASTATIN (LIPITOR) 40 MG TAB 40 MILLIGRAM ORAL BEDTIME. Days = 90 Qty = 90 Refills = 3 ObjectiveVS/I OLast Documented: Result Date Time Pulse Ox 97 09/30 1148 B/P 139/64 09/30 1148 B/P Mean 0.0 09/30 1148 O2 Delivery Room air 09/30 1148 Temp 98.6 09/30 1148 Pulse 61 09/30 1148 Resp 20 09/30 1148 24 hour I O ending at 0700: 09/30 0700 09/29 1900 Intake Total 300 Output Total Balance 300 Intake, Oral 300 Number Voids 3 Patient 99 kg Weight Weight Stated/Reported Measurement Method PATIENT WEIGHT: Weight (lb): 218Weight (oz): 4.12Weight (kg): 99.000 General appearance: alert, awake, orientedHead/Eyes: EOMI, PERRLANeck: non-tender, no JVDCardiovascular: regular rate rhythmRespiratory: clear to auscultation, no distressGI: soft, non-tenderExtremities: moves all, r radial pulse intact r foreram girth mildly increased ecchymoses of R forearmNeuro/GARBAGE STOKER: alert, oriented X 3 ResultsFindings/Data:Laboratory Tests: 07/09/30 1147 0801 0757 2227 1507Chemistry Sodium (134 - 147 mEq/L) 143 Potassium (3.4 - 5.0 mEq/L) 3.6 Chloride (100 - 108 mEq/L) 111 H Carbon Dioxide (21 - 33 mEq/l) 26 Anion Gap (0 - 20) 10 BUN (7 - 18 mg/dL) 15 Creatinine (0.6 - 1.3 mg/dL) 0.8 Glomerular Filtr Rate (70 - 80) 94.6 H Glucose (70 - 110 mg/dL) 106 POC Glucose (70 - 110 MG/DL) 123 H 113 H 143 H Calcium (8.0 - 10.5 mg/dL) 8.1Coagulation Activated Coag Time (74 - 137 SEC) 299 HHematology WBC (4.5 - 11.0 x10 3/uL) 7.3 RBC (4.00 - 5.60 x10 6/uL) 3.97 L Hgb (12.5 - 16.9 g/dL) 11.6 L Hct (37.5 - 50.7 %) 35.6 L MCV (81.0 - 99.0 fL) 89.7 MCH (27.0 - 33.0 pg) 29.2 MCHC (33.0 - 37.0 g/dL) 32.6 L RDW (11.5 - 14.5 %) 13.1 Plt Count (150 - 400 x10 3/uL) 198 MPV (7.0 - 9.0 fL) 9.9 H Neut % (Auto) (56.0 - 77.0 %) 73.0 Lymph % (Auto) (14.0 - 32.0 %) 12.5 L Blackford % (Auto) (4.8 - 9.0 %) 9.9 H Eos % (Auto) (0.3 - 3.7 %) 3.6 Baso % (Auto) (0.0 - 2.0 %) 0.5 Neut # (Auto) (2.0 - 7.6 x10 3/uL) 5.32 Lymph # (Auto) (1.0 - 3.8 x10 3/uL) 0.91 L Blackford # (Auto) (0.1 - 0.8 x10 3/uL) 0.72 Eos # (Auto) (0.0 - 0.2 x10 3/uL) 0.26 H Baso # (Auto) (0.0 - 0.2 x10 3/uL) 0.04 Abs Immat Gran (auto) (0.00 - 0.03 0.04 Hx10 3/uL) Add Manual Diff NO Immature Gran % (0.0 - 2.0 %) 0.5 Nucleated RBC % (0 - 0 %) 0.0 Nucleated RBCs # (Man) (0.0 - 0.1 0.00x10 3/uL) Radiology data:Recent Impressions:ULTRASOUND - DUP UE ART UNI/LTD 09/29 2104 Report Impression - Status: SIGNED Entered: 09/29/20222209 IMPRESSION: 1. Unremarkable vasculature. 2. Complex fluid collection of the forearm concerning for hematoma versus abscess. Impression By: TicoAR21 Mellisa Oro M.D Discharge Instructions PCP)( Discharge to: Home/Self Care Discharge InstructionsAdditional Discharge Routines: PCP Follow-Up, Supervisor [employer] Follow-Up)( Diet: Resume Home Diet/Feeds)( Activity: As Tolerated Follow-up AppointmentsPCP follow up: PCP: Chai Null MD PCP follow up timeframe: In 6 days Special instructions:PLEASE CALL TO MAKE APPOINTMENTConsulting provider 1: Provider 1: Scout Forte MD Specialty: CardiologyInterventional Consult follow up timeframe: In 1-2 weeks Special instructions:PLEASE CALL TO MAKE APPOINTMENT Quality: Discharge Advanced Care Plan 65 or OlderDiscussed with: patient Current MedicationsCurrent medication review:I attest that the foregoing medication list in the medical record is true, accurate, and complete to the best of my knowledge. at 1647 RPT #:[id number] OF REPORTDSDischarge exeomli0617-27-67P28:55:00G.[id number] ailable for patient exjkEARFZCNUBDGBGN6228-79-70G61:47:57 [facility] 2022-09-30 09:37:00 [id number] 1/McpO5iJzUmWXG6zn2fJ7f8lgdNP zWE/tktRECnRtRGEuI1bOvFKTNN3627-30-67M60:37:00 [facility] ([facility]ITALCardiology ConsultationREPORT#:[id number] REPORT STATUS: SignedDATE:09/30/22 TIME: 09 PATIENT: JUDY MARIA UNIT #: [id number]#: [id number] [address] [birth year] AGE: 72 SEX: M ATTEND: Omid Nagel DOADM AUTHOR: Dior Holguin * ALL edits or amendments must be made on the electronic/computer document * History of Present Illness HPIRequesting Clinician: Dr. Rosas for consult:CAD s/p PCIChief complaint:Fatigue and chest discomfort.PCP:PCP: Chai Null MD HPI:72-year-old male with medical history of CAD, hypertension, chronic pain who wasbrought in electively and underwent left heart cath and PCI with drug-eluting stent to proximal LAD. The patient developed postprocedural right arm hematoma. He was observed overnight in [facility]. Right forearm ultrasound showed fluid collection in the forearm measuring 8 x 2.6 x 4.8 cm. Noted slight drop in hemoglobin. Preprocedural hemoglobin was 13.5 and it dropped to 11.6. Patient appears stable. No further progression of the hematoma on physical exam. Hx Obtained From Patient, Family History - Adult longitudinalPast medical history:Reports: Cancer (PROSTATE). Additional medical history:PROSTATE CA DDD L SPINE LOW BACK PAINAlcohol use: Denies EtOH useDrug use: Denies recreational drugsSmoking status for patients 13 years old or older: Never SmokerHome medications:Home Medications:SOTALOL (BETAPACE) 80 MG PO BID CHOLECALCIFEROL (VITAMIN D3) (VITAMIN D3) 5,000 UNITS PO DAILY GLIMEPIRIDE (AMARYL) 1 MG PO DAILY [ZINC] 50 MG PO DAILY [AREDS2] GABAPENTIN (NEURONTIN) 300 MG PO BEDTIME TADALAFIL (CIALIS) 5 MG PO BEDTIME [VITAMIN K2] TELMISARTAN (MICARDIS) 80 MG PO DAILY HYDROCHLOROTHIAZIDE (HCTZ) 12.5 MG PO DAILY ASPIRIN EC (ECOTRIN) 81 MG PO DAILY MAGNESIUM 250 MG PO DAILY CYANOCOBALAMIN (VITAMIN B-12) 1,000 MCG PO DAILY MULTIVITAMIN (MULTIPLE VITAMIN) 1 TAB PO DAILY FENOFIBRATE 145 MG PO DAILY UBIDECARENONE (CO Q-10) 200 MG PO DAILY OMEPRAZOLE DR (OMEPRAZOLE) 20 MG PO DAILY TICAGRELOR (BRILINTA) 90 MG PO BID ATORVASTATIN (LIPITOR) 40 MG PO BEDTIME Allergies:Coded Allergies:No Known Allergies (09/25/22) Ambulatory status: Independent Review of SystemsConstitutional:Denies: generalized weakness. Respiratory:Denies: SOB. Cardiovascular:Denies: chest pain, edema. Objective GeneralVS/I O:Vital Signs: Date Time Temp Pulse Resp B/P B/P Pulse O2 O2 Flow FiO2 Mean Ox Delivery Rate 09/30 0804 36.8 60 15 105/64 0.0 97 09/30 0500 54 8 100/56 73 96 09/30 0400 56 10 108/59 79 95 09/30 0300 60 25 123/60 87 09/30 0200 56 17 107/59 77 95 09/30 0100 55 12 106/57 77 96 09/30 0005 37.0 59 17 102/57 0.0 98 09/30 0000 58 10 109/57 77 96 09/29 2300 63 17 122/64 87 96 09/29 2200 61 20 139/67 96 98 09/29 2130 64 14 126/71 91 97 09/29 2100 62 15 133/66 94 97 09/29 2030 60 14 146/68 98 97 09/29 2004 59 15 143/86 105 99 09/29 1932 36.5 60 14 144/68 93 97 09/29 1925 56 16 141/68 98 98 09/29 1549 36.3 55 14 142/80 97 Room air 09/29 1213 36.7 60 16 155/72 95 24 hour I O ending at 0700: 09/30 0700 09/29 1900 Intake Total 300 Output Total Balance 300 Intake, Oral 300 Number Voids 3 Patient 99 kg Weight Weight Stated/Reported Measurement Method PATIENT WEIGHT: Weight (lb): 218Weight (oz): 4.12Weight (kg): 99.000 Medications:Active Meds + DC'd Last 24 HrsAspirin (ASPIRIN) 81 MG DAILY PO Fenofibrate (Fenofibrate) 145 MG DAILY PO Hydrochlorothiazide (hydroCHLOROthiazide) 12.5 MG DAILY PO Losartan Potassium (COZAAR) 100 MG DAILY PO Multivitamins (TAB-A-ZACHARY) 1 TAB DAILY PO Glimepiride (AmaryL) 1 MG C BK PO Pantoprazole (PROTONIX) 40 MG AC BK PO Atorvastatin Calcium (LIPITOR) 40 MG 2100 PO Gabapentin (NEURONTIN) 300 MG BEDTIME PO Insulin Human Lispro (HUMALOG) 0 AC HS SUBQ Sotalol HCl (BETAPACE) 80 MG BID PO Ticagrelor (BRILINTA) 90 MG BID PO Acetaminophen (TYLENOL) 650 MG Q4H PRN PRN PO Hydralazine HCl (APRESOLINE) 10 MG Q6H PRN PRN IV Hydrocodone Bitart/Acetaminophen (NORCO 5/325) 1 TAB Q6H PRN PRN PO Lactulose (LACTULOSE) 20 GM Q6H PRN PRN PO Ondansetron HCl (ZOFRAN) 4 MG Q4H PRN PRN IV Potassium Chloride (POTASSIUM CHLORIDE 20MEQ TAB.ER) 40 MEQ DAILY PRN PRN PO Temazepam (RESTORIL) 15 MG BEDTIME PRN PRN PO Atropine Sulfate (ATROPINE SULFATE 0.1MG/ML SYR) 0.5 MG ASDIR PRN IV Sodium Chloride (SODIUM CHLORIDE 0.9%) 500 ML ASDIR PRN IV Atropine Sulfate (ATROPINE SULFATE 0.1MG/ML SYR) 0.5 MG ASDIR PRN IV Sodium Chloride (SODIUM CHLORIDE 0.9%) 1,000 ML .[id number] ONE IV (DC) Sodium Chloride (SODIUM CHLORIDE 0.9%) 500 ML ASDIR PRN IV Nitroglycerin (NITROSTAT) 0 .STK-MED ONE SL (DC) Heparin Sodium (HEPARIN SODIUM) 0 .STK-MED ONE .ROUTE (DC) Aspirin (ASPIRIN) 0 .STK-MED ONE .ROUTE (DC) Ticagrelor (BRILINTA) 0 .STK-MED ONE .ROUTE (DC) Fentanyl Citrate (SUBLIMAZE) 0 .STK-MED ONE .ROUTE (DC) Midazolam HCl (VERSED) 0 .STK-MED ONE .ROUTE (DC) Heparin Sodium (HEPARIN SODIUM) 0 .STK-MED ONE .ROUTE (DC) Heparin Sodium/Sodium Chloride (HEPARIN 2,000 UNITS/NS 1,000mL) 1,000 ML .STK-MED ONE IV (DC) Heparin Sodium/Sodium Chloride (HEPARIN 1,000 UNITS/NS 500ML) 500 ML .STK-MED ONE IV (DC) Iopamidol (ISOVUE-370 100ML) 0 .STK-MED ONE IV (DC) Nitroglycerin/Dextrose (NITROGLYCERIN 50,000MCG/D5W 250ML) 250 ML .STK-MED ONE IV (DC) Lidocaine HCl (LIDOCAINE HCL/PF) 0 .STK-MED ONE .ROUTE (DC) Verapamil HCl (ISOPTIN) 0 .STK-MED ONE IV (DC) Aspirin (ASPIRIN) 81 MG NOW ONE PO (DC) Aspirin (ASPIRIN) 0 .STK-MED ONE PO (DC) Physical ExamGeneral appearance: alert, awake, orientedNeck: non-tender, no JVDCardiovascular: CV assessment: regular rate and rhythm, BP pulses = bilaterally, normal heart sounds, pedal pulses presentRespiratory: clear to auscultation, no distressAbdomen: soft, non-tender, normal bowel soundsGenitourinary: no flank pain, no urinary catheterUpper extremity: Right radial site: ecchymosis, hematomaLower extremity: LE assessment: normal capillary refill, no edemaMusculoskeletal: normal inspectionNeuro/GARBAGE STOKER: alert, oriented X 3Skin: dry, intactPsychiatry: normal affect, normal judgment/insight, normal mood ResultsFindings/Data:Laboratory Tests 09/30 09/30 09/29 09/29 0801 0757 2227 1159 Chemistry Sodium (134 - 147 mEq/L) 143 Potassium (3.4 - 5.0 mEq/L) 3.6 Chloride (100 - 108 mEq/L) 111 H Carbon Dioxide (21 - 33 mEq/l) 26 Anion Gap (0 - 20) 10 BUN (7 - 18 mg/dL) 15 Creatinine (0.6 - 1.3 mg/dL) 0.8 Glomerular Filtr Rate (70 - 80) 94.6 H Glucose (70 - 110 mg/dL) 106 POC Glucose (70 - 110 MG/DL) 113 H 143 H 99 Calcium (8.0 - 10.5 mg/dL) 8.1 Laboratory Tests 09/29 09/29 09/29 1507 1451 1436 Coagulation Activated Coag Time (74 - 137 SEC) 299 H 287 H 281 H Laboratory Tests 09/30 0757 Hematology WBC (4.5 - 11.0 x10 3/uL) 7.3 RBC (4.00 - 5.60 x10 6/uL) 3.97 L Hgb (12.5 - 16.9 g/dL) 11.6 L Hct (37.5 - 50.7 %) 35.6 L MCV (81.0 - 99.0 fL) 89.7 MCH (27.0 - 33.0 pg) 29.2 MCHC (33.0 - 37.0 g/dL) 32.6 L RDW (11.5 - 14.5 %) 13.1 Plt Count (150 - 400 x10 3/uL) 198 MPV (7.0 - 9.0 fL) 9.9 H Neut % (Auto) (56.0 - 77.0 %) 73.0 Lymph % (Auto) (14.0 - 32.0 %) 12.5 L Blackford % (Auto) (4.8 - 9.0 %) 9.9 H Eos % (Auto) (0.3 - 3.7 %) 3.6 Baso % (Auto) (0.0 - 2.0 %) 0.5 Neut # (Auto) (2.0 - 7.6 x10 3/uL) 5.32 Lymph # (Auto) (1.0 - 3.8 x10 3/uL) 0.91 L Blackford # (Auto) (0.1 - 0.8 x10 3/uL) 0.72 Eos # (Auto) (0.0 - 0.2 x10 3/uL) 0.26 H Baso # (Auto) (0.0 - 0.2 x10 3/uL) 0.04 Abs Immat Gran (auto) (0.00 - 0.03 x10 3/uL) 0.04 H Add Manual Diff NO Immature Gran % (0.0 - 2.0 %) 0.5 Nucleated RBC % (0 - 0 %) 0.0 Nucleated RBCs # (Man) (0.0 - 0.1 x10 3/uL) 0.00 Radiology Data:Recent Impressions:ULTRASOUND - DUP UE ART UNI/LTD 09/29 2104 Report Impression - Status: SIGNED Entered: 09/29/20222209 IMPRESSION: 1. Unremarkable vasculature. 2. Complex fluid collection of the forearm concerning for hematoma versus abscess. Impression By: [email or web address] Mellisa Oro M.D Results: labs reviewed, vital signs reviewed, rhythm personally rev'dEKG Interpretation: normal sinus rhythmTelemetry Interpretation:Sinus rhythm Diagnosis, Assessment PlanPlan discussed with: patient, collaborating MD, nurse Free Text DxA P NotesFree Text DxA P Notes:72-year-old male with medical history of CAD, hypertension, chronic pain who wasbrought in electively and underwent left heart cath and PCI with drug-eluting stent to proximal LAD. The patient developed postprocedural right arm hematoma. He was observed overnight in [facility]. Right forearm ultrasound showed fluid collection in the forearm measuring 8 x 2.6 x 4.8 cm. Noted slight drop in hemoglobin. Preprocedural hemoglobin was 13.5 and it dropped to 11.6. Patient appears stable. No further progression of the hematoma on physical exam. 1. CAD s/p PCI/PERNELL to LADcontinue DAPT, BB, statinPrescription for Brilinta and atorvastatin e-prescribedOutpatient follow-up with Dr. Forte next week. 2. Postprocedural right forearm hematomaHemoglobin dropped to 11.6 from 13.5No further progression of hematomaRight radial pulse intact. Okay to discharge home from cardiology.Patient follow-up next week with Dr. Forte.Treatment plan discussed in great detail with patient and family. at 1235 at 1216 RPT #:[id number] OF REPORTOGNymekryfktyj4987-92-87D54:37:00G.PDOC2 2556627-1637FCNhrvnldhl for patient dkfxEMIIDARAIETBNR8110-51-66J05:35:34 [facility] 2022-09-29 17:43:00 [id number] QsbqKxnVdi7ijPGR5hoI1kj2MCOfC ZW8AVnE6LlbmmTeeLPpmHGOm1do2650-24-28R85:43:00 [facility] ([facility])History Physical - AdultREPORT#:[id number] REPORT STATUS: SignedDATE:09/29/22 TIME: 1743 PATIENT: JUDY MARIA UNIT #: [id number]#: [id number] [address] [birth year] AGE: 72 SEX: M ATTEND: Omid Nagel DOADM AUTHOR: Omid Nagel DO * ALL edits or amendments must be made on the electronic/computer document * History of Present Illness HPIChief complaint:Coronary artery diseaseHPI:72-year-old male with past medical history of hypertension, hyperlipidemia, coronary artery disease status post CABG, who is being admitted after undergoingPCI of proximal LAD with synergy drug-eluting stent. Patient per record reportedly had positive stress test and dyspnea on exertion. He was recommendedto undergo cardiac catheterization. Post catheterization patient reportedly had bleeding from the right wrist as theright radial artery was accessed for the catheterization procedure. Patient underwent pressure application and had moderate swelling of the right forearm. Patient being admitted for further monitoring. He denies any chest pain or shortness of breath. HistoryPast medical history:Reports: Cancer (PROSTATE). Additional medical history:PROSTATE CADDD L SPINELOW BACK PAINFamily history:Denies: CAD < 40 yrs old. Alcohol use: Denies EtOH useDrug use: Denies recreational drugsSmoking status for patients 13 years old or older: Never Smoker Medication/Allergy-Vaccine HxAllergies:Coded Allergies:No Known Allergies (09/25/22) Review of SystemsAll systems rev neg: except as marked Physical ExamVS/I OVital Signs: Date Time Temp Pulse Resp B/P B/P Pulse O2 O2 Flow FiO2 Mean Ox Delivery Rate 09/29 1549 97.4 55 14 142/80 97 Room air 09/29 1213 98.0 60 16 155/72 95 PATIENT WEIGHT: Weight (lb): 218Weight (oz): 4.12Weight (kg): 99.000 General appearance: alert, awake, orientedHead/Eyes: EOMI, PERRLANeck: non-tender, no JVDCardiovascular: regular rate rhythm ResultsFindings/Data:Laboratory Tests: 09/29 09/29 09/29 09/29 1507 1451 1436 1159 Chemistry POC Glucose (70 - 110 MG/DL) 99 Coagulation Activated Coag Time (74 - 137 SEC) 299 H 287 H 281 H Diagnosis, Assessment PlanProblem List/A P: 1. Hematoma of arm 2. CAD (coronary artery disease) 3. Low back pain 4. HTN (hypertension) 5. DM2 (diabetes mellitus, type 2) 6. Prostate CA Consultants: cardiology Free Text DxA P NotesFree Text DxA P Notes:72-year-old male with past medical history of hypertension, hyperlipidemia, coronary artery disease status post CABG, who is being admitted after undergoingPCI of proximal LAD with synergy drug-eluting stent. Patient per record reportedly had positive stress test and dyspnea on exertion. He was recommendedto undergo cardiac catheterization. 1. Coronary artery disease-Status post PCI to LAD with stent placement-Continue aspirin and Brilinta-Continue Lipitor-Monitor for chest pains 2. Right forearm hematoma-Resulting right radial artery access for cardiac catheterization-Pressure dressing as recommended by cardiology-Check right upper extremity arterial Doppler-Monitor right forearm girth for possibility of compression syndrome 3. Hypertension-Continue BP meds and titrate as necessary to control blood pressure 4. Prostate cancer-Patient's reports patient is following outpatient regarding this.-Monitor for urine retention. Quality: Gen Med Crit Care Current MedicationsCurrent medication review:I attest that the foregoing medication list in the medical record is true, accurate, and complete to the best of my knowledge. Advanced Care Plan 65 or OlderDiscussed with: patientDiscussion included: code status at 1647 RPT #:[id number] OF REPORTHPHistory and physical tukyvbfmgbb2776-93-64V25:43:00G.[id number] AVAvailable for patient wiimHCMKWWJQKUIJOQ0589-36-86Z36:47:57 [facility] 2022-09-29 16:10:00 [id number] cZQl6Xqy1iKFR522U3VqcYa1kys6330-22-01J63:10:12086 1-[address] [address] PATIENT NAME: JUDY MARIA ADMIT DATE: 09/29/22ACCOUNT NO: [id number] ROOM NO: [facility] AGE: 72 REPORT TYPE: CARDIAC CATHETERIZATION REPORT SEX: M ADMITTING PHYSICIAN:Omid Nagel DO ATTENDING PHYSICIAN:Omid Nagel DO PROCEDURE DATE: 09/29/2022 PROCEDURE PERFORMED:1. Selective coronary angiogram.2. CSI atherectomy of proximal LAD severe stenosis followed by PCI using a 3.0 x 12 mm Synergy drug-eluting stent. INDICATION: Severe coronary artery disease with chest pain. ACCESS: Right radial artery 6-Pu[place], was closed with TR band. COMPLICATIONS: None. BLEEDING: Less than 50 mL TOTAL SEDATION TIME: 1 hour. DESCRIPTION OF PROCEDURE: After risks, benefits and alternatives were explained, the patient agreed to proceed and signed informed consent. The patient was brought into cardiac catheterization laboratory, prepped and draped in sterile fashion. Then, I accessed right radial artery using pediatric micropuncture kit, placed a 6-[place] slender sheath, took a 6-[place] EBU 3.5 guide into the aortic root, engaged the left main, took standard views and then I took the Viper wire into the left main, then LAD, placed distally and then didCSI atherectomy at low and high speed to the proximal LAD and then dilated usinga 3.0 x 12 mm compliant balloon to high pressure. Subsequently, I placed 3.0 x 12 mm Synergy drug-eluting stent. Excellent expansion and good angiographic results. Then, I removed the wire and took final angiogram that was satisfactory and removed the guide, removed the sheath, placed TR band with goodhemostasis. The patient was given heparin at the beginning of the procedure to assure ACT level above 250 throughout the procedure and also was loaded with Brilinta and aspirin. FINDINGS:1. Left main: Large and normal.2. LAD proximal 90% stenosis, heavily calcified, status post CSI atherectomy followed by stent placement as outlined above.3. Left circumflex small nondominant, which has an SVG graft known to be patent. CONCLUSION: Severe proximal left anterior descending stenosis, status post successful PCI as above. PATIENT NAME: JUDY MARIA PLAN: Aspirin, Brilinta, and statin and follow up with me in the office in 1 week post-discharge. Dictated By: Scout Forte MD Date Dictated: 09/29/2022 16:10:45Date Transcribed: 09/29/2022 17:47:46SR/PRAEnriquetab #: [id number] ID: [id number] by Scout Forte MD On 12/09/2022 08:49:02 AM at 0849 PATIENT NAME: JUDY MARIA [id number]:47:00G.[id number] ble for patient rlqiRPMGMWDDTCGLDY1007-35-00T98:49:30 [facility] 2022-09-29 15:34:00 [id number] p[id number]:34:82701 1-[address] [place] [address] PATIENT NAME: JUDY MARIA ADMIT DATE: 09/29/22ACCOUNT NO: [id number] ROOM NO: [id number] AGE: 72 REPORT TYPE: eELECTROCARDIOGRAM REPORT SEX: M ADMITTING PHYSICIAN:Omid Nagel DO ATTENDING PHYSICIAN:Omid Nagel DO Order:[id number] Reason : S/P PCI Test Date/Time Stamp:WedSep 29 2022 15:34:04Blood Pressure : / mmHGVent. Rate : 053 BPM Atrial Rate : 053 BPM P-R Int : 240 ms QRS Dur : 106 ms QT Int : 496 ms P-R-T Axes : 028 -05 -07 degrees QTc Int : 465 ms Sinus bradycardia with 1st degree AV block with premature atrial complexesCannot rule out Inferior infarct , age undeterminedAbnormal ECGWhen compared with ECG of 25-SEP-2022 16:07,No changesConfirmed by MD AGUILERA GERARD ([id number]) on 09/29/2022 9:07:27 PM Referred By: Scout Forte Confirmed by:MERLINE AGUILERA MD at 2107 PATIENT NAME: JUDY MARIA .[id number] AVAvailable for patient lnazDYNCWRCHUWCHVQ1202-02-96P50:07:55 [facility] 2022-09-25 16:07:00 [id number] 6t[id number]:07:[id number] [address] [place] [address] PATIENT NAME: JUDY MARIA ADMIT DATE: ACCOUNT NO: [id number] ROOM NO: AGE: 72 REPORT TYPE: eELECTROCARDIOGRAM REPORT SEX: M ADMITTING PHYSICIAN: ATTENDING PHYSICIAN:Scout Forte MD Order:[id number] Reason : PREOP Test Date/Time Stamp:WedSep 25 2022 16:07:47Blood Pressure : / mmHGVent. Rate : 066 BPM Atrial Rate : 066 BPM P-R Int : 214 ms QRS Dur : 098 ms QT Int : 426 ms P-R-T Axes : 051 107 016 degrees QTc Int : 446 ms Sinus rhythm with 1st degree AV blockRightward axisIncomplete right bundle branch blockNonspecific T wave abnormalityAbnormal ECGNo previous ECGs availableConfirmed by AMIRA PERKINS MD ([id number]) on 09/25/2022 4:18:07 PM Referred By: Self Referred Confirmed by:AMIRA PERKINS MD at 1618 PATIENT NAME: JUDY MARIA .[id number] AVAvailable for patient drwoFNZLDSYVIBCIYM3229-92-15H90:18:30 [facility]
[2023-07-10 00:14] LABS: Absolute Basophils 0.1 K/uL (0-0.5); Absolute Eosinophils 0.8 K/uL (0-0.5); Absolute Lymphocytes (CBC) 0.6 K/uL (0.7-4.9); Absolute Neutrophil 6.8 K/uL (1.8-8.0); Basophils % 0.6 % (0-1.3); Eosinophils % 8.3 % (0-4.4); Hematocrit 38.1 % (39.6-49.0); Hemoglobin 12.7 g/dL (13.6-17.9); Lymphocytes % 6.5 % (15.3-44.8); MCH 28.7 pg (27.0-35.0); MCHC 33.4 g/dL (32.0-36.0); MCV 85.9 fL (80-100); MPV 7.1 fL (7.6-11.3); Neutrophils % 73.6 % (41.7-73.7); Platelets 325 thou/uL (152-406); RBC Red Blood Cell Count 4.43 M/uL (4.33-5.43); Red Cell Distribution Width 13.9 % (12.1-15.2)
[2023-07-10 00:20] LABS: PT Prothrombin Time 13.5 SECONDS (9.5-12.5); Protime INR 1.23
[2023-07-10 00:36] LABS: Albumin 3.1 g/dL (3.4-5.0); Albumin/Globulin Ratio 0.7 (1.1-1.8); Anion Gap 10.8 mEq/L (5.0-15.0); Bilirubin Direct 0.2 mg/dL (0-0.2); Bilirubin Indirect, Calculated 0.4 mg/dL (0.2-0.8); Bilirubin Total 0.6 mg/dL (0.2-1.0); Globulin 4.6 g/dL (2.3-3.5); Magnesium 1.9 mg/dL (1.6-2.4); Potassium 3.8 mEq/L (3.5-5.1); Protein, Total 7.7 g/dL (6.4-8.2); Troponin High Sensitivity 28.1 pg/mL (<58.9)
--- NOTE | 2023-07-10 00:50 | EDPHYS ---
Physician Documentation [facility] Name: Ruddy Tavarez Age: 72 yrs Sex: Male : 1950 Arrival Date: 07/09/2023 Time: 23:48 Bed 15 Private MD: ED Physician Stas Ray HPI: 07/09 00:04 This 72 yrs old Male presents to ER via EMS with complaints of Chest Pain. sb4 00:04 burning chest pain began this evening. worse with exertion, improves with rest. took sb4 tums without relief. has history of CAD s/p CABG in 2007, LAD stent < 1 year ago. saw high climber last week. on brilinta, currently undergoing radiation treatment for prostate cancer. EMS reported afib on monitor, no known history of afib. Historical: - Allergies: 00:00 No Known Allergies; ha1 - PMHx: 00:00 Chronic systolic heart failure; Myocardial infarction; ha1 00:06 prostate cancer; ha1 - PSHx: 00:00 cardiac stents x 5; ha1 - Immunization history:: Adult Immunizations up to date. - Infectious Disease History:: Denies. - Social history:: Smoking status: Patient denies any tobacco usage or history of. ROS: 00:04 Constitutional: Negative for fever, chills, and weight loss, sb4 00:04 Cardiovascular: Positive for chest pain, 00:04 All other systems are negative, Exam: 00:04 Constitutional: This is a well developed, well nourished patient who is awake, alert, sb4 and in no acute distress. Head/Face: Normocephalic, atraumatic. Eyes: Extra-ocular motions intact. Periorbital areas with no swelling, redness, or edema. ENT: Mucous membranes moist. Respiratory: Lungs have equal breath sounds bilaterally, clear to auscultation and percussion. No rales, rhonchi or wheezes noted. No increased work of breathing, no retractions or nasal flaring. Abdomen/GI: Soft, non-tender, no distension. Skin: Warm, dry with normal turgor. Normal color with no rashes, no lesions, and no evidence of cellulitis. MS/ Extremity: Pulses equal, no cyanosis. Neurovascular intact. Full, normal range of motion. Neuro: Awake and alert, GCS 15, oriented to person, place, time, and situation. Motor strength 5/5 in all extremities. Sensory grossly intact. 00:04 Cardiovascular: Rate: tachycardic, Rhythm: irregularly irregular, Pulses: no pulse deficits are appreciated, Vital Signs: 07/08 23:52 BP 105 / 78; Pulse 113; Resp 17 S; Temp 97.9; Pulse Ox 94% on R/A; Weight 95.25 kg; ha1 Height 5 ft. 10 in. ; 07/09 00:45 BP 101 / 57; Pulse 106; Pulse Ox 94% on R/A; tm6 07/08 23:52 Body Mass Index 30.13 (95.25 kg, 177.8 cm) ha1 MDM: 07/08 23:52 Patient medically screened. sb4 07/09 00:48 Data reviewed: vital signs, nurses notes, EMS record, lab test result(s), EKG, sb4 radiologic studies, and as a result, I will admit patient. Consideration of Admission/Observation Patient was admitted/placed on observation. Counseling: I had a detailed discussion with the patient and/or guardian regarding the historical points, exam findings, and any diagnostic results supporting the discharge/admit diagnosis, lab results, radiology results, the need for further work-up and treatment in the hospital. 07/09 00:01 Order name: Basic Metabolic Panel; Complete Time: 00:39 sb4 07/09 00:01 Order name: CBC with Diff; Complete Time: 00:19 sb4 07/09 00:01 Order name: LFT's; Complete Time: 00:39 sb4 07/09 00:01 Order name: Magnesium; Complete Time: 00:39 sb4 07/09 00:01 Order name: NT PRO-BNP; Complete Time: 00:39 sb4 07/09 00:01 Order name: PT-INR; Complete Time: 00:21 sb4 07/09 00:01 Order name: Troponin HS; Complete Time: 00:39 sb4 07/09 02:47 Order name: Urinalysis w/ reflexes EDMS 07/09 02:47 Order name: Basic Metabolic Panel EDMS 07/09 02:47 Order name: Basic Metabolic Panel EDMS 07/09 02:47 Order name: CBC with Automated Diff EDMS 07/09 02:47 Order name: CBC with Automated Diff EDMS 07/09 02:47 Order name: Troponin High Sensitivity EDMS 07/09 02:47 Order name: Troponin High Sensitivity EDOR 07/09 02:47 Order name: Troponin High Sensitivity EDOR 07/09 02:47 Order name: Troponin High Sensitivity EDOR 07/09 00:01 Order name: XRAY Chest (1 view) sb4 07/09 01:02 Order name: Chest For Pe Angio EDOR 07/09 02:47 Order name: CONS Physician Consult EDOR 07/09 00:01 Order name: Cardiac monitoring; Complete Time: 00:04 sb4 07/09 00:01 Order name: EKG - Nurse/Tech; Complete Time: 00:04 sb4 07/09 00:01 Order name: IV Saline Lock; Complete Time: 00:04 sb4 07/09 00:01 Order name: Labs collected and sent; Complete Time: 00:06 sb4 07/09 00:01 Order name: O2 Per Protocol; Complete Time: 00:04 sb4 07/09 00:01 Order name: O2 Sat Monitoring; Complete Time: 00:04 sb4 EC:07 Rate is 103 beats/min. Rhythm is irregularly irregular, A fib. QRS interval is normal sb4 at 94 msec. QT interval is normal at 360 msec. No Q waves. T waves are Normal. No ST changes noted. Clinical impression: Atrial Fibrillation. Interpreted by me. Reviewed by me. Administered Medications: No medications were administered Disposition Summary: 07/10/23 00:49 Hospitalization Ordered Notes: Hospitalization Status: Inpatient Admission sb4 Provider: Dashawn Barillas sb4 Condition: Fair sb4 Problem: new sb4 Symptoms: are unchanged sb4 Bed/Room Type: Standard sb4 Location: Telemetry/MedSurg (Inpatient)(07/10/23 07:57) eb Room Assignment: 414(07/10/23 07:57) eb Diagnosis - atrial fibrillation, new onset sb4 - Chest pain, unspecified sb4 Forms: - Medication Reconciliation Form sb4 - SBAR form sb4 - Leadership Thank You Letter sb4 Signatures: Dispatcher [employer] EDManuel Mahmood RN RN jb4 Jinny Guzmán Heidy, RN RN ha1 Jodi Urbina PALiss PAMellisaC sb4 Corrections: (The following items were deleted from the chart) 00:02 00:01 BASIC METABOLIC PANEL+C.LAB.BRZ ordered. EDMS EDMS 00:02 00:01 CBC+H.LAB.BRZ ordered. EDMS EDMS 00:02 00:01 HEPATIC FUNCTION+C.LAB.BRZ ordered. EDMS EDMS 00:02 00:01 MAGNESIUM+C.LAB.BRZ ordered. EDMS EDMS 00:02 00:01 PROBNP+C.LAB.BRZ ordered. EDMS EDMS 00:02 00:01 PROTIME (+INR)+COAG.LAB.BRZ ordered. EDMS EDMS 00:02 00:01 Troponin High Sensitivity+C.LAB.BRZ ordered. EDMS EDMS 00:02 00:02 Chest Single View+RAD.RAD.BRZ ordered. EDMS EDMS 00:03 00:00 PMHx: Myocardial infarction; X 2; ha1 ha1 01:23 00:49 Telemetry/MedSurg (Inpatient) sb4 jb4 01:23 00:49 sb4 jb4 07:57 01:23 [facility] ER HOLD jb4 eb 07:57 01:23 ERHOLD- jb4 eb
--- NOTE | 2023-07-10 00:50 | ER ---
Nurse's Notes [facility] Name: Ruddy Tavarez Age: 72 yrs Sex: Male : 1950 Arrival Date: 07/09/2023 Time: 23:48 Bed 15 Private MD: Diagnosis: atrial fibrillation, new onset;Chest pain, unspecified Presentation: 07/08 23:52 Chief complaint: EMS states: 72 year old male reports having chest pain that started 2 ha1 hours ago. Afib on the 12 lead ECG. 23:52 Coronavirus screen: Vaccine status: Patient reports receiving the 2nd dose of the covid ha1 vaccine. Moderna. Ebola Screen: No symptoms or risks identified at this time. Initial Sepsis Screen: Does the patient meet any 2 criteria? No. Patient's initial sepsis screen is negative. Does the patient have a suspected source of infection? No. Patient's initial sepsis screen is negative. Risk Assessment: Do you want to hurt yourself or someone else? Patient reports no desire to harm self or others. Onset of symptoms was July 10, 2023. 23:52 Method Of Arrival: EMS: [facility] ha1 23:52 Acuity: BELLO 2 ha1 Triage Assessment: 23:52 General: Appears comfortable, Behavior is calm, cooperative. Pain: Complains of pain in ha1 chest Pain does not radiate. Pain currently is 2 out of 10 on a pain scale. at worst was 7 out of 10 on a pain scale. Quality of pain is described as Pain began suddenly, 2 hours ago. Neuro: Level of Consciousness is awake, alert, obeys commands, Oriented to person, place, time, situation. Cardiovascular: Capillary refill < 3 seconds Patient's skin is warm and dry. Respiratory: Airway is patent Respiratory effort is even, unlabored, Respiratory pattern is regular, symmetrical. GI: No signs and/or symptoms were reported involving the gastrointestinal system. Abdomen is round non-distended. : Reports under chemotherapy due to prostate cancer. Derm: Skin is pink, warm \T\ dry. Musculoskeletal: Circulation, motion, and sensation intact. Range of motion: intact in all extremities. Historical: - Allergies: 07/09 00:00 No Known Allergies; ha1 - PMHx: 00:00 Chronic systolic heart failure; Myocardial infarction; ha1 00:06 prostate cancer; ha1 - PSHx: 00:00 cardiac stents x 5; ha1 - Immunization history:: Adult Immunizations up to date. - Infectious Disease History:: Denies. - Social history:: Smoking status: Patient denies any tobacco usage or history of. Screenin/19 23:58 [facility] ED Fall Risk Assessment (Adult) History of falling in the last 3 months, tm6 including since admission No falls in past 3 months (0 pts) Confusion or Disorientation No (0 pts) Intoxicated or Sedated No (0 pts) Impaired Gait No (0 pts) Mobility Assist Device Used No (0 pt) Altered Elimination No (0 pt) Score/Fall Risk Level 0 - 2 = Low Risk Oriented to surroundings, Maintained a safe environment. Abuse screen: Denies threats or abuse. Denies injuries from another. Nutritional screening: No deficits noted. Tuberculosis screening: No symptoms or risk factors identified. Assessment: 23:52 Reassessment: see triage assessment. [facility] 07/09 00:45 Reassessment: Patient and/or family updated on plan of care and expected duration. Pain tm6 level reassessed. Patient is alert, oriented x 3, equal unlabored respirations, skin warm/dry/pink. Vital Signs: 07/08 23:52 BP 105 / 78; Pulse 113; Resp 17 S; Temp 97.9; Pulse Ox 94% on R/A; Weight 95.25 kg; [facility] Height 5 ft. 10 in. ; 07/09 00:45 BP 101 / 57; Pulse 106; Pulse Ox 94% on R/A; tm6 07/08 23:52 Body Mass Index 30.13 (95.25 kg, 177.8 cm) [facility] ED Course: 07/08 23:52 Patient arrived in ED. sb4 23:52 Jodi Urbina PA-C is PHCP. sb4 23:52 Stas Ray MD is Attending Physician. sb4 23:53 Arm band placed on right wrist. EKG completed in triage. Results shown to MD. ha1 23:58 Patient has correct armband on for positive identification. Placed in gown. Bed in low tm6 position. Call light in reach. Side rails up X2. Provided Education on: plan of care. Client placed on continuous cardiac and pulse oximetry monitoring. NIBP monitoring applied. software quality engineer on. Pulse ox on. NIBP on. Door closed. Noise minimized. 23:58 EKG done, by ED staff, reviewed by Jodi Urbina PA-C. Maintain EMS IV. Dressing intact. tm6 Good blood return noted. Site clean \T\ dry. Gauge \T\ site: 20g LAC. IV is patent, O2 via room air. 07/09 00:00 Triage completed. ha1 00:06 Basic Metabolic Panel Sent. tm6 00:06 CBC with Diff Sent. tm6 00:06 LFT's Sent. tm6 00:06 Magnesium Sent. tm6 00:06 NT PRO-BNP Sent. tm6 00:06 PT-INR Sent. tm6 00:06 Troponin HS Sent. tm6 00:16 XRAY Chest (1 view) In Process Unspecified. EDMS 00:45 Minh Gilmore RN is Primary Nurse. tm6 00:49 Dashawn Barillas MD is Hospitalizing Provider. sb4 01:30 Chest For Pe Angio In Process Unspecified. EDMS 03:12 No provider procedures requiring assistance completed. km8 06:20 Stas Ray MD is Attending Physician. ec2 08:03 Diet tray ordered. jg11 Administered Medications: No medications were administered Medication: 07/08 23:58 VIS not applicable for this client. tm6 Outcome: 07/09 00:49 Decision to Hospitalize by Provider. sb4 03:12 Admitted to ER Hold. Please see [facility] for further documentation. km8 03:12 Condition: stable 03:12 Instructed on the need for admit, Demonstrated understanding of instructions, 09:16 Patient left the ED. iw Signatures: Dispatcher [employer] Katherine Reddy RN RN iw Pretty Orozco RN RN Jodi Turpin PA-C PA-C sb4 Stas Ray MD MD ec2 Awa Hilliard RN RN Minh Mendez RN RN 6 John Plasencia jg11 Corrections: (The following items were deleted from the chart) 00:03 00:00 PMHx: Myocardial infarction; X 2; ha1 ha1
[2023-07-10] MEDS ORDERED: ONDANSETRON 4 MG/2 ML VIAL IV PRN (02:41)
[2023-07-10] MEDS ORDERED: ACETAMINOPHEN 325 MG TABLET PO PRN (02:41)
--- NOTE | 2023-07-10 02:42 | P.HP ---
Certification for Inpatient Patient admitted to: Observation With expected LOS: <2 Midnights Practitioner: I am a practitioner with admitting privileges, knowledge of patient current condition, hospital course, and medical plan of care. Services: Services provided to patient in accordance with Admission requirements found in Title 42 Section 412.3 of the Code of Federal Regulations Patient History Date of Service: 07/10/23 Reason for admission: Chest Pain History of Present Illness: 72 yrs old Male past medical history of hypertension, hyperlipidemia, CAD status post CABG and stents, chronic systolic heart failure, prostate cancer, brought to ER with chest pain. Pain started earlier this evening, located in retrosternal area, with no radiation. Denies any diaphoresis. Worse with exertion and improves with rest. Denies any shortness of breath. Patient was thinking like gastric upset and took some Tums without much relief. As the patient continues to have chest pain he was brought to ER . He has history of CAD s/p CABG in 2007, LAD stent < 1 year ago. 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 Is still taking aspirin and brilinta, currently undergoing radiation treatment for prostate cancer. He was assessed in the ER and was admitted for further management of unstable angina. EKG did not show any acute ischemic changes but showed atrial fibrillation with rate controlled. Discussed with patient and family family does not think that he has A-fib before even though he is on sotalol for long time. He is not on any anticoagulation at this time. Allergies No Known Allergies Allergy (Verified 04/30/23 08:48) Home medications list reviewed: Yes Home Medications: Aspirin [Low Dose Aspirin EC] 81 mg PO BEDTIME 09/03/22 Cholecalciferol (Vitamin D3) [Vitamin D3] 25 mcg PO DAILY 09/03/22 Fenofibrate [Tricor*] 145 mg PO BEDTIME 09/03/22 Glimepiride 1 mg PO DAILY 09/03/22 Magnesium Oxide [Magnesium] 400 mg PO BID 09/03/22 Omeprazole 20 mg PO DAILY 09/03/22 Sotalol HCl [Betapace*] 80 mg PO BID 09/03/22 Tadalafil [Cialis] 5 mg PO DAILY 09/03/22 Telmisartan [Micardis] 80 mg PO DAILY 09/03/22 Ubidecarenone [Co Q-10] 100 mg PO DAILY 09/03/22 Zinc Gluconate [Zinc] 50 mg PO DAILY 09/03/22 hydroCHLOROthiazide [Hydrochlorothiazide*] 12.5 mg PO DAILY 09/03/22 Atorvastatin Calcium [Lipitor] 40 mg PO BEDTIME 04/30/23 Cyanocobalamin [Vitamin B-12*] 1,000 mcg PO DAILY 04/30/23 Gabapentin 600 mg PO BID 04/30/23 Multivitamin 1 each PO DAILY 04/30/23 Ticagrelor [Brilinta*] 90 mg PO BID 04/30/23 Vit C/E/Zn/Coppr/Lutein/Zeaxan [Preservision Areds 2 Softgel] 1 each PO DAILY 04/30/23 Vitamin K2 (Mk-4) [Vitamin K2 (Menaquinone-4)] 100 mcg PO DAILY 04/30/23 Codeine/APAP [Tylenol #3*] 1 tab PO Q6H PRN #12 tab 05/04/23 - Past Medical/Surgical History Past Medical History: Reviewed- Non-Contributory -: Hypertension , Hyperlipidemia, CAD, prostate cancer Past Surgical History: Reviewed- Non-Contributory -: CABG , Stent - Family History Family History: Reviewed- Non-Contributory - Social History Smoking Status: Never smoker Review of Systems 10-point ROS is otherwise unremarkable Physical Examination - Vital Signs Temperature: 98.4 F Blood Pressure: 132/68 Pulse: 92 Respirations: 18 Pulse Ox (%): 94 - Physical Exam General: Alert, In no apparent distress, Oriented x3, Cooperative HEENT: Atraumatic, Normocephalic Neck: Supple, 2+ carotid pulse no bruit, JVD not distended Respiratory: Clear to auscultation bilaterally, Normal air movement Cardiovascular: No gallops, No rubs, Irregular heart rate/rhythm Capillary refill: <2 Seconds Gastrointestinal: Soft and benign, W/out hepatosplenomegaly, No ascites, No tenderness Musculoskeletal: No clubbing, No swelling Integumentary: No rashes, No breakdown Neurological: Normal speech, Normal strength at 5/5 x4 extr, Cranial nerves 3-12 intact, Normal reflexes 2+, Normal affect Lymphatics: No axilla or inguinal lymphadenopathy - Studies Laboratory Data (last 24 hrs) 07/10/23 07/10/23 07/10/23 00:04 00:04 00:04 WBC 9.20 Hgb 12.7 L Hct 38.1 L Plt Count 325 PT 13.5 H INR 1.23 Sodium 134 L Potassium 3.8 BUN 22 H Creatinine 1.10 Glucose 130 H Magnesium 1.9 Total Bilirubin 0.6 AST 22 ALT 26 Alkaline Phosphatase 69 Assessment and Plan - Problems (Diagnosis) (1) Unstable angina Current Visit: Yes Status: Acute Plan: Unstable angina Will trend cardiac enzymes Will monitor telemetry Started on aspirin and statin along with Brilinta EKG did not show any acute changes suggestive of ischemia Will get an echocardiogram Cardiology consult CT chest PE protocol was negative for PE New onset A-fib Patient is on sotalol already Will continue sotalol Rate controlled at this time Will get an echocardiogram Monitor closely under telemetry Cardiology consulted Awaiting cardiology opinion regarding anticoagulation Hypertension Antihypertensives titrated Continue home medications and titrate as needed Hyperlipidemia Continue statin History of prostate cancer on radiation therapy Denies any pain History of CHF Continue home medications Not in exacerbation even though BNP is elevated Echocardiogram ordered GI/DVT prophylaxis Advanced directive full code Discharge Plan: Home Plan to discharge in: 24 Hours - Advance Directives Does patient have a Living Will: No Does patient have a Durable POA for Healthcare: No - Code Status/Comfort Care Code Status: Full Code Time Spent Managing Pts Care (In Minutes): 48
[2023-07-10] MEDS ORDERED: CODEINE 30MG/APAP 300MG TAB PO PRN (02:45)
[2023-07-10 03:44] VITALS: BMI 30.1
[2023-07-10] MEDS ORDERED: VALSARTAN 80 MG TAB ONE (08:11)
[2023-07-10] MEDS ORDERED: SOTALOL HCL 80 MG TAB ONE (08:12)
[2023-07-10] MEDS ORDERED: GABAPENTIN 300 MG CAP ONE (08:12)
[2023-07-10] MEDS ORDERED: ENOXAPARIN 40 MG/0.4 ML SQ ONE (08:12)
[2023-07-10] MEDS ORDERED: TICAGRELOR 90 MG TABLET PO ONE (08:12)
[2023-07-10] MEDS: SOTALOL HCL 80 MG TAB PO SCH (09:00)
[2023-07-10] MEDS: GABAPENTIN 300 MG CAP PO SCH (09:00)
[2023-07-10] MEDS: VALSARTAN 160 MG TAB PO SCH (09:00)
[2023-07-10] MEDS: ENOXAPARIN 40 MG/0.4 ML SQ SCH (09:00)
[2023-07-10] MEDS: TICAGRELOR 90 MG TABLET PO SCH (09:00)
--- NOTE | 2023-07-10 17:22 | P.PN ---
Date of Service: 07/10/23 Patient reports intermittent chest pain. No shortness of breath. Troponin trended negative. Blood pressure readings are soft. Prior history of CABG and cardiac stent. Patient with high cardiac risk factors. Troponin trended negative. Continue aspirin, Brilinta, lipitor, Serial EKG. Patient is on sotalol. Cardiology to follow.
[2023-07-10] MEDS: ATORVASTATIN 40 MG TAB PO SCH (20:31)
[2023-07-10] MEDS: FENOFIBRATE 160 MG TAB PO SCH (20:31)
[2023-07-10] MEDS: ASPIRIN EC 81 MG TAB PO SCH (20:31)
--- NOTE | 2023-07-10 21:31 | RAD REPORT ---
EXAM DESCRIPTION: CT - Chest For Pe Angio - 07/10/2023 6:38 am CLINICAL HISTORY: The patient is 72 years old and is Male; chest pain TECHNIQUE: Axial computed tomographic angiography images of the chest with intravenous contrast. T his CT exam was performed using one or more of the following dose reduction techniques: automated e xposure control, adjustment of the mA and/or kV according to patient size, and/or use of iterative re construction technique. MIP reconstructed images were created and reviewed. Oblique reformatted images were created and reviewed. DLP: 522 mGy*cm COMPARISON: Chest radiograph of the same day. FINDINGS: PULMONARY ARTERIES: Unremarkable. No pulmonary embolism. AORTA: No acute findings. No thoracic aortic aneurysm. LUNGS: Unremarkable. No mass. No consolidation. PLEURAL SPACE: Unremarkable. No significant effusion. No pneumothorax. HEART: Unremarkable. No cardiomegaly. No significant pericardial effusion. No evidence of RV dysfunction. BONES/JOINTS: Prior median sternotomy. No acute fracture. No dislocation. SOFT TISSUES: Unremarkable. LYMPH NODES: Unremarkable. No enlarged lymph nodes. LIVER: Hepatic steatosis. IMPRESSION: 1. No pulmonary embolism. No acute intrathoracic abnormality. 2. Hepatic steatosis. Electronically signed by: Jose Su DO 07/10/2023 01:52 AM CDT Due to temporary technical issues with the PACS/Fluency reporting system, reports are being signed by the in house radiologists without review as a courtesy to insure prompt reporting. The interpreting radiologist is fully responsible for the content of the report.
--- NOTE | 2023-07-10 21:55 | RAD REPORT ---
EXAM DESCRIPTION: RAD - Chest Single View - 07/10/2023 12:15 am CLINICAL HISTORY: 72-year-old male with chest pain. TECHNIQUE: Single view, AP portable chest was obtained. COMPARISON: None. FINDINGS: Unremarkable cardiac and mediastinal silhouette. Heart size is normal. Median sternotomy w ires. Low lung volumes focal opacity, pneumothorax or pleural effusions. The visualized bones are within normal limits. IMPRESSION: No acute cardiopulmonary abnormalities. Electronically signed by: Kelly Gordon MD 07/10/2023 12:43 AM CDT Due to temporary technical issues with the PACS/Fluency reporting system, reports are being signed by the in house radiologists without review as a courtesy to insure prompt reporting. The interpreting radiologist is fully responsible for the content of the report.
[2023-07-11 03:20] LABS: Absolute Eosinophils 0.9 K/uL (0-0.5); Absolute Lymphocytes (CBC) 0.8 K/uL (0.7-4.9); Absolute Monocytes 0.9 K/uL (0.1-1.3); Absolute Neutrophil 4.6 K/uL (1.8-8.0); Basophils % 0.6 % (0-1.3); Eosinophils % 13.1 % (0-4.4); Hematocrit 37.2 % (39.6-49.0); Hemoglobin 12.1 g/dL (13.6-17.9); Lymphocytes % 10.7 % (15.3-44.8); MCH 27.9 pg (27.0-35.0); MCHC 32.4 g/dL (32.0-36.0); MCV 85.9 fL (80-100); MPV 7.2 fL (7.6-11.3); Monocytes % 12.1 % (3.3-12.3); Neutrophils % 63.5 % (41.7-73.7); Nucleated Red Blood Cells % 0.1 % (0-0); Platelets 348 thou/uL (152-406); RBC Red Blood Cell Count 4.33 M/uL (4.33-5.43); Red Cell Distribution Width 13.7 % (12.1-15.2)
[2023-07-11 03:36] LABS: Anion Gap 10.4 mEq/L (5.0-15.0); Potassium 4.4 mEq/L (3.5-5.1)
[2023-07-11 04:29] LABS: Specific Gravity 1.006 (1.005-1.030); Sqamous Epithelial <5 /HPF (None Seen); Urine Bacteria <20 /HPF (<20); Urine Bilirubin NEGATIVE (Negative); Urine Blood Negative (Negative); Urine Clarity Extremely Turbid (Clear); Urine Color Yellow (Yellow); Urine Culture Reflex Order NOT NEEDED; Urine Glucose NEGATIVE (Negative); Urine Ketones NEGATIVE (Negative); Urine Microscopic Reflex YN ORDER UMIC; Urine Mucus Slight /HPF (None Seen); Urine Nitrite NEGATIVE (Negative); Urine Protein NEGATIVE (Negative); Urine Urobilinogen Normal (Normal); Urine WBC <5 /HPF (<5)
--- NOTE | 2023-07-11 13:16 | P.PN ---
Subjective Date of Service: 07/11/23 Chief Complaint: Chest Pain Patient denies any chest pain today and states he feels fine. No issues overnight. He is ambulatory and denies shortness of breath. Physical Examination - Vital Signs Temperature: 97.4 F Blood Pressure: 104/51 Pulse: 83 Respirations: 16 Pulse Ox (%): 93 Assessment And Plan - Plan Physical examination General: Alert and oriented x3, NAD, HEENT: Conjunctiva not pale, anicteric sclera Neck: Supple, no elevated JVD Heart: Heart sounds 1 and 2 normal, regular rhythm, normal rate, no pedal edema Lungs: Clear to auscultation bilaterally, adequate breath sounds bilaterally, no rhonchi or crackles. Abdomen: Soft, nondistended, nontender, normal bowel sounds. Extremities: No tenderness, no deformity Skin: Normal skin turgor, no rash, no nodules or ulcers. Neuro: No focal motor deficit. Normal speech. Psychiatry: Normal mood, no agitation. Diagnosis Chest pain History of coronary artery disease History of CABG Atrial fibrillation Congestive heart failure Plan: Chest pain History of coronary artery disease History of CABG Troponin trended negative. Patient experiencing intermittent chest pain Dr. Forte pulmonary catheterization tomorrow Continue aspirin, Brilinta, Coreg and statin. History of abnormal heart rhythm Patient denies history of atrial fibrillation. Continue sotalol He is not on any anticoagulation. Congestive heart failure Unknown EF. Echocardiogram ordered. Patient appears compensated. Hyperlipidemia Continue on Lipitor and fenofibrate. DVT prophylaxis: Lovenox. Advanced directive: Full code.
--- NOTE | 2023-07-11 17:11 | CON ---
Date of Consultation: 07/11/2023 Reason For Consultation: Chest pain. History Of Present Illness: A 72-year-old male with history of hypertension; dyslipidemia; coronary artery disease, status post CABG and stent placement; chronic systolic heart failure; prostate cancer , presented to the emergency room with chest pain retrosternal area that is exertion related improves with resting. It is more getting more frequent and more persistent and more intense in severity. S tatus post LAD stent that was done about less than a year ago with atherectomy by myself. EKG showed atrial fibrillation with rate control. No other complaints. Past Medical History: As outlined above in the HPI. Medications: Refer to reconciliation sheet for detailed list. Allergies: NO KNOWN DRUG ALLERGIES. Family History: No premature coronary artery disease or cancer. Social History: He does not smoke or drink. Does not use any drugs. Review of Systems: All systems reviewed are negative except as mentioned in HPI. Physical Examination: Vital Signs: Reviewed. Head and Neck: Pupils are equal, reactive to light. Intact eye movements. No JVD. No cervical lym phadenopathy. Neck is supple. Thyroid is not enlarged. Lungs: Clear to auscultation bilaterally. No rhonchi, wheezing, or crackles. No accessory muscle u se. Heart: Irregular. No extra sounds. Abdomen: Soft, nontender. Bowel sounds positive. No organomegaly. No masses or hernia. No rigidi ty or rebound. Extremities: No edema, clubbing, or cyanosis. Intact pulses. Skin: No rash. Neurologic: Alert, awake, oriented x3. No acute focal deficits appreciated. Investigations: BUN 24, creatinine 1.1. Cardiac enzymes are negative and hemoglobin is 12.1. Assessment/recommendations: 1.Chest pain, typical features and appears to be becoming more frequent and more intense suggestive of unstable angina. Keep n.p.o. past midnight. Plan for coronary angiogram tomorrow and keep the pa tient on aspirin. 2.Dyslipidemia. Continue Lipitor 40 mg at bedtime. 3.Coronary artery disease with percutaneous coronary intervention of the left anterior descending la st year. Continue Brilinta and aspirin. Plan for coronary angiogram tomorrow. 4.Atrial fibrillation, on sotalol, to be continued and recommend left atrial appendage closure on hi to be done in the near future. SR/MODL Voice ID: [id number] Report ID: [id number]
[2023-07-12 03:52] LABS: Absolute Basophils 0.1 K/uL (0-0.5); Absolute Eosinophils 0.6 K/uL (0-0.5); Absolute Lymphocytes (CBC) 0.9 K/uL (0.7-4.9); Absolute Monocytes 0.7 K/uL (0.1-1.3); Absolute Neutrophil 4.2 K/uL (1.8-8.0); Basophils % 1.1 % (0-1.3); Eosinophils % 9.5 % (0-4.4); Hematocrit 33.9 % (39.6-49.0); Hemoglobin 11.2 g/dL (13.6-17.9); Lymphocytes % 13.3 % (15.3-44.8); MCH 28.5 pg (27.0-35.0); MCHC 33.2 g/dL (32.0-36.0); MCV 86.1 fL (80-100); MPV 7.2 fL (7.6-11.3); Monocytes % 11.2 % (3.3-12.3); Neutrophils % 64.9 % (41.7-73.7); Platelets 321 thou/uL (152-406); RBC Red Blood Cell Count 3.94 M/uL (4.33-5.43); Red Cell Distribution Width 13.7 % (12.1-15.2)
[2023-07-12 04:16] LABS: Anion Gap 7.1 mEq/L (5.0-15.0); Potassium 4.1 mEq/L (3.5-5.1)
[2023-07-12] MEDS ORDERED: LIDOCAINE 1% 20 ML MDV ONE (06:44)
[2023-07-12] MEDS ORDERED: HEPA 1000U/500MLS 2,000 UNIT/1,000 ML BAG IV ONE (06:44)
[2023-07-12] MEDS ORDERED: VERAPAMIL HCL 10 MG/4 ML VIAL IV ONE (06:46)
[2023-07-12] MEDS ORDERED: FENTANYL CITR 100 MCG/2 ML ONE (06:46)
[2023-07-12] MEDS ORDERED: NITROGLYCERIN/D5W 50 MG/250 ML BTL IV ONE (06:46)
[2023-07-12] MEDS ORDERED: MIDAZOLAM HCL 2 MG/2 ML INJ ONE (06:47)
[2023-07-12] MEDS ORDERED: HEPARIN 10,000 UNIT/10 ML VIAL IV ONE (06:47)
[2023-07-12] MEDS ORDERED: HEPARIN 5000 UNIT/ML 1 ML VIAL ONE (06:47)
[2023-07-12] MEDS ORDERED: TICAGRELOR 90 MG TABLET PO ONE (06:47)
[2023-07-12] MEDS ORDERED: ATROPINE SULF 1 MG/10 ML SYR IV ONE (06:47)
[2023-07-12] MEDS ORDERED: NA CHLORIDE 0.9% 500 ML ONE (06:48)
[2023-07-12] MEDS ORDERED: ASPIRIN 325 MG TAB ONE (06:48)
[2023-07-12] MEDS ORDERED: CLOPIDOGREL 75 MG TABLET ONE (06:48)
--- NOTE | 2023-07-12 08:32 | OP ---
Date of Procedure: 07/12/2023 Surgeon: NIKKI HURST Procedures Performed: 1.Selective coronary angiogram with bypass graft study. 2.Left heart catheterization. Indication: Unstable angina. Access: Right femoral artery 6-Northern Irish, closed with 6-Northern Irish Angio-Seal. Complications: None. Bleeding: Less than 50 mL. Anesthesia: Total sedation time was 45 minutes. Description Of Procedure: After risks, benefits, and alternatives were explained, the patient agreed to procedure and signed informed consent. The patient was brought to the cardiac catheterization la boratory, prepped and draped in the usual sterile fashion. Then, I accessed right femoral artery usi ng micropuncture kit, ultrasound guidance, fluoroscopy, placed a 6-Northern Irish Warren sheath and took a 6-Northern Irish JL4 catheter into the aortic root over a J-wire, engaged left main, took standard views, exc hanged for a 6-Northern Irish JR4 catheter, engaged the RCA, SVG graft to OM, and then using the catheter ove r J-wire across the aortic valve measured the LVEDP. Pullback did not record any gradient. Then, I removed the catheter and the sheath. 6-Northern Irish Angio-Seal device was used for closure with good hemos tasis. Findings: 1.Left main is normal. 2.LAD; widely patent proximal LAD stent and then LAD with luminal irregularities. 3.Ramus intermedius proximal 50%. 4.Left circumflex totally occluded ostially. 5.RCA is a stent in the proximal segment with diffuse 70% stenosis and then become [employer]. Bypass Graft Study: 1.YUEN known to be atretic. 2.SVG to OM is patent with 50% stenosis at the touchdown. 3.Occluded SVG to RCA. 4.LVEDP is borderline at 12 mmHg. Conclusion: Severe [place] coronary artery disease with patent SVG graft to the OM that has 50% steno sis distally and patent LAD stent and there are collaterals from the LAD to the RCA, very large nice collaterals. Recommendation: Continue medical management. Plan for an outpatient stress test. If it is positive in the territory of the OM, then plan for PCI of the SVG graft to the OM. SR/MODL Voice ID: [id number] Report ID: [id number]
--- NOTE | 2023-07-12 09:03 | PN ---
Date of Progress Note: 07/12/2023 Subjective: The patient is seen by bedside. Does not have chest pain since Wednesday. Review of Systems: No chest pain, shortness of breath, orthopnea, cough, nausea, vomiting, diarrhea. All other systems reviewed, they are negative. Objective: Vital Signs: Reviewed. Head and Neck: Pupils are equal, reactive to light. Intact eye movements. No JVD. No cervical lym phadenopathy. Neck is supple. Thyroid is not enlarged. Lungs: Clear to auscultation bilaterally. No rhonchi, wheezing, or crackles. No accessory muscle u se. Heart: Regular rate and rhythm. No extra sounds. Abdomen: Soft, nontender. Bowel sounds positive. No organomegaly. No masses or hernia. No rigidi ty or rebound. Extremities: No edema, clubbing, cyanosis. Intact pulses. Skin: No rash or nodule. Neurologic: Alert, awake, oriented x3. No acute focal deficits appreciated. Investigations: Labs reviewed. Assessment/recommendation: 1.Chest pain, status post coronary angiogram and no changes in his vasculature. The LAD stent is wi ana patent. Recommend to continue aspirin and Brilinta and statin. 2.Dyslipidemia. Continue statin, Lipitor 40 mg q.h.s. 3.Atrial fibrillation, on sotalol. Continue current management and recommend left atrial appendage closure in the near future. SR/MODL Voice ID: [id number] Report ID: [id number]
--- NOTE | 2023-07-12 13:07 | P.DS ---
Admission Date: 07/12/23 Discharge Date: 07/12/23 Disposition: ROUTINE DISCHARGE Discharge Condition: FAIR Reason for Admission: Chest Pain Brief History of Present Illness: 72 yrs old Male past medical history of hypertension, hyperlipidemia, CAD status post CABG and stents, chronic systolic heart failure, prostate cancer, brought to ER with chest pain, located in retrosternal area, with no radiation, worse with exertion and improves with rest. He has history of CAD s/p CABG in 2007, LAD stent < 1 year ago. saw learning specialist last week. He reported compliance with aspirin and brilinta, currently undergoing radiation treatment for prostate cancer. He was assessed in the ER, EKG did not show any acute ischemic changes but showed atrial fibrillation with rate controlled. CTA thorax did not show any acute changes, initial troponin negative. Patient was hospitalized for further management. Hospital Course: Diagnosis Chest pain History of coronary artery disease History of CABG Atrial fibrillation Congestive heart failure Plan: Chest pain History of coronary artery disease History of CABG Troponin trended negative. Dr. Forte performed catheterization today and reported no change in patient's cardiac vasculature Continued aspirin, Brilinta, Coreg and statin. History of abnormal heart rhythm Patient denies history of atrial fibrillation. Continue sotalol He is not on any anticoagulation. Patient will follow-up with learning specialist outpatient. Chronic diastolic heart failure Patient appears compensated. Hyperlipidemia Continue on Lipitor and fenofibrate. Patient was admitted to the medical floor due to chest pain. He has a history of significant coronary artery disease including a personal history. Troponin trended negative. Patient was seen and evaluated by cardiology Dr. Forte, cardiac catheterization was done patient found no change in his cardiac vasculature. Dr. Forte recommended follow-up with him in the office for arrangements for stress test. Patient advised to continue taking his aspirin and Brilinta and statins. Vital Signs/Physical Exam: Temp Pulse Resp BP Pulse Ox 97.8 F 67 16 121/63 95 07/12/23 08:49 07/12/23 11:46 07/12/23 08:49 07/12/23 09:46 07/12/23 08:00 General: Alert, In no apparent distress, Oriented x3 HEENT: Mucous membr. moist/pink Neck: Supple, JVD not distended Respiratory: Clear to auscultation bilaterally, Normal air movement Cardiovascular: No edema, Normal S1 S2, Irregular heart rate/rhythm Gastrointestinal: Normal bowel sounds, Soft and benign, Non-distended Musculoskeletal: No swelling, No tenderness Integumentary: No rashes, No cyanosis Neurological: Normal strength at 5/5 x4 extr Laboratory Data at Discharge: WBC 6.50 thou/uL (4.3-10.9) 07/12/23 03:23 Hgb 11.2 g/dL (13.6-17.9) L 07/12/23 03:23 Hct 33.9 % (39.6-49.0) L 07/12/23 03:23 Plt Count 321 thou/uL (152-406) 07/12/23 03:23 PT 13.5 SECONDS (9.5-12.5) H 07/10/23 00:04 INR 1.23 07/10/23 00:04 Sodium 138 mEq/L (136-145) 07/12/23 03:23 Potassium 4.1 mEq/L (3.5-5.1) 07/12/23 03:23 BUN 23 mg/dL (7-18) H 07/12/23 03:23 Creatinine 1.00 mg/dL (0.70-1.30) 07/12/23 03:23 Glucose 114 mg/dL (74-106) H 07/12/23 03:23 Magnesium 1.9 mg/dL (1.6-2.4) 07/10/23 00:04 Total Bilirubin 0.6 mg/dL (0.2-1.0) 07/10/23 00:04 AST 22 U/L (15-37) 07/10/23 00:04 ALT 26 U/L (16-61) 07/10/23 00:04 Alkaline Phosphatase 69 U/L (45-117) 07/10/23 00:04 Home Medications: Aspirin [Low Dose Aspirin EC] 81 mg PO BEDTIME 09/03/22 Cholecalciferol (Vitamin D3) [Vitamin D3] 25 mcg PO DAILY 09/03/22 Fenofibrate [Tricor*] 145 mg PO BEDTIME 09/03/22 Glimepiride 1 mg PO DAILY 09/03/22 Magnesium Oxide [Magnesium] 400 mg PO BID 09/03/22 Omeprazole 20 mg PO DAILY 09/03/22 Sotalol HCl [Betapace*] 80 mg PO BID 09/03/22 Tadalafil [Cialis] 5 mg PO DAILY 09/03/22 Telmisartan [Micardis] 80 mg PO DAILY 09/03/22 Ubidecarenone [Co Q-10] 100 mg PO DAILY 09/03/22 Zinc Gluconate [Zinc] 50 mg PO DAILY 09/03/22 hydroCHLOROthiazide [Hydrochlorothiazide*] 12.5 mg PO DAILY 09/03/22 Atorvastatin Calcium [Lipitor] 40 mg PO BEDTIME 04/30/23 Cyanocobalamin [Vitamin B-12*] 1,000 mcg PO DAILY 04/30/23 Gabapentin 600 mg PO BID 04/30/23 Multivitamin 1 each PO DAILY 04/30/23 Ticagrelor [Brilinta*] 90 mg PO BID 04/30/23 Vit C/E/Zn/Coppr/Lutein/Zeaxan [Preservision Areds 2 Softgel] 1 each PO DAILY 04/30/23 Vitamin K2 (Mk-4) [Vitamin K2 (Menaquinone-4)] 100 mcg PO DAILY 04/30/23 Codeine/APAP [Tylenol #3*] 1 tab PO Q6H PRN #12 tab 05/04/23 Physician Discharge Instructions: Patient was admitted to the medical floor due to chest pain. He has a history of significant coronary artery disease including a personal history. Troponin trended negative. Patient was seen and evaluated by cardiology Dr. Forte, cardiac catheterization was done patient found no change in his cardiac vasculature. Dr. Forte recommended follow-up with him in the office for arrangements for stress test. Patient advised to continue taking his aspirin and Brilinta and statins. Diet: AHA Activity: Ad shayne Followup: Afsaneh King NP [Primary Care Provider] - 1-2 Weeks Scout Forte MD [ACTIVE - CAN ADMIT] - 1-2 Weeks
[2023-07-12 13:18] VITALS: BP 126/63; TEMP 97.5; O2SAT 97
== END 2023-07-12 13:00 | disposition home or self-care (01) | DRG 287 ==
LOC: ER 23:48 → ERHOLD 07-10 02:41 → 4TH 07-10 08:27 → OBSVTOIN 07-12 10:52
PROVIDERS: ADMIT Family Medicine; ATTEND Internal Medicine
PROC: B2131ZZ Fluoroscopy of Multiple Coronary Artery Bypass Grafts using Low Osmolar Contrast (ICD-10-PCS; principal; 2023-07-12)
PROC: 4A023N7 Measurement of Cardiac Sampling and Pressure, Left Heart, Percutaneous Approach (ICD-10-PCS; 2023-07-12)
DX: I25.110 Atherosclerotic heart disease of native coronary artery with unstable angina pectoris (principal); I50.32 Chronic diastolic (congestive) heart failure; I11.0 Hypertensive heart disease with heart failure; I48.91 Unspecified atrial fibrillation; E78.5 Hyperlipidemia, unspecified; C61 Malignant neoplasm of prostate; I25.2 Old myocardial infarction; Z95.1 Presence of aortocoronary bypass graft; Z95.5 Presence of coronary angioplasty implant and graft; Z79.82 Long term (current) use of aspirin; Z79.899 Other long term (current) drug therapy
CPT/HCPCS: 36415; 71045; 71275; 76937; 80048; 80061; 80076; 81001; 83735; 83880; 84484; 85025; 85610; 93005; 93458; 94760; 99285; C1760; C1893; J0461; J1644; J1650; J2001; J2250; J3010; J7040; Q9967

== ENCOUNTER 2024-06-07 22:04 | Inpatient (IN) | payer OTHER ==
--- NOTE | 2024-06-07 22:53 | RAD REPORT ---
EXAM: Chest Single View HISTORY: 73 years Male CHEST PAIN COMPARISON: 07/10/2023 FINDINGS: LUNGS/PLEURA: The lungs are clear. No pleural effusions or pneumothorax. No pulmonary edema. CARDIAC/MEDIASTINUM: The cardiac silhouette is within normal limits. UPPER ABDOMEN: No significant abnormality. BONES: Sternotomy. No acute abnormality. LINES/TUBES/OTHER: N/A IMPRESSION: No evidence of acute cardiopulmonary disease.
[2024-06-07 22:58] LABS: PT Prothrombin Time 12.5 SECONDS (10-13.0); Protime INR 1.1
[2024-06-07 22:59] LABS: Absolute Basophils 0.1 K/uL (0-0.5); Absolute Eosinophils 0.3 K/uL (0-0.5); Absolute Monocytes 0.5 K/uL (0.1-1.3); Absolute Neutrophil 3.6 K/uL (1.8-8.0); Eosinophils % 4.7 % (0-4.4); Hematocrit 41.2 % (39.6-49.0); Hemoglobin 13.6 g/dL (13.6-17.9); Lymphocytes % 19.2 % (15.3-44.8); MCV 84.9 fL (80-100); MPV 7.5 fL (7.6-11.3); Monocytes % 8.6 % (3.3-12.3); Neutrophils % 66.5 % (41.7-73.7); Platelets 218 thou/uL (152-406); RBC Red Blood Cell Count 4.85 M/uL (4.33-5.43); Red Cell Distribution Width 14.6 % (12.1-15.2)
[2024-06-07 23:11] LABS: ALT/SGPT 26 U/L (16-61); AST/SGOT 21 U/L (15-37); Albumin 3.4 g/dL (3.4-5.0); Albumin/Globulin Ratio 0.9 (1.1-1.8); Alkaline Phosphatase 58 U/L (45-117); Anion Gap 7.8 mEq/L (5.0-15.0); BUN Blood Urea Nitrogen 26 mg/dL (7-18); Bicarbonate 30 mEq/L (21-32); Bilirubin Total 0.4 mg/dL (0.2-1.0); Globulin 3.6 g/dL (2.3-3.5); Glomerular Filtration Rate 58 ml/min (=/>90); Glucose Level 238 mg/dL (74-106); Magnesium 1.8 mg/dL (1.6-2.4); NT PRO-BNP 730 pg/mL (<125); Potassium 3.8 mEq/L (3.5-5.1); Sodium Level 138 mEq/L (136-145)
[2024-06-07 23:12] LABS: Bilirubin Direct < 0.2 mg/dL (0-0.2); Bilirubin Indirect, Calculated 0.2 mg/dL (0.2-0.8)
[2024-06-07 23:14] LABS: Troponin High Sensitivity 651.2 pg/mL (<58.9)
--- NOTE | 2024-06-07 23:23 | EDPHYS ---
Physician Documentation [facility] Name: Ruddy Tavarez Age: 73 yrs Sex: Male : 1950 Arrival Date: 06/07/2024 Time: 22:04 Bed 20 Private MD: ED Physician Jax Cleveland HPI: 06/08 00:06 This 73 yrs old Male presents to ER via Ambulatory with complaints of Chest Pain, Neck sb4 and Upper Back Pain, High Blood Pressure. 00:06 Patient reports substernal chest pain that began this evening after eating dinner. sb4 States the pain radiates to his upper back. He checked his blood pressure and it was very elevated. He states he took 2 Tums and his pain improved, but he has a significant cardiac history so he came to the ED to be evaluated. states that he has been taking more heartburn medicine than usual over the past few days. Historical: - Allergies: 06/07 22:27 No Known Allergies; vc1 - Home Meds: 22:27 None [Active]; vc1 - PMHx: 22:27 Chronic systolic heart failure; Myocardial infarction; Prostate Cancer; Hypertensive vc1 disorder; HYPERLIPIDEMIA; - PSHx: 22:27 cardiac stents X 5; vc1 - Immunization history:: Adult Immunizations unknown. - Infectious Disease History:: Denies. - Social history:: Smoking status: Patient denies any tobacco usage or history of. ROS: 06/08 00:06 Constitutional: Negative for fever, chills, and weight loss, sb4 Cardiovascular: Positive for chest pain, All other systems are negative, Exam: 00:06 Constitutional: This is a well developed, well nourished patient who is awake, alert, sb4 and in no acute distress. Head/Face: Normocephalic, atraumatic. Eyes: Extra-ocular motions intact. Periorbital areas with no swelling, redness, or edema. ENT: Mucous membranes moist. Cardiovascular: Regular rate and rhythm with a normal S1 and S2. Respiratory: No increased work of breathing, no retractions or nasal flaring. Abdomen/GI: Soft, non-tender, no distension. Skin: Warm, dry with normal turgor. Normal color with no rashes, no lesions, and no evidence of cellulitis. Vital Signs: 06/07 22:22 BP 143 / 70; Pulse 65; Resp 16; Temp 98.1; Pulse Ox 98% ; Weight 99.79 kg; Height 5 ft. vc1 10 in. ; Pain 2/10; 23:30 BP 142 / 60; Pulse 64; Resp 16; Pulse Ox 96% ; kj2 06/08 00:00 BP 139 / 62; Pulse 62; Resp 15; Pulse Ox 96% ; al5 00:30 BP 135 / 73; Pulse 61; Resp 17; Pulse Ox 96% ; al5 00:48 Weight 100.7 kg; al5 01:00 BP 148 / 71; Pulse 60; Resp 15; Pulse Ox 97% ; al5 06/07 22:22 Body Mass Index 31.57 (100.70 kg, 177.8 cm) vc1 06/07 22:22 Pain Scale: Adult vc1 MDM: 06/07 22:14 Medical Screening Exam initiated sb4 06/08 00:15 Data reviewed: vital signs, nurses notes, lab test result(s), EKG, radiologic studies, sb4 I have discussed the patient's presentation/case with the attending Emergency Department Physician; and as a result, I will admit patient. Management of patient was discussed with the following: Service Vehicle Operator: justus Smith heparin drip, NPO at midnight for cath tomorrow. Historians other than the Patient: Spouse/Significant Other: . Care significantly affected by the following chronic conditions: Hypertension, Congestive Heart Failure, Obesity. Counseling: I had a detailed discussion with the patient and/or guardian regarding the historical points, exam findings, and any diagnostic results supporting the discharge/admit diagnosis, the presence of at least one elevated blood pressure reading (>120/80) during this emergency department visit, lab results, radiology results, the need for further work-up and treatment in the hospital. 06/07 22:26 Order name: Basic Metabolic Panel; Complete Time: 23:16 sb4 06/07 22:26 Order name: CBC with Diff; Complete Time: 23:03 sb4 06/07 22:26 Order name: LFT's; Complete Time: 23:16 sb4 06/07 22:26 Order name: Magnesium; Complete Time: 23:16 sb4 06/07 22:26 Order name: NT PRO-BNP; Complete Time: 23:16 sb4 06/07 22:26 Order name: PT-INR; Complete Time: 23:03 sb4 06/07 22:26 Order name: Troponin HS; Complete Time: 23:16 sb4 06/07 23:34 Order name: Ptt, Activated; Complete Time: 00:15 kj2 06/07 23:44 Order name: Urinalysis w/ reflexes EDMS 06/07 23:44 Order name: CBC with Automated Diff EDMS 06/07 23:44 Order name: CBC with Automated Diff EDMS 06/07 23:44 Order name: Comprehensive Metabolic Panel EDMS 06/07 23:44 Order name: Comprehensive Metabolic Panel EDMS 06/07 23:44 Order name: Troponin High Sensitivity EDMS 06/07 23:44 Order name: Troponin High Sensitivity EDMS 06/07 23:46 Order name: CBC with Automated Diff EDMS 06/07 23:46 Order name: Platelet Count EDMS 06/07 23:46 Order name: CBC with Automated Diff EDMS 06/07 23:46 Order name: CBC with Automated Diff EDMS 06/07 23:46 Order name: CBC with Automated Diff EDMS 06/07 23:46 Order name: CBC with Automated Diff EDMS 06/07 23:46 Order name: Platelet Count EDMS 06/07 23:46 Order name: Platelet Count EDMS 06/07 23:46 Order name: Platelet Count EDMS 06/07 23:46 Order name: Platelet Count EDMS 06/07 23:46 Order name: Platelet Count EDMS 06/07 23:46 Order name: Platelet Count EDMS 06/07 23:46 Order name: Platelet Count EDMS 06/07 23:46 Order name: Platelet Count EDMS 06/07 23:47 Order name: PTT, Activated Partial Thromb EDMS 06/07 23:47 Order name: PTT, Activated Partial Thromb EDMS 06/07 23:47 Order name: PTT, Activated Partial Thromb EDMS 06/07 23:47 Order name: PTT, Activated Partial Thromb EDMS 06/07 23:47 Order name: PTT, Activated Partial Thromb EDMS 06/07 23:59 Order name: Protime (+INR); Complete Time: 00:15 EDMS 06/07 22:26 Order name: XRAY Chest (1 view); Complete Time: 23:03 sb4 06/07 22:26 Order name: Cardiac monitoring; Complete Time: 22:32 sb4 06/07 22:26 Order name: EKG - Nurse/Tech; Complete Time: : sb4 06/07 22:26 Order name: IV Saline Lock; Complete Time: sb4 06/07 22: Order name: Labs collected and sent; Complete Time: : sb4 06/07 22:26 Order name: O2 Per Protocol; Complete Time: : sb4 06/07 22: Order name: O2 Sat Monitoring; Complete Time: : sb4 EC:14 Rate is 65 beats/min. Rhythm is regular, Sinus Rhythm with 1st degree heart block. AK sb4 interval is prolonged at 216 msec. QRS interval is normal at 102 msec. QT interval is normal at 460 msec. No Q waves. T waves are Normal. No ST changes noted. Clinical impression: 1st degree heart block. Interpreted by me. Reviewed by me. Administered Medications: 00:07 Drug: Aspirin PO Chewable Tablet 324 mg PO once; 81 mg tablets x 4 Route: PO; kj2 01:03 Follow up: Response: No adverse reaction al5 00:07 Drug: NS 0.9% IV 1000 ml IV at 1 bolus Per protocol; to be given as a bolus over 60 kj2 minutes Route: IV; Rate: 1 bolus; Site: right antecubital; 01:03 Follow up: Response: No adverse reaction; IV Status: Infusion continued upon admission al5 01:06 Drug: Heparin ([place] Drip) 12 units/kg/[place] - ([place] [address] units, D5W IV 500 ml) IV at vc1 calculated rate Per protocol; Max initial rate 1000 units/hr {Co-Signature: frandy (Tasha Mejia RN).} Route: IV; Rate: calculated rate; Site: right antecubital; 01:09 Follow up: Response: No adverse reaction; IV Status: Infusion continued upon admission al5 01:07 Drug: Heparin ([place]-Bolus No thrombolytic) - HEParin IVP 60 units/kg IVP once; Max 5000 vc1 units {Co-Signature: frandy (Tasha Mejia RN).} Route: IVP; Site: right antecubital; 01:09 Follow up: Response: No adverse reaction al5 Disposition: 23:14 Co-signature as Attending Physician, Jax Cleveland MD I agree with the assessment sp4 and plan of care. I reviewed the patient's care provided by the Advanced Practice Provider and agree with the diagnosis and treatment plan. Disposition Summary: 06/07/24 23:23 Hospitalization Ordered Notes: Hospitalization Status: Inpatient Admission sb4 Provider: Dashawn Barillas sb4 Location: Telemetry/MedSur (Inpatient) sb4 Condition: Fair sb4 Problem: new sb4 Symptoms: are unchanged sb4 Bed/Room Type: Standard sb4 Room Assignment: 213(06/07/24 23:57) rv1 Diagnosis - Subsequent non-ST elevation (NSTEMI) myocardial infarction sb4 Forms: - Medication Reconciliation Form sb4 - SBAR form sb4 - Leadership Thank You Letter sb4 Critical care time excluding procedures: 00:17 Critical care time: Bedside Care: 15 minutes, Consultation: 15 minutes, Family sb4 Intervention: 5 minutes. Total time: 35 minutes Signatures: Dispatcher [employer] EDMS Irlanda Tyson RN RN vc1 Jodi Urbina PA-C PALiss sb4 Shoshana Ta rv1 Jax Cleveland MD MD sp4 Erika Lopez RN RN kj2 Tasha Mejia RN al5 Tasha Mejia RN al5 Corrections: (The following items were deleted from the chart) 06/07 22:27 22:27 BASIC METABOLIC PANEL+C.LAB.BRZ ordered. EDMS EDMS 22:27 22:27 CBC+H.LAB.BRZ ordered. EDMS EDMS 22:27 22:27 HEPATIC FUNCTION+C.LAB.BRZ ordered. EDMS EDMS 22:27 22:27 MAGNESIUM+C.LAB.BRZ ordered. EDMS EDMS 22:27 22:27 PROBNP+C.LAB.BRZ ordered. EDMS EDMS 22:27 22:27 PROTIME (+INR)+COAG.LAB.BRZ ordered. EDMS EDMS 22:27 22:27 Troponin High Sensitivity+C.LAB.BRZ ordered. EDMS EDMS 22:27 22:27 Chest Single View+RAD.RAD.BRZ ordered. EDMS EDMS 23:57 23:23 sb4 rv1 23:58 23:46 Protime (+INR) ordered. EDMS EDMS 23:58 23:46 PTT, Activated Partial Thromb ordered. EDMS EDMS
--- NOTE | 2024-06-07 23:23 | ER ---
Nurse's Notes [facility] Name: Ruddy Tavarez Age: 73 yrs Sex: Male : 1950 Arrival Date: 06/07/2024 Time: 22:04 Bed 20 Private MD: Diagnosis: Subsequent non-ST elevation (NSTEMI) myocardial infarction Presentation: 06/07 22:22 Chief complaint: Patient states: SEVERE CHEST PAIN AFTER DINNER RADIATED TO BACK OF vc1 NECK. SUBSIDED ON THE WAY HERE AFTER TAKING TWO TUMS. Coronavirus screen: Client denies travel out of the [place] in the last 14 days. At this time, the client does not indicate any symptoms associated with coronavirus-19. Ebola Screen: Patient negative for fever greater than or equal to 101.5 degrees Fahrenheit, and additional compatible Ebola Virus Disease symptoms Patient denies exposure to infectious person. Patient denies travel to an Ebola-affected area in the 21 days before illness onset. No symptoms or risks identified at this time. Initial Sepsis Screen: Does the patient meet any 2 criteria? No. Patient's initial sepsis screen is negative. Does the patient have a suspected source of infection? No. Patient's initial sepsis screen is negative. Risk Assessment: Do you want to hurt yourself or someone else? Patient reports no desire to harm self or others. Onset of symptoms was June 07, 2024. 22:22 Method Of Arrival: Ambulatory vc1 22:22 Acuity: BELLO 3 vc1 Triage Assessment: 22:29 General: Appears in no apparent distress. comfortable, obese, well groomed, well vc1 developed, Behavior is calm, cooperative, appropriate for age. Pain: Complains of pain in mid-sternal area Pain radiates to right posterior aspect of neck and left posterior aspect of neck Pain currently is 2 out of 10 on a pain scale. at worst was 8 out of 10 on a pain scale. Quality of pain is described as sharp, Pain began suddenly. EENT: No deficits noted. No signs and/or symptoms were reported regarding the EENT system. Neuro: Level of Consciousness is awake, alert, obeys commands, Oriented to person, place, time, situation, Appropriate for age. Cardiovascular: Reports chest pain, Denies nausea, palpitations, shortness of breath, Capillary refill < 3 seconds Patient's skin is warm and dry. Rhythm is SINUS WITH A FIRST DEGREE BLOCK. Respiratory: Airway is patent Respiratory effort is even, unlabored, Respiratory pattern is regular, symmetrical. GI: No deficits noted. No signs and/or symptoms were reported involving the gastrointestinal system. : No deficits noted. No signs and/or symptoms were reported regarding the genitourinary system. Derm: Skin is intact, is healthy with good turgor, Skin is dry, Skin is normal, Skin temperature is warm. Musculoskeletal: Circulation, motion, and sensation intact. Range of motion: intact in all extremities. Historical: - Allergies: 22: No Known Allergies; vc1 - Home Meds: 22: None [Active]; vc1 - PMHx: 22: Chronic systolic heart failure; Myocardial infarction; Prostate Cancer; Hypertensive vc1 disorder; HYPERLIPIDEMIA; - PSHx: 22: cardiac stents X 5; vc1 - Immunization history:: Adult Immunizations unknown. - Infectious Disease History:: Denies. - Social history:: Smoking status: Patient denies any tobacco usage or history of. Screenin:30 [facility] ED Fall Risk Assessment (Adult) History of falling in the last 3 months, kj2 including since admission No falls in past 3 months (0 pts) Confusion or Disorientation No (0 pts) Intoxicated or Sedated No (0 pts) Impaired Gait No (0 pts) Mobility Assist Device Used No (0 pt) Altered Elimination No (0 pt) Score/Fall Risk Level 0 - 2 = Low Risk Maintained a safe environment, Hourly rounding (assess needs \T\ fall precautionary measures) done. Abuse screen: Denies threats or abuse. Denies injuries from another. Nutritional screening: No deficits noted. Tuberculosis screening: No symptoms or risk factors identified. Assessment: 22:30 General: Appears in no apparent distress. Behavior is calm, cooperative. Pain: kj2 Complains of pain in neck and left posterior aspect of neck and right posterior aspect of neck and chest and mid-sternal area Pain currently is 5 out of 10 on a pain scale. Neuro: Level of Consciousness is awake, alert, obeys commands, Oriented to person, place, time, situation. Cardiovascular: Patient's skin is warm and dry. Respiratory: Airway is patent Respiratory effort is unlabored. GI: No signs and/or symptoms were reported involving the gastrointestinal system. : No signs and/or symptoms were reported regarding the genitourinary system. 23:30 Reassessment: Patient appears in no apparent distress at this time. Patient and/or kj2 family updated on plan of care and expected duration. Pain level reassessed. Patient is alert, oriented x 3, equal unlabored respirations, skin warm/dry/pink. Vital Signs: 22:22 BP 143 / 70; Pulse 65; Resp 16; Temp 98.1; Pulse Ox 98% ; Weight 99.79 kg; Height 5 ft. vc1 10 in. ; Pain 2/10; 23:30 BP 142 / 60; Pulse 64; Resp 16; Pulse Ox 96% ; kj2 06/08 00:00 BP 139 / 62; Pulse 62; Resp 15; Pulse Ox 96% ; al5 00:30 BP 135 / 73; Pulse 61; Resp 17; Pulse Ox 96% ; al5 00:48 Weight 100.7 kg; al5 01:00 BP 148 / 71; Pulse 60; Resp 15; Pulse Ox 97% ; al5 06/07 22:22 Body Mass Index 31.57 (100.70 kg, 177.8 cm) vc1 06/07 22:22 Pain Scale: Adult vc1 ED Course: 06/07 22:07 Patient arrived in ED. gm2 22:10 Jodi Urbina PA-C is PHCP. sb4 22:10 Jax Cleveland MD is Attending Physician. sb4 22:27 Triage completed. vc1 22:29 Arm band placed on left wrist. vc1 22:32 Inserted saline lock: 20 gauge in right antecubital area, using aseptic technique. af3 Blood collected. Flushed with 10 mL NS. 22:32 EKG done, by forestry aid technician. af3 22:32 Initial lab(s) drawn, by al, sent to lab. af3 22:50 XRAY Chest (1 view) In Process Unspecified. EDMS 22:56 Erika Lopez, RN is Primary Nurse. kj2 23:00 No provider procedures requiring assistance completed. kj2 23:01 Patient has correct armband on for positive identification. Bed in low position. Call kj2 light in reach. Side rails up X 1. Adult w/ patient. Provided Education on: call light. 23:23 Dashawn Barillas MD is Hospitalizing Provider. sb4 06/08 01:11 Client placed on continuous cardiac and pulse oximetry monitoring. NIBP monitoring al5 applied. residential monitor on. 01:11 Patient maintains SpO2 saturation greater than 95% on room air. al5 01:11 Patient admitted, IV remains in place. al5 Administered Medications: 00:07 Drug: Aspirin PO Chewable Tablet 324 mg PO once; 81 mg tablets x 4 Route: PO; kj2 01:03 Follow up: Response: No adverse reaction al5 00:07 Drug: NS 0.9% IV 1000 ml IV at 1 bolus Per protocol; to be given as a bolus over 60 kj2 minutes Route: IV; Rate: 1 bolus; Site: right antecubital; 01:03 Follow up: Response: No adverse reaction; IV Status: Infusion continued upon admission al5 01:06 Drug: Heparin ([place] Drip) 12 units/kg/[place] - ([place] [address] units, D5W IV 500 ml) IV at vc1 calculated rate Per protocol; Max initial rate 1000 units/hr {Co-Signature: frandy (Tasha Mejia RN).} Route: IV; Rate: calculated rate; Site: right antecubital; 01:09 Follow up: Response: No adverse reaction; IV Status: Infusion continued upon admission al5 01:07 Drug: Heparin ([place]-Bolus No thrombolytic) - HEParin IVP 60 units/kg IVP once; Max 5000 vc1 units {Co-Signature: frandy (Tasha Mejia RN).} Route: IVP; Site: right antecubital; 01:09 Follow up: Response: No adverse reaction al5 Medication: 06/07 22:59 VIS not applicable for this client. kj2 Outcome: 23:23 Decision to Hospitalize by Provider. sb4 06/08 01:11 Admitted to Med/surg accompanied by tech, family with patient, via stretcher, room 213, al5 with chart, Condition: stable Instructed on the need for admit, 01:12 Patient left the ED. al5 Signatures: Dispatcher [employer] EDSD Irlanda Tyson RN RN vc1 Jodi Urbina, PALiss PALiss sb4 Nicci Ryan gm2 Tasha Mejia RN RN al5 Erika Lopez RN RN kj2 Madison Leos3 Roberto Tasha RN al5
--- NOTE | 2024-06-07 23:39 | P.HP ---
Certification for Inpatient Patient admitted to: Inpatient With expected LOS: >2 Midnights Practitioner: I am a practitioner with admitting privileges, knowledge of patient current condition, hospital course, and medical plan of care. Services: Services provided to patient in accordance with Admission requirements found in Title 42 Section 412.3 of the Code of Federal Regulations Patient History Date of Service: 06/08/24 Reason for admission: NTEMI History of Present Illness: 73 yrs old Male with past medical history of hypertension, hyperlipidemia, CAD status post CABG and stents, chronic systolic heart failure, prostate cancer, and diabetes brought to ER with chest pain. Pain started earlier this evening, located in retrosternal area, with no radiation. Denies any diaphoresis. Worse with exertion and improves with rest. Denies any shortness of breath. He has history of CAD s/p CABG in 2007, LAD stent < 1 year ago . No fever or chills. No sick contacts. He was assessed in the ER and was admitted for further management of NSTEMI . Allergies No Known Allergies Allergy (Verified 04/30/23 08:48) Home medications list reviewed: Yes Home Medications: Aspirin [Low Dose Aspirin EC] 81 mg PO BEDTIME 09/03/22 Cholecalciferol (Vitamin D3) [Vitamin D3] 25 mcg PO DAILY 09/03/22 Fenofibrate [Tricor*] 145 mg PO BEDTIME 09/03/22 Glimepiride 1 mg PO DAILY 09/03/22 Magnesium Oxide [Magnesium] 400 mg PO BID 09/03/22 Omeprazole 20 mg PO DAILY 09/03/22 Sotalol HCl [Betapace*] 80 mg PO BID 09/03/22 Telmisartan [Micardis] 80 mg PO DAILY 09/03/22 Ubidecarenone [Co Q-10] 100 mg PO DAILY 09/03/22 Zinc Gluconate [Zinc] 50 mg PO DAILY 09/03/22 hydroCHLOROthiazide [Hydrochlorothiazide*] 12.5 mg PO DAILY 09/03/22 tadalafiL [Cialis] 5 mg PO DAILY 09/03/22 Atorvastatin Calcium [Lipitor] 80 mg PO BEDTIME 04/30/23 Cyanocobalamin [Vitamin B-12*] 1,000 mcg PO DAILY 04/30/23 Gabapentin 600 mg PO BID 04/30/23 Multivitamin 1 each PO DAILY 04/30/23 Ticagrelor [Brilinta*] 90 mg PO BID 04/30/23 Vit C/E/Zn/Coppr/Lutein/Zeaxan [Preservision Areds 2 Softgel] 1 each PO DAILY 04/30/23 Vitamin K2 (Mk-4) [Vitamin K2 (Menaquinone-4)] 100 mcg PO DAILY 04/30/23 Codeine/APAP [Tylenol #3*] 1 tab PO Q6H PRN #12 tab 05/04/23 Tamsulosin [Flomax*] 1 pill PO BID 06/08/24 - Past Medical/Surgical History Diabetic: No Past Medical History: Reviewed- Non-Contributory -: Hypertension , Hyperlipidemia, CAD, prostate cancer -: prostate cancer Past Surgical History: Reviewed- Non-Contributory -: CABG , Stent - Social History Smoking Status: Never smoker Review of Systems 10-point ROS is otherwise unremarkable Physical Examination - Vital Signs Temperature: 98.4 F Blood Pressure: 136/68 Pulse: 60 Respirations: 18 Pulse Ox (%): 94 - Physical Exam General: Alert, In no apparent distress, Oriented x3 HEENT: Atraumatic, Normocephalic Neck: Supple Respiratory: Clear to auscultation bilaterally, Normal air movement Cardiovascular: Regular rate/rhythm, Normal S1 S2 Capillary refill: <2 Seconds Gastrointestinal: Soft and benign, W/out hepatosplenomegaly Musculoskeletal: No clubbing, No swelling Integumentary: No rashes, No tenderness/swelling Neurological: Normal speech, Normal strength at 5/5 x4 extr, Cranial nerves 3-12 intact, Normal reflexes 2+ Lymphatics: No axilla or inguinal lymphadenopathy - Studies Laboratory Data (last 24 hrs) 06/07/24 06/07/24 06/07/24 22:30 22:30 22:30 WBC 5.40 Hgb 13.6 Hct 41.2 Plt Count 218 PT 12.5 INR 1.10 Sodium 138 Potassium 3.8 BUN 26 H Creatinine 1.31 H Glucose 238 H Magnesium 1.8 Total Bilirubin 0.4 AST 21 ALT 26 Alkaline Phosphatase 58 Assessment and Plan - Plan NSTEMI Will trend cardiac enzymes Will monitor telemetry Started on aspirin and statin along with Brilinta Cardiology consult On Heparin drip Possible LHC in AM NPO IV hydration Hypertension Antihypertensives titrated Continue home medications and titrate as needed Hyperlipidemia Continue statin History of prostate cancer on radiation therapy Denies any pain History of CHF Continue home medications Not in exacerbation GI/DVT prophylaxis Advanced directive full code Discharge Plan: Home Plan to discharge in: 48 Hours - Advance Directives Does patient have a Living Will: No Does patient have a Durable POA for Healthcare: No - Code Status/Comfort Care Code Status: Full Code Time Spent Managing Pts Care (In Minutes): 54
[2024-06-07] MEDS ORDERED: HEPARIN 10,000 UNIT/10 ML VIAL IV ONE (23:43)
[2024-06-07] MEDS ORDERED: CODEINE 30MG/APAP 300MG TAB PO PRN (23:45)
[2024-06-08] MEDS ORDERED: ASPIRIN 81 MG CHEWABLE TABLET ONE (00:01)
[2024-06-08] MEDS ORDERED: NA CHLORIDE 0.9% 1,000 ML ONE (00:01)
[2024-06-08 00:15] LABS: PT Prothrombin Time 12.2 SECONDS (10-13.0); PTT, Activated Partial Thromb 26.8 SECONDS (27.2-37.4); Protime INR 1.07
[2024-06-08] MEDS ORDERED: HEPARIN 5000 UNIT/ML 1 ML VIAL ONE (00:52)
[2024-06-08] MEDS ORDERED: HEPARIN/D5W 25,000 UNIT/500 ML BAG IV ONE (00:52)
[2024-06-08 02:29] VITALS: BMI 31.5
[2024-06-08 04:34] LABS: Absolute Eosinophils 0.3 K/uL (0-0.5); Absolute Lymphocytes (CBC) 1.3 K/uL (0.7-4.9); Absolute Monocytes 0.7 K/uL (0.1-1.3); Absolute Neutrophil 3.7 K/uL (1.8-8.0); Basophils % 0.7 % (0-1.3); Eosinophils % 5.1 % (0-4.4); Hematocrit 37.5 % (39.6-49.0); Hemoglobin 12.9 g/dL (13.6-17.9); Lymphocytes % 21.9 % (15.3-44.8); MCH 28.7 pg (27.0-35.0); MCHC 34.4 g/dL (32.0-36.0); MCV 83.6 fL (80-100); MPV 7.8 fL (7.6-11.3); Monocytes % 11.1 % (3.3-12.3); Neutrophils % 61.2 % (41.7-73.7); Nucleated Red Blood Cells % 0.1 % (0-0); Platelets 202 thou/uL (152-406); RBC Red Blood Cell Count 4.48 M/uL (4.33-5.43); Red Cell Distribution Width 14.5 % (12.1-15.2)
[2024-06-08 04:45] LABS: Albumin 3.1 g/dL (3.4-5.0); Anion Gap 7.3 mEq/L (5.0-15.0); Bilirubin Total 0.3 mg/dL (0.2-1.0); Globulin 3.2 g/dL (2.3-3.5); Potassium 4.3 mEq/L (3.5-5.1); Protein, Total 6.3 g/dL (6.4-8.2)
[2024-06-08 04:52] LABS: Troponin High Sensitivity 632.3 pg/mL (<58.9)
[2024-06-08] MEDS: SOTALOL HCL 80 MG TAB PO SCH (08:36)
[2024-06-08] MEDS: VALSARTAN 160 MG TAB PO SCH (08:36)
[2024-06-08] MEDS: CYANOCOBALAMIN 1,000 MCG TAB PO SCH (09:00)
[2024-06-08] MEDS: GABAPENTIN 300 MG CAP PO SCH (09:00)
--- NOTE | 2024-06-08 11:39 | P.CNS ---
Date of Consult: 06/08/24 Chief Complaint: NTEMI History of Present Illness: Patient with PMH of CAD s/p CABG, and PCI, HFrEF, presented with chest pain pressure in nature for the last week, thought having indigestion, was using tums to help the pain but recently has been getting worse, no radiation ,no palpi tations, no syncope, no RABAGO. Allergies No Known Allergies Allergy (Verified 04/30/23 08:48) Home medications list reviewed: Yes Home Medications: Aspirin [Low Dose Aspirin EC] 81 mg PO BEDTIME 09/03/22 Cholecalciferol (Vitamin D3) [Vitamin D3] 25 mcg PO DAILY 09/03/22 Fenofibrate [Tricor*] 145 mg PO BEDTIME 09/03/22 Glimepiride 1 mg PO DAILY 09/03/22 Omeprazole 20 mg PO DAILY 09/03/22 Sotalol HCl [Betapace*] 80 mg PO BID 09/03/22 Ubidecarenone [Co Q-10] 100 mg PO DAILY 09/03/22 Zinc Gluconate [Zinc] 50 mg PO DAILY 09/03/22 Atorvastatin Calcium [Lipitor] 80 mg PO BEDTIME 04/30/23 Cyanocobalamin [Vitamin B-12*] 1,000 mcg PO DAILY 04/30/23 Gabapentin 600 mg PO BID 04/30/23 Multivitamin 1 each PO DAILY 04/30/23 Vit C/E/Zn/Coppr/Lutein/Zeaxan [Preservision Areds 2 Softgel] 1 each PO DAILY 04/30/23 Vitamin K2 (Mk-4) [Vitamin K2 (Menaquinone-4)] 100 mcg PO DAILY 04/30/23 Tamsulosin [Flomax*] 1 pill PO BID 06/08/24 - Past Medical/Surgical History Diabetic: No -: Hypertension , Hyperlipidemia, CAD, prostate cancer -: prostate cancer -: BPH -: Arthritis -: Cataracts -: CHF -: Myocardial Infarction x3 -: CABG , Stent -: Lumbar laminectomy - Social History Alcohol use: Yes CD- Drugs: No Caffeine use: Yes Place of Residence: Home Review of Systems 10-point ROS is otherwise unremarkable Physical Examination Temp Pulse Resp BP Pulse Ox 98.6 F 60 14 152/70 H 92 06/08/24 11:23 06/08/24 11:23 06/08/24 11:23 06/08/24 11:23 06/08/24 11:23 General: Alert, In no apparent distress HEENT: Atraumatic, PERRLA, Mucous membr. moist/pink, EOMI, Sclerae nonicteric Neck: Supple, 2+ carotid pulse no bruit, No LAD, Without JVD or thyroid abnormality Respiratory: Clear to auscultation bilaterally, Normal air movement Cardiovascular: Regular rate/rhythm, Normal S1 S2 Gastrointestinal: Normal bowel sounds, No tenderness Musculoskeletal: No tenderness Integumentary: No rashes Neurological: Normal gait, Normal speech, Normal tone, Normal affect Lymphatics: No axilla or inguinal lymphadenopathy Laboratory Data (last 24 hrs) 06/07/24 06/07/24 06/07/24 22:30 22:30 22:30 WBC 5.40 Hgb 13.6 Hct 41.2 Plt Count 218 PT 12.5 INR 1.10 Sodium 138 Potassium 3.8 BUN 26 H Creatinine 1.31 H Glucose 238 H Magnesium 1.8 Total Bilirubin 0.4 AST 21 ALT 26 Alkaline Phosphatase 58 - Problems (1) NSTEMI (non-ST elevated myocardial infarction) Current Visit: Yes Status: Acute Plan: Patient with PMH of CAD, most recent angiogram shows patent LAD stent, RI 50%, Occluded RCA with patent SVG-OM but got 50% disease at touchdown, patient presented with unstable angina and elevated troponin. NPO after midnight for coronary angiogram in am continue Heparin drip for 48 hours ASA 81 mg daily Lipitor 40 mg daily (2) HTN (hypertension) Current Visit: Yes Status: Acute Plan: continue Vaslartan (3) HLD (hyperlipidemia) Current Visit: Yes Status: Acute Plan: continue lipitor 40 mg daily
[2024-06-08] MEDS: ONDANSETRON 4 MG/2 ML VIAL IV PRN (18:01)
[2024-06-08] MEDS ORDERED: NITROGLYCERIN 1 GM PKT TD ONE (18:15)
[2024-06-08] MEDS: MORPHINE 2 MG/ML SYR IV ONE (18:42)
[2024-06-08] MEDS: ACETAMINOPHEN 325 MG TABLET PO PRN (19:42)
[2024-06-08] MEDS: ASPIRIN EC 81 MG TAB PO SCH (21:33)
[2024-06-08] MEDS: ATORVASTATIN 40 MG TAB PO SCH (21:33)
[2024-06-08] MEDS: NA CHLORIDE 0.9% 1,000 ML IV SCH (21:33)
[2024-06-08] MEDS: FENOFIBRATE 160 MG TAB PO SCH (21:33)
[2024-06-08] MEDS: HEPARIN/D5W 25,000 UNIT/500 ML BAG IV PRN (21:34)
[2024-06-09 04:45] LABS: Platelets 204 thou/uL (152-406)
[2024-06-09 05:08] LABS: Magnesium 1.9 mg/dL (1.6-2.4)
[2024-06-09] MEDS ORDERED: HEPA 1000U/500MLS 2,000 UNIT/1,000 ML BAG IV ONE (11:45)
[2024-06-09] MEDS ORDERED: HEPARIN 10,000 UNIT/10 ML VIAL IV ONE (11:45)
[2024-06-09] MEDS ORDERED: ATROPINE SULF 1 MG/10 ML SYR IV ONE (11:46)
[2024-06-09] MEDS ORDERED: CLOPIDOGREL 75 MG TABLET ONE (11:46)
[2024-06-09] MEDS ORDERED: ASPIRIN 325 MG TAB ONE (11:46)
[2024-06-09] MEDS ORDERED: TICAGRELOR 90 MG TABLET PO ONE (11:46)
[2024-06-09] MEDS ORDERED: VERAPAMIL HCL 10 MG/4 ML VIAL IV ONE (11:46)
[2024-06-09] MEDS ORDERED: LIDOCAINE 1% 20 ML MDV ONE (11:46)
[2024-06-09] MEDS ORDERED: HEPARIN 5000 UNIT/ML 1 ML VIAL ONE (11:46)
[2024-06-09] MEDS ORDERED: MIDAZOLAM HCL 2 MG/2 ML INJ ONE (11:46)
[2024-06-09] MEDS ORDERED: FENTANYL CITR 100 MCG/2 ML ONE (11:47)
[2024-06-09] MEDS ORDERED: NA CHLORIDE 0.9% 500 ML ONE (12:17)
[2024-06-09] MEDS ORDERED: REGADENOSON 0.4 MG/5 ML SYR IV ONE (13:35)
[2024-06-09] MEDS ORDERED: NITROGLYCERIN 0.4 MG/TAB SL ONE (13:48)
--- NOTE | 2024-06-09 14:12 | OP ---
Date of Procedure: 06/09/2024 Surgeon: NIKKI HURST Procedures Performed: 1. Selective coronary angiogram with bypass graft study. 2. FFR of proximal ramus intermedius, disease was insignificant at 0.95. Indication: Non-STEMI. Access: Right common femoral artery 6-N[place]ien, closed with 6-[place] Angio-Seal. Complications: None. Bleeding: Less than 50 mL. Anesthesia: Total sedation time was 1 hour. Description Of Procedure: After risks, benefits, and alternatives were explained, the patient agreed to procedure and signed informed consent. The patient was brought into cardiac catheterization labo ratory, prepped and draped in usual sterile fashion. Then, I accessed right common femoral artery us ing micropuncture kit, ultrasound guidance, fluoroscopy, placed 6-[place] sheath, and took a 6-[place] JL4 catheter into aortic root, engaged left main and took standard views and exchanged for 6 -[place] JR4 exchange which engaged the RCA and SVG to OM, took standard views and then removed the ca theter, gave systemic heparin to assure ACT level above 250 throughout the procedure and took a EBU 3 .5 guide into the aortic root, engaged left main, and took a comet FFR wire into the aortic root. Pr essures were equalized and then advanced the wire into the ramus, passing the area of stenosis, did a stress test using Lexiscan and FFR was recorded at 0.95 pullback. There was no drift and removed th e wire at final angiogram. There were no complications. I removed the guide and the sheath. 6-Fren ch Angio-Seal was used for closure with good hemostasis. Findings: 1. Left main is normal. 2. LAD, widely patent proximal LAD stent and luminal irregularities. 3. Ramus intermedius, it is large vessel, giving collaterals to the RCA, has proximal 50% to 60% sten osis, but FFR was negative at 0.95. There is widely patent stent. 4. Left circumflex, ostially occluded. 5. RCA has a stent with diffuse 50% to 70% stenosis and then becomes subtotal occlusion with collater als getting it from the ramus. Conclusion: Coronary artery disease outlined above; however, heart is well vascularized. Recommendation: Medical management. Bypass Graft Study: There is only 1 graft which is SVG to OM, which is patent, has mid 50% and touch down 50%. SR/MODL Voice ID: [id number] Report ID: [id number]
--- NOTE | 2024-06-09 16:47 | PN ---
Date of Progress Note: 06/09/2024 Subjective: The patient was seen by bedside, doing well. No further chest pain. Review of Systems: No chest pain, shortness of breath, orthopnea, cough. No nausea, vomiting, diarrhea. All other syst ems reviewed are negative. Physical Examination: Vital signs: Reviewed. Head and Neck: Pupils are equal, reactive to light. Intact eye movements. No JVD, no cervical cameron opathy. Neck is supple. Thyroid is not enlarged. Lungs: Clear to auscultation bilaterally. No rhonchi, wheezing, or crackles. No accessory muscle u se Heart: Regular rate and rhythm. No extra sounds. Abdomen: Soft, nontender. Bowel sounds positive. No organomegaly. No masses or hernia. No rigidi ty or rebound. Extremities: No edema, clubbing, cyanosis. Skin: No rash. Neurologic: Alert, awake, and oriented x3. No acute focal deficits appreciated. Investigations: BUN 24, creatinine 1.02. Troponin 632. Hemoglobin is 12.9. Coronary angiogram clemente wed well-vascularized heart and no acute issues. Assessment/plan: 1. Elevated troponin. This is demand ischemia, status post coronary angiogram. There are no acute c hanges. He has a [employer] of the RCA with collaterals from the ramus that appears to be widely patent and the LAD is widely patent. I believe that the reason for his chest pain is extreme elevations of his blood pressure because of chest pain and troponin leak. Recommend good blood pressure control and m onitor overnight. If he continues to be stable, he can be released tomorrow. 2. Dyslipidemia, on statin. Continue current management. 3. Coronary artery disease with chest pain. Recommend to treat with beta-blockers. Continue aspirin and statin. SR/MODL Voice ID: [id number] Report ID: [id number]
[2024-06-09 17:28] VITALS: O2SAT 97
[2024-06-09] MEDS: TAMSULOSIN 0.4 MG SR CAP PO SCH (21:43)
[2024-06-10 05:44] LABS: Absolute Eosinophils 0.2 K/uL (0-0.5); Absolute Lymphocytes (CBC) 1.1 K/uL (0.7-4.9); Absolute Monocytes 0.7 K/uL (0.1-1.3); Absolute Neutrophil 4.6 K/uL (1.8-8.0); Basophils % 0.6 % (0-1.3); Eosinophils % 3.6 % (0-4.4); Lymphocytes % 15.7 % (15.3-44.8); MCH 28.2 pg (27.0-35.0); MCHC 33.4 g/dL (32.0-36.0); MCV 84.6 fL (80-100); MPV 7.9 fL (7.6-11.3); Neutrophils % 69.1 % (41.7-73.7); Nucleated Red Blood Cells % 0.1 % (0-0); Platelets 201 thou/uL (152-406); RBC Red Blood Cell Count 4.61 M/uL (4.33-5.43); Red Cell Distribution Width 14.9 % (12.1-15.2)
[2024-06-10 08:50] VITALS: TEMP 98.4
[2024-06-10 09:55] VITALS: BP 139/67
--- NOTE | 2024-06-12 12:15 | EKG ---
Test Date: 2024-06-07 Test Time: 22:16:49 It Consultant: AF MEASUREMENT RESULTS: Intervals: Rate: 65 AR: 216 QRSD: 102 QT: 460 QTc: 478 [place]: P: 43 AR: 216 QRS: -9 T: 39 INTERPRETIVE STATEMENTS: Sinus rhythm with 1st degree AV block Anterior infarct, age undetermined Abnormal ECG Compared to ECG 07/10/2023 22:47:32 First degree AV block now present Myocardial infarct finding now present Atrial fibrillation no longer present T-wave abnormality no longer present Prolonged QT interval no longer present Electronically Signed On 06-12-24 12:05:46 CDT by Marvin Varma
--- NOTE | 2024-06-15 08:51 | EKG ---
Test Date: 2024-06-09 Test Time: 13:56:45 Chef Saucier: CARLOS MEASUREMENT RESULTS: Intervals: Rate: 62 NV: 232 QRSD: 104 QT: 488 QTc: 495 [place]: P: 61 NV: 232 QRS: 16 T: 44 INTERPRETIVE STATEMENTS: Sinus rhythm with 1st degree AV block Low voltage QRS Nonspecific T wave abnormality Prolonged QT Abnormal ECG Compared to ECG 06/07/2024 22:16:49 Low QRS voltage now present T-wave abnormality now present Prolonged QT interval now present Myocardial infarct finding no longer present Electronically Signed On 06-15-24 08:41:25 CDT by Marvin Varma
== END 2024-06-10 11:57 | disposition home or self-care (01) | DRG 281 ==
LOC: ER 22:04 → ERHOLD 23:40 → 2ND 06-08 00:47
PROVIDERS: ADMIT Family Medicine; ATTEND Hospitalist
PROC: B2121ZZ Fluoroscopy of Single Coronary Artery Bypass Graft using Low Osmolar Contrast (ICD-10-PCS; principal; 2024-06-09)
DX: I25.110 Atherosclerotic heart disease of native coronary artery with unstable angina pectoris (principal); I50.22 Chronic systolic (congestive) heart failure; I21.A1 Myocardial infarction type 2; I11.0 Hypertensive heart disease with heart failure; E78.5 Hyperlipidemia, unspecified; I25.2 Old myocardial infarction; Z85.46 Personal history of malignant neoplasm of prostate; Z95.5 Presence of coronary angioplasty implant and graft; Z68.31 Body mass index [BMI] 31.0-31.9, adult; Z95.1 Presence of aortocoronary bypass graft; Z79.82 Long term (current) use of aspirin; Z79.84 Long term (current) use of oral hypoglycemic drugs; Z79.899 Other long term (current) drug therapy
CPT/HCPCS: 36415; 71045; 76937; 80048; 80053; 80076; 82947; 83735; 83880; 84484; 85025; 85049; 85347; 85610; 85730; 93005; 93455; 93571; 96361; 96374; 99152; 99153; 99285; C1760; C1769; C1893; G0269; J0461; J1644; J2003; J2250; J2270; J2405; J2785; J3010; J7030; J7040; Q9967